=== PATIENT | male | born 1955 | race Caucasian/White ===

== ENCOUNTER → 2021-10-01 09:42 | Outpatient (REF) | payer OTHER, SELFPAY ==
--- NOTE | ~2021-10-01 | NM_ITS ---
EXAMINATION: NM BONE SCAN OF THE WHOLE BODY CLINICAL INFORMATION: Bone metastases. Previous at [facility]. COMPARISON: Previous obesity. TECHNIQUE: Multiple gamma scintillation camera images of the whole body were performed 3 hours following the intravenous administration of 36 mCi Tc-99m MDP. FINDINGS: In the head, no abnormality is seen. In the thoracic cage and upper extremities, there is punctate activity seen in the left posterior shoulder joint. No additional abnormality is seen in the upper extremities or thoracic cage. In the spine, no abnormality is seen. In the pelvis, there is focal abnormality seen in the right posterior iliac crest. Normal symmetrical activity is seen in the SI joints. In the lower extremities, there is heterogeneous bone marrow activity seen in the mid and distal femur bilaterally. In addition, there is moderate intense focal activity seen in the right medial distal femur and left proximal tibia suspicious of metastatic disease. No other definite bony abnormalities are noted. The urinary bladder and faint visualization of both kidneys are noted. NM/NM bone scan whole body IMPRESSION: Suspect metastatic disease involving bilateral distal femur with heterogenous bone marrow. There is focal abnormal activity in the right posterior iliac crest, distal right femur and proximal left tibia. Also visualized is mild focal activity in the left posterior glenohumeral joint or the glenoid.
== END ==
LOC: HO.NUCMED 09:42
PROVIDERS: Visit Provider Internal Medicine
DX: C61 Malignant neoplasm of prostate (principal)
CPT/HCPCS: 78306; A9503

== ENCOUNTER 2021-10-30 10:27 | Outpatient (REF) | payer OTHER, SELFPAY ==
[2021-10-30 12:20] LABS: Cholesterol 248 mg/dL; HDL Cholesterol 42 mg/dL; LDL Cholesterol Calculated 165 mg/dl; Triglycerides 208 mg/dL
[2021-10-30 14:34] LABS: Creatinine Urine 63.82 mg/dL; Microalbum/Creatinine Ratio Ur 31.3 ug/mg cr
== END 2021-10-30 10:28 | disposition home or self-care (01) ==
LOC: HO.HMGCLDS 10:27
PROVIDERS: PCP Internal Medicine; Visit Provider Internal Medicine
DX: Z00.01 Encounter for general adult medical examination with abnormal findings (principal); I10 Essential (primary) hypertension
CPT/HCPCS: 36415; 80061; 82043

== ENCOUNTER 2022-01-28 11:36 | Outpatient (REF) | payer OTHER, SELFPAY ==
[2022-01-28 14:04] LABS: Estimated Average Glucose 183 mg/dL
[2022-01-28 14:11] LABS: Alanine Aminotransferase 15 U/L (0-40); Anion Gap 10 (12-20); Aspartate Amino Transferase 14 U/L (5-37); Blood Urea Nitrogen 14 mg/dL (9-16); Calcium 9.1 mg/dL (8.4-10.2); Carbon Dioxide 25 mmol/L (22-29); Chloride 110 mmol/L (96-108); Cholesterol 220 mg/dL; Estimated Glomerular Filt Rate > 60; Glucose Fasting 142 mg/dL (60-99); HDL Cholesterol 49 mg/dL; LDL Cholesterol Calculated 140 mg/dl; Potassium 4.1 mmol/L (3.3-5.1); Sodium 141 mmol/L (135-145); Triglycerides 159 mg/dL
== END 2022-01-28 11:37 | disposition home or self-care (01) ==
LOC: HO.HMGCLDS 11:36
PROVIDERS: PCP Internal Medicine; Visit Provider Internal Medicine
DX: E11.65 Type 2 diabetes mellitus with hyperglycemia (principal); E11.40 Type 2 diabetes mellitus with diabetic neuropathy, unspecified; Z79.4 Long term (current) use of insulin; I10 Essential (primary) hypertension; E78.5 Hyperlipidemia, unspecified
CPT/HCPCS: 36415; 80048; 80061; 83036; 84450; 84460

== ENCOUNTER 2022-03-07 07:37 | Outpatient (REF) | payer OTHER, SELFPAY ==
--- NOTE | ~2022-03-07 | CT_ITS ---
EXAMINATION: CT ABDOMEN AND PELVIS WITH CONTRAST CLINICAL INFORMATION: Staging. Prostate cancer. COMPARISON: None TECHNIQUE: Multidetector volumetric images were obtained from the superior aspect of the liver through the pubic symphysis following administration of 50 mL of Omnipaque 350 intravenous contrast. The S Oral contrast: No This CT examination was performed using dose optimization techniques as appropriate, variously including the following: *Automated exposure control *Adjustment of mA and/or kV according to patient size (this includes techniques or standardized protocols for targeted exams where dose is matched to indication/reason for exam; i.e. extremities or head) *Use of iterative reconstruction technique DLP: 1072 mGy-cm FINDINGS: LUNG BASES: The visualized lung bases are unremarkable. LIVER, GALLBLADDER, AND BILIARY TREE: The liver is normal in size, shape, and attenuation. No focal hepatic lesion or biliary ductal dilatation is present. The gallbladder is unremarkable with no evidence of radiopaque gallstones, gallbladder wall thickening, or obvious pericholecystic inflammatory changes. PANCREAS: Unremarkable. SPLEEN: There is a 5 mm low-attenuation lesion in the spleen. This is difficult to characterize due to small size. The spleen is otherwise unremarkable. ADRENAL GLANDS: There is a 1 x 1.2 cm right adrenal nodule. Hounsfield units postcontrast measure 58 which is indeterminate. The left adrenal gland is unremarkable. KIDNEYS AND URETERS: The kidneys are normal in size, shape, and attenuation. No hydronephrosis, hydroureter, or calculi seen. No perinephric stranding. BLADDER: There is abnormal soft tissue at the base of the bladder, presumably related to the prostate gland. GASTROINTESTINAL TRACT: There is mild diverticulosis of the colon. Small and large bowel is otherwise normal. The appendix is normal. The stomach is normal. ABDOMINAL WALL: No significant hernia is appreciated. LYMPH NODES: Normal. VASCULAR: There is evidence of atherosclerotic disease. No aneurysm is seen. PELVIC VISCERA: The prostate gland does not appear enlarged. There is abnormal soft tissue at the base of the bladder, presumably related to the prostate gland. No soft tissue mass or enlarged lymph nodes in the pelvis are seen. OSSEOUS STRUCTURES: There is diffuse sclerotic bone disease. CT/CT abdomen pelvis w con IMPRESSION: Diffuse sclerotic bone disease. Abnormal soft tissue seen at the base of the bladder presumably related to the prostate gland. The prostate gland does not appear enlarged. 1 x 1.2 cm right adrenal nodule. 5 mm low-attenuation splenic lesion. No adenopathy. Mild diverticulosis of the colon. Fleischner guidelines were followed.
--- NOTE | ~2022-03-07 | CT_ITS ---
EXAMINATION: CT CHEST WITH CONTRAST CLINICAL INFORMATION: Staging. Prostate cancer. COMPARISON: None TECHNIQUE: Multidetector volumetric CT imaging of the chest was obtained after the administration of 50 mL of Omnipaque 350 intravenous contrast without immediate adverse reactions. Axial MIP volume rendering provided. Sagittal and coronal reformatted images were obtained. This CT examination was performed using dose optimization techniques as appropriate, variously including the following: *Automated exposure control *Adjustment of mA and/or kV according to patient size (this includes techniques or standardized protocols for targeted exams where dose is matched to indication/reason for exam; i.e. extremities or head) *Use of iterative reconstruction technique DLP: 526 mGy-cm FINDINGS: LUNGS: The lungs are clear with no evidence of inflammation or nodules. MEDIASTINUM: There is a trace pericardial effusion. There is mild coronary artery calcification. The mediastinum is otherwise normal. PLEURA: There is no pleural effusion. No pleural mass or thickening. AXILLA: No lymphadenopathy. UPPER ABDOMEN: See CT of the abdomen and pelvis from the same day. OSSEOUS STRUCTURES: There is diffuse sclerotic bone disease. No fracture is seen. CT/CT chest w con IMPRESSION: Trace pericardial effusion. Mild coronary artery calcification. Diffuse sclerotic bone disease. Fleischner guidelines were followed.
[2022-03-07] MEDS: iohexoL 350 MG/ML 100 ML INFUS..BTL 85 ML IV (10:39)
== END 2022-03-07 07:38 | disposition home or self-care (01) ==
LOC: HO.CT 07:37
PROVIDERS: PCP Internal Medicine; Visit Provider Internal Medicine
DX: C79.51 Secondary malignant neoplasm of bone (principal)
CPT/HCPCS: 71260; 74177; Q9967

== ENCOUNTER 2022-04-26 08:36 | Outpatient (REF) | payer OTHER, SELFPAY ==
[2022-04-26 11:55] LABS: Alanine Aminotransferase 14 U/L (0-40); Aspartate Amino Transferase 14 U/L (5-37); Cholesterol 248 mg/dL; HDL Cholesterol 46 mg/dL; LDL Cholesterol Calculated 164 mg/dl; Triglycerides 192 mg/dL
[2022-04-26 12:14] LABS: Estimated Average Glucose 209 mg/dL; Hemoglobin A1c % 8.9 %
== END 2022-04-26 08:37 | disposition home or self-care (01) ==
LOC: HO.HMGCLDS 08:36
PROVIDERS: Visit Provider Internal Medicine
DX: E78.5 Hyperlipidemia, unspecified (principal); E11.65 Type 2 diabetes mellitus with hyperglycemia; Z79.4 Long term (current) use of insulin
CPT/HCPCS: 36415; 80061; 83036; 84450; 84460

== ENCOUNTER → 2022-06-11 09:24 | Outpatient (REF) | payer OTHER, SELFPAY ==
--- NOTE | ~2022-06-11 | NM_ITS ---
EXAMINATION: NM BONE SCAN OF THE WHOLE BODY CLINICAL INFORMATION: Malignant neoplasm of the prostate, evaluate response to therapy. Patient states pain all over. COMPARISON: The previous bone scan dated 10/01/2021 is available for comparison. No recent radiographs are available for comparison. The diagnostic CT scan of the chest, abdomen, and pelvis, dated 03/07/2022, is available for comparison. TECHNIQUE: Multiple gamma scintillation camera images of the whole body were performed 3.25 hours following the intravenous administration of 39 mCi Tc-99m MDP. FINDINGS: In the head, multiple foci of moderately intense abnormal activity are present throughout the calvarium, the base of the anterior fossa, likely in the sphenoid bone, and in the right mandibular ramus. In the thoracic cage and upper extremities, multiple small foci of mildly to moderately intense abnormally increased activity are present in the sternum including the sternal manubrium, the shafts and heads of both humeri, the lateral aspect of the right clavicle at the acromioclavicular joint, and in a few ribs. In the spine, foci of increased activity are present in the lower thoracic and upper lumbar spine. In the pelvis, multiple abnormalities are present throughout the pelvis including a large mildly intense focus in the lateral superior right iliac crest, several foci in the sternum and in additional foci in the left ischium. In the lower extremities, multiple foci are present in both femurs including intense abnormalities in the intertrochanteric region of the right femur and smaller but similarly intense foci in the distal left femur. Additional mild abnormalities are present in the proximal right femur including the right femoral head and intertrochanteric region and a discrete focus in the right proximal femoral shaft. Several lesions are present in the mid and distal shaft of the left femur and in a small focus in the left femoral head. Intense abnormalities are present in the proximal tibias bilaterally, more severely on the right. No other definite bony abnormalities are noted. The urinary bladder and faint visualization of both kidneys are noted. Compared to the previous scan dated 10/01/2021, multiple new lesions are present and previously present lesions, particularly in the periarticular bones of both knees and in the shafts of both femurs and in the calvarium have increased in size and intensity. Lesions are present in the sternum and in the spine. NM/NM bone scan whole body IMPRESSION: Widespread metastatic tumor involvement of bone with significant progression in the bone scan appearance since the prior 10/01/2021 scan.
== END ==
LOC: HO.NUCMED 09:24
PROVIDERS: PCP Internal Medicine; Visit Provider Internal Medicine
DX: C61 Malignant neoplasm of prostate (principal)
CPT/HCPCS: 78306; A9503

== ENCOUNTER 2022-07-15 12:45 | Outpatient (REF) | payer OTHER, SELFPAY ==
[2022-07-15 14:15] LABS: Potassium 4.1 mmol/L (3.3-5.1)
== END 2022-07-15 12:46 | disposition home or self-care (01) ==
LOC: HO.HMGCLDS 12:45
PROVIDERS: PCP Internal Medicine; Visit Provider Internal Medicine
DX: E87.6 Hypokalemia (principal)
CPT/HCPCS: 36415; 84132

== ENCOUNTER 2022-11-05 10:14 | Outpatient (REF) | payer OTHER, SELFPAY ==
--- NOTE | ~2022-11-05 | PE_ITS ---
EXAMINATION: Fluorine-18 FDG PET/CT Scan CLINICAL INDICATION: Rising PSA. Evaluation for metastatic prostate cancer. PROCEDURE: 58 minutes following the intravenous administration of 19.0 mCi of fluorine 18 FDG, images from the base of the skull to the mid thighs were obtained using a combined PET/CT scanner with CT scan based attenuation correction. No intravenous contrast was administered. Transverse, coronal, sagittal, and volume reconstruction projections were obtained. The patient's blood glucose as determined by a finger stick, was 200 mg/dl immediately prior to injection. The radiotracer was injected intravenously through right antecubital superficial vein, without any complications. Total CT exam dose-length product 974.26 mGy-cm * These CT images were obtained using dose optimization techniques as appropriate, variously including the following: Automated exposure control * Adjustment of mA and/or kV according to patient size (this includes techniques or standardized protocols for targeted exams where dose is matched to indication/reason for exam; i.e. extremities or head) * Use of iterative reconstruction technique COMPARISON: Whole-body bone scan done on 06/11/[address] of the chest abdomen and pelvis done on 03/07/2022 FINDINGS: NECK AND VISUALIZED HEAD: No FDG avid disease. THORAX: No FDG avid disease. Trace pericardial effusion. ABDOMEN AND PELVIS: No FDG avid disease. Stable approximately 1.2 cm maximum dimension isodense right adrenal nodule with Hounsfield value of 41. No FDG avid lymphadenopathy. MUSCULOSKELETAL: Extensive diffuse FDG uptake is identified throughout the entire visualized axial and appendicular skeleton, concordant with CT detected extensive diffuse area of sclerosis, consistent with diffuse osseous metastases. VASCULAR: Mild atherosclerotic disease. No evidence of aneurysm. PET/PET CT fusion skull to thigh IMPRESSION: 1. Extensive diffuse osseous metastases throughout the entire axial and visualized appendicular skeleton, concordant with prior whole-body bone scan and CT of the chest abdomen and pelvis done on 06/11/2022 and 03/07/2022 respectively, consistent with M1b disease in this patient with history of prostate cancer. 2. No FDG evidence of visceral metastasis. 3. Follow-up whole-body PSMA PET CT study may be considered for further clarification, if clinically appropriate.
== END 2022-11-05 10:15 | disposition home or self-care (01) ==
LOC: HO.PET 10:14
PROVIDERS: PCP Internal Medicine; Visit Provider Internal Medicine
DX: Z13.89 Encounter for screening for other disorder (principal)

== ENCOUNTER 2023-01-14 08:30 | Outpatient (REF) | payer OTHER, SELFPAY ==
[2023-01-14 12:02] LABS: Estimated Average Glucose 137 mg/dL; Hemoglobin A1c % 6.4 %
[2023-01-14 12:16] LABS: Creatinine Urine 62.85 mg/dL; Microalbumin Urine < 5.0 mg/L
[2023-01-14 12:30] LABS: Alanine Aminotransferase 11 U/L (0-40); Anion Gap 15 (12-20); Aspartate Amino Transferase 19 U/L (5-37); Blood Urea Nitrogen 12 mg/dL (9-16); Calcium 7.4 mg/dL (8.4-10.2); Carbon Dioxide 20 mmol/L (22-29); Chloride 110 mmol/L (96-108); Cholesterol 240 mg/dL; Estimated Glomerular Filt Rate > 60; Glucose Fasting 130 mg/dL (60-99); HDL Cholesterol 35 mg/dL; LDL Cholesterol Calculated 153 mg/dl; Potassium 5.7 mmol/L (3.3-5.1); Sodium 139 mmol/L (135-145); Triglycerides 263 mg/dL
== END 2023-01-14 08:31 | disposition home or self-care (01) ==
LOC: HO.HMGCLDS 08:30
PROVIDERS: PCP Internal Medicine; Visit Provider Internal Medicine
DX: E11.40 Type 2 diabetes mellitus with diabetic neuropathy, unspecified (principal); E11.65 Type 2 diabetes mellitus with hyperglycemia; E78.5 Hyperlipidemia, unspecified; I10 Essential (primary) hypertension; Z79.4 Long term (current) use of insulin
CPT/HCPCS: 36415; 80048; 80061; 82043; 83036; 84450; 84460

== ENCOUNTER 2023-01-30 12:39 | Outpatient (REF) | payer OTHER, SELFPAY ==
[2023-01-30 14:39] LABS: Alanine Aminotransferase 10 U/L (0-40); Albumin Level 3.6 g/dL (3.5-5.0); Alkaline Phosphatase 341 U/L (39-117); Anion Gap 13 (12-20); Aspartate Amino Transferase 19 U/L (5-37); Bilirubin Total 0.4 mg/dL (0.0-1.0); Blood Urea Nitrogen 10 mg/dL (9-16); Calcium 8.3 mg/dL (8.4-10.2); Carbon Dioxide 22 mmol/L (22-29); Chloride 111 mmol/L (96-108); Estimated Glomerular Filt Rate > 60; Glucose Random 180 mg/dL (60-115); Potassium 5.1 mmol/L (3.3-5.1); Sodium 141 mmol/L (135-145); Total Protein 5.5 g/dL (6.5-8.0)
== END 2023-01-30 12:40 | disposition home or self-care (01) ==
LOC: HO.HMGCLDS 12:39
PROVIDERS: PCP Internal Medicine; Visit Provider Internal Medicine
DX: C79.51 Secondary malignant neoplasm of bone (principal)
CPT/HCPCS: 36415; 80053

== ENCOUNTER 2023-02-19 09:30 | Outpatient (RCR) | payer OTHER, SELFPAY ==
[2021-07-31 11:04] VITALS: BP 147/66; PULSE 80; RESP 14; TEMP 36.2; O2SAT 100; BMI 32.0
--- NOTE | 2021-07-31 11:17 | P.CNHO_ITS ---
Subjective - Subjective Chief complaint: Prostate cancer Consult date: 07/31/21 Primary Care Provider: Tyrese Diop Medical Summary: Diagnosis: Metastatic prostate cancer March 2021 Presented with urinary obstruction and diffuse abdominal and back pain in March 2021. CT abdomen/pelvis with contrast performed 04/14/2021 at [facility] revealed markedly distended bladder. Diffuse sclerotic bone disease concerning for metastatic disease, moderate bilateral hydroureteronephrosis secondary to bladder distention. Small bilateral pleural effusions. Bone scan performed 04/02/2021 revealed diffuse sclerotic bone lesions throughout the axial skeleton and proximal long bones. He was started on leuprolide 45 mg subQ every 6 months and bicalutamide 50 mg p.o. daily. 04/27/2021 he was started on abiraterone 1000 mg p.o. daily and prednisone [address] korey Hines. HPI - Consult Narrative Reason for consult: Metastatic prostate cancer Narrative: Isaac Salvador is a 66 year old male who has been diagnosed with metastatic [facility] cancer in March 2021. All his care until now has been at [facility]. He is currently receiving treatment with abiraterone. He is receiving Lupron injections with his urologist Dr. Eckert. He has undergone prostate biopsy. He was told he has bony metastasis, he does not recall being started on bone strengthening therapy with denosumab. He wants to switch his care to [facility] as he lives closer here and his family lives in this area. At this time, he denies any acute complaints such as chest pain, shortness of breath, excess fatigue, fever or chills. He is taking his pills abiraterone along with prednisone twice daily and tolerating it well. There is no family history of prostate cancer. Review of Systems - Constitutional Reports as per HPI, Reports no additional constitutional complaints - Cardiovascular Reports no additional cardiovascular complaints - Respiratory Reports no additional respiratory complaints - Gastrointestinal Reports no additional gastrointestinal complaints [facility] Medical History: Medical History (Last Updated 07/31/21 @ 08:23 by Leonor Dooley) Anxiety Benign hypertension Bone pain BPH (benign prostatic hyperplasia) Chronic post-traumatic stress disorder (PTSD) CTS (carpal tunnel syndrome) Depression, major Diabetic neuropathy Elevated alkaline phosphatase level Erectile dysfunction History of nephrolithiasis History of nuclear stress test 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 Insulin long-term use 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 benzodiazepine use Obesity OCD (obsessive compulsive disorder) Polyneuropathy in diabetes Type 2 diabetes mellitus Family History: Family History (Last Updated 07/31/21 @ 11:10 by Leonor Dooley) Paternal Uncle Cancer Maternal Uncle Prostate cancer Maternal Uncle Prostate cancer Family/Other Prostate cancer Maternal Grandmother Cancer of kidney Sister Skin cancer Sister Stroke Father Heart attack Surgical History: Surgical History (Last Updated 07/31/21 @ 11:07 by Leonor Dooley) No pertinent past surgical history Social History: Social History (Last Updated 07/31/21 @ 11:10 by Leonor Dooley) Alcohol History: Alcohol intake: former Alcohol History Details: Alcohol intake frequency: does not drink Tobacco History: Patient Tobacco Use Status: Never used Tobacco Substance Use History: Use of substances other than those prescribed or required for medical reasons : No Home Medications and Allergies Home Medications Medication Instructions Recorded Confirmed Type cholecalciferol (vitamin D3) 50 50 mcg PO DAILY 07/31/21 07/31/21 History mcg (2,000 unit) capsule (Vitamin D3) finasteride 5 mg tablet 5 mg PO DAILY 07/31/21 07/31/21 History gabapentin 600 mg tablet 600 mg PO DAILY 07/31/21 07/31/21 History glyburide 5 mg tablet 5 mg PO BID 07/31/21 07/31/21 History insulin glargine 100 unit/mL (3 20 unit SUBCUT QAM 07/31/21 07/31/21 History mL) subcutaneous pen (Lantus Solostar U-100 Insulin) insulin needles (disposable) 31 07/31/21 07/31/21 History leuprolide (6 month) 45 mg (6 45 mg SUBCUT [id number] 07/31/21 07/31/21 History month) subcutaneous syringe (Eligard) lisinopril 40 mg tablet 40 mg PO DAILY 07/31/21 07/31/21 History lorazepam 1 mg tablet 1 mg PO TID PRN 07/31/21 07/31/21 History [id number]-[id number]-efaep acid 0.4 1 tab PO DAILY 07/31/21 07/31/21 History mg-lycopene 300 mcg-lutein 250 mcg tablet (Centrum Silver) prednisone 5 mg tablet 1 tab PO BID 07/31/21 07/31/21 History tamsulosin 0.4 mg capsule 0.4 mg PO DAILY 07/31/21 07/31/21 History Allergies Allergy/AdvReac Type Severity Reaction Status Date / Time metformin Allergy Intermediate vomitting Verified 07/31/21 11:10 Physical Exam Vital signs: Vital Signs Temp 97.1 F 07/31/21 11:04 Pulse 80 07/31/21 11:04 Resp 14 07/31/21 11:04 BP 147/66 H 07/31/21 11:04 Pulse Ox 100 07/31/21 11:04 Intake & Output 07/30/21 07/31/21 07/31/21 18:59 06:59 18:59 Other: Weight 101.2 kg Weight in Grams [id number] Weight 101.2 kg - Constitutional Present: no acute distress, average body habitus - Routine HEENT Exam Head: Present: normal inspection Eye: Present: normal appearance - Routine Neck Exam Present: supple. Absent: lymphadenopathy - Routine Respiratory Exam Present: CTAB. Absent: accessory muscle use - Routine Cardiovascular Exam Cardiovascular: Present: S1, S2 - Routine Abdominal Exam Present: normal bowel sounds. Absent: mass - Routine Extremities Exam Absent: calf tenderness, pedal edema - Routine Skin Exam Present: intact. Absent: cyanosis Hem/Onc Consult Result - Labs CBC & Chem 7: 07/31/21 12:24 07/31/21 12:24 Assessment and Plan Patient Active problem list reviewed?: Yes (1) Prostate cancer Status: Acute Assessment and plan: 1. This is a pleasant 66-year-old male with metastatic prostate cancer, adenocarcinoma widely metastatic to bone. Initial PSA of 501. He was started on combined androgen blockade, Casodex and Lupron. He was taken of the Casodex a few weeks later and was started on abiraterone 1000 mg daily along with prednisone 5 mg b.i.d.. He has been on this since April 2021. The PSA has come down to 4.17. His bone scan showed innumerable metastatic lesions throughout the axial skeleton, femurs, humeri and left proximal tibia. Since he does not have castration resistant prostate cancer, I will be holding off on bone strengthening therapy such Zolendronic acid or denosumab. His bone pain appears to be well controlled at this time. 2. Normocytic anemia. Previously his hemoglobin was below 9 gram/dL. Workup was negative for hematinic deficiencies and hemolysis. 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 His anemia has improved significantly with treatment of his cancer. Follow-up in 1 month. - Time Spent With Patient Time Spent with Patient (in minutes): 35
[2021-07-31 12:36] LABS: MANUAL DIFF FLAG NO
[2021-07-31 12:59] LABS: Basophils Percent Auto 0.2 % (0-2); Eosinophils Absolute Auto 0.1 X10*3/uL (0.0-0.4); Eosinophils Percent Auto 1.2 % (0-4); Hemoglobin 11.3 g/dl (14.0-18.0); Imm Gran Abs Auto 0.03 X10*3/uL (0.00-0.03); Imm Gran Pct Auto 0.5 % (0.0-0.4); Lymphocytes Absolute Auto 1.2 X10*3/uL (1.2-4.9); Lymphocytes Percent Auto 18.8 % (20-40); Mean Corpuscular HGB Conc 31.4 g/dl (31.0-36.0); Mean Corpuscular Hemoglobin 28.6 pg (27.0-33.0); Mean Corpuscular Volume 91.1 fL (80-98); Mean Platelet Volume 9.9 fL (9.4-12.4); Monocytes Absolute Auto 0.4 X10*3/uL (0.1-1.2); Monocytes Percent Auto 6.1 % (2-11); Neutrophils Absolute Auto 4.8 X10*3/uL (2.0-8.3); Neutrophils Percent Auto 73.2 % (45-73); Platelet Count 245 X10*3/uL (160-400); Red Blood Count 3.95 X10*6/uL (4.60-5.80); Red Cell Distribution Width 13.2 % (11.0-16.0); White Blood Count 6.6 X10*3/uL (4.8-10.8)
--- NOTE | 2021-07-31 13:01 | MHC.HEMONC ---
Pt here for consult with Dr Plaza. He was accompanied by his sister. He is transferring care from [facility] with Dr Hines. He is continuing on Zytiga and Prednisone and Dr Plaza reordered at [facility]. Pt had labs drawn. We will call with appt for Denosumab once auth is obtained. He will have second dose in a month from then and see Dr Plaza in f/u.
[2021-07-31 13:20] LABS: Albumin Level 4.2 g/dL (3.5-5.0); Anion Gap 14 (12-20); Bilirubin Total 0.5 mg/dL (0.0-1.0); Blood Urea Nitrogen 17 mg/dL (9-16); Calcium 9.3 mg/dL (8.4-10.2); Chloride 107 mmol/L (96-108); Creatinine Clr Calc Pharmacy 88.9; Estimated Glomerular Filt Rate > 60; Glucose Random 304 mg/dL (60-115); Potassium 5.1 mmol/L (3.3-5.1); Sodium 139 mmol/L (135-145); Total Protein 6.7 g/dL (6.5-8.0)
[2021-07-31 13:32] LABS: Alanine Aminotransferase 19 U/L (0-40); Alkaline Phosphatase 900 U/L (39-117); Aspartate Amino Transferase 16 U/L (5-37); Carbon Dioxide 23 mmol/L (22-29)
[2021-07-31 13:40] LABS: Prostate Specific Antigen 4.17 ng/mL (<0.05-4.0)
--- NOTE | 2021-07-31 16:10 | MHC.HEMONCMA ---
Patient came in for a consult, states he is doing alright. Clinical summary was reviewed and updated. Patient had labs. Dr Plaza wants him to have Prolia injections, we are waiting for auth. Once the auth comes back we will schedule him. We are also waiting on his pathology report sent to us along with his slides sent to our Pathology.
--- NOTE | 2021-08-02 11:15 | MHC.HEMONC ---
Denosumab PA request on hold (08/01/21) per Dr. Plaza .
--- NOTE | 2021-08-03 08:52 | MHC.HEMONC ---
Pt is not going to be receiving Denosumab per Dr Plaza. Pt notified. He has f/u with Dr Plaza in 6 weeks.
--- NOTE | 2021-09-10 11:27 | P.PNHO_ITS ---
Medical Summary - Medical Summary Date of Service: 09/10/21 Chief complaint: Follow-up Medical Summary: Diagnosis: Metastatic prostate cancer March 2021 Presented with urinary obstruction and diffuse abdominal and back pain in March 2021. CT abdomen/pelvis with contrast performed 04/14/2021 at [facility] revealed markedly distended bladder. Diffuse sclerotic bone disease concerning for metastatic disease, moderate bilateral hydroureteronephrosis secondary to bladder distention. Small bilateral pleural effusions. Bone scan performed 04/02/2021 revealed diffuse sclerotic bone lesions throughout the axial skeleton and proximal long bones. He was started on leuprolide 45 mg subQ every 6 months and bicalutamide 50 mg p.o. daily. 04/27/2021 he was started on abiraterone 1000 mg p.o. daily and prednisone [address] korey Hines. His PSA is coming down. I will repeat bone scan at this time. He sugars are slightly elevated as he is on prednisone. He will follow up with his PCP about this. Follow-up in 2 months. Interval History Interval history: Patient is here in follow-up. He is doing better overall but reports persistent achiness in bones. This is not persistent and it is fleeting. He denies any acute complaints such as chest pain, shortness of breath, excess fatigue, fever or chills. He is taking his pills abiraterone along with prednisone twice daily and tolerating it well. He does report higher blood sugar readings. He has not had a follow-up with his PCP in sometime. He is changing his physician. Review of Systems - Constitutional Reports as per HPI, Reports no additional constitutional complaints - Cardiovascular Reports no additional cardiovascular complaints - Respiratory Reports no additional respiratory complaints - Gastrointestinal Reports no additional gastrointestinal complaints [facility] Medical History: Medical History (Last Reviewed 09/10/21 @ 11:36 by Leonor Dooley) Anxiety Benign hypertension Bone pain BPH (benign prostatic hyperplasia) Chronic post-traumatic stress disorder (PTSD) CTS (carpal tunnel syndrome) Depression, major Diabetic neuropathy Elevated alkaline phosphatase level Erectile dysfunction History of nephrolithiasis History of nuclear stress test 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 Insulin long-term use 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 benzodiazepine use Obesity OCD (obsessive compulsive disorder) Polyneuropathy in diabetes Type 2 diabetes mellitus Family History: Family History (Last Reviewed 09/10/21 @ 11:36 by Leonor Dooley) Paternal Uncle Cancer Maternal Uncle Prostate cancer Maternal Uncle Prostate cancer Family/Other Prostate cancer Maternal Grandmother Cancer of kidney Sister Skin cancer Sister Stroke Father Heart attack Surgical History: Surgical History (Last Reviewed 09/10/21 @ 11:36 by Leonor Dooley) No pertinent past surgical history Social History: Social History (Last Updated 07/31/21 @ 11:10 by Leonor Dooley) Alcohol History: Alcohol intake: former Alcohol History Details: Alcohol intake frequency: does not drink Tobacco History: Patient Tobacco Use Status: Never used Tobacco Substance Use History: Use of substances other than those prescribed or required for medical reasons : No Oncology Screenings - ECOG Performance Status ECOG Performance Status: 1 Home Medications and Allergies Home Medications Medication Instructions Recorded Confirmed Type cholecalciferol (vitamin D3) 50 50 mcg PO DAILY 07/31/21 09/10/21 History mcg (2,000 unit) capsule (Vitamin D3) finasteride 5 mg tablet 5 mg PO DAILY 07/31/21 09/10/21 History gabapentin 600 mg tablet 600 mg PO DAILY 07/31/21 09/10/21 History glyburide 5 mg tablet 5 mg PO BID 07/31/21 09/10/21 History insulin glargine 100 unit/mL (3 20 unit SUBCUT QAM 07/31/21 09/10/21 History mL) subcutaneous pen (Lantus Solostar U-100 Insulin) insulin needles (disposable) 31 07/31/21 09/10/21 History leuprolide (6 month) 45 mg (6 45 mg SUBCUT [id number] 07/31/21 09/10/21 History month) subcutaneous syringe (Eligard) lisinopril 40 mg tablet 40 mg PO DAILY 07/31/21 09/10/21 History lorazepam 1 mg tablet 1 mg PO TID PRN 07/31/21 09/10/21 History hipvbwjx-nxz-poypb acid 0.4 1 tab PO DAILY 07/31/21 09/10/21 History mg-lycopene 300 mcg-lutein 250 mcg tablet (Centrum Silver) prednisone 5 mg tablet 1 tab PO BID 07/31/21 09/10/21 History tamsulosin 0.4 mg capsule 0.4 mg PO DAILY 07/31/21 09/10/21 History Allergies Allergy/AdvReac Type Severity Reaction Status Date / Time metformin Allergy Intermediate vomitting Verified 09/10/21 11:36 Exam Vital signs: Vital Signs Temp 97.1 F 07/31/21 11:04 Pulse 80 07/31/21 11:04 Resp 14 07/31/21 11:04 BP 147/66 H 07/31/21 11:04 Pulse Ox 100 07/31/21 11:04 Weight 101.2 kg Body Mass Index 32.0 - Constitutional Present: no acute distress, average body habitus - Routine HEENT Exam Head: Present: normal inspection - Routine Respiratory Exam Present: CTAB. Absent: accessory muscle use - Routine Cardiovascular Exam Cardiovascular: Present: S1, S2 - Routine Abdominal Exam Present: normal bowel sounds. Absent: mass - Routine Extremities Exam Absent: calf tenderness, pedal edema - Routine Skin Exam Present: intact. Absent: cyanosis Data - Labs CBC & Chem 7: 09/10/21 12:07 09/10/21 12:07 Labs: 07/31/21 12:24 Complete Blood Count Auto Diff Routine Comprehensive Met. Panel Routine PSA [Prostate Specific Antigen] Routine Laboratory Last Values WBC 6.6 X10*3/uL (4.8-10.8) 07/31/21 12:24 RBC 3.95 X10*6/uL (4.60-5.80) L 07/31/21 12:24 Hgb 11.3 g/dl (14.0-18.0) L 07/31/21 12:24 Hct 36.0 % (42-52) L 07/31/21 12:24 MCV 91.1 fL (80-98) 07/31/21 12:24 MCH 28.6 pg (27.0-33.0) 07/31/21 12:24 MCHC 31.4 g/dl (31.0-36.0) 07/31/21 12:24 RDW 13.2 % (11.0-16.0) 07/31/21 12:24 Plt Count 245 X10*3/uL (160-400) 07/31/21 12:24 MPV 9.9 fL (9.4-12.4) 07/31/21 12:24 Immature Gran % (Auto) 0.5 % (0.0-0.4) H 07/31/21 12:24 Neut % (Auto) 73.2 % (45-73) H 07/31/21 12:24 Lymph % (Auto) 18.8 % (20-40) L 07/31/21 12:24 Fallon % (Auto) 6.1 % (2-11) 07/31/21 12:24 Eos % (Auto) 1.2 % (0-4) 07/31/21 12:24 Baso % (Auto) 0.2 % (0-2) 07/31/21 12:24 Lymph # (Auto) 1.2 X10*3/uL (1.2-4.9) 07/31/21 12:24 Fallon # (Auto) 0.4 X10*3/uL (0.1-1.2) 07/31/21 12:24 Eos # (Auto) 0.1 X10*3/uL (0.0-0.4) 07/31/21 12:24 Baso # (Auto) 0.0 X10*3/uL (0.0-0.2) 07/31/21 12:24 Abs Immat Gran (auto) 0.03 X10*3/uL (0.00-0.03) 07/31/21 12:24 Absolute Neuts (auto) 4.8 X10*3/uL (2.0-8.3) 07/31/21 12:24 Absolute Nucleated RBC 0.000 X10*3/uL (0.0-0.012) 07/31/21 12:24 Nucleated RBC % (auto) 0.0 /100WBC (0.0-0.2) 07/31/21 12:24 Sodium 139 mmol/L (135-145) 07/31/21 12:24 Potassium 5.1 mmol/L (3.3-5.1) 07/31/21 12:24 Chloride 107 mmol/L (96-108) 07/31/21 12:24 Carbon Dioxide 23 mmol/L (22-29) 07/31/21 12:24 Anion Gap 14 (12-20) 07/31/21 12:24 BUN 17 mg/dL (9-16) H 07/31/21 12:24 Creatinine 1.00 mg/dL (0.5-1.4) 07/31/21 12:24 Estim Creat Clear Calc 88.9 07/31/21 12:24 Estimated GFR > 60 07/31/21 12:24 Random Glucose 304 mg/dL (60-115) H 07/31/21 12:24 Calcium 9.3 mg/dL (8.4-10.2) 07/31/21 12:24 Total Bilirubin 0.5 mg/dL (0.0-1.0) 07/31/21 12:24 AST 16 U/L (5-37) 07/31/21 12:24 ALT 19 U/L (0-40) 07/31/21 12:24 Alkaline Phosphatase 900 U/L (39-117) H 07/31/21 12:24 Total Protein 6.7 g/dL (6.5-8.0) 07/31/21 12:24 Albumin 4.2 g/dL (3.5-5.0) 07/31/21 12:24 Prostate Specific Ag 4.17 ng/mL (<0.05-4.0) H 07/31/21 12:24 Assessment and Plan Patient Active problem list reviewed?: Yes (1) Prostate cancer Status: Chronic Assessment and plan: 1. This is a pleasant 66-year-old male with metastatic prostate cancer, adenocarcinoma widely metastatic to bone. Initial PSA of 501. He was started on combined androgen blockade, Casodex and Lupron. He was taken of the Casodex a few weeks later and was started on abiraterone 1000 mg daily along with prednisone 5 mg b.i.d.. He has been on this since April 2021. The PSA has come down to 4.17. His bone scan showed innumerable metastatic lesions throughout the axial skeleton, femurs, humeri and left proximal tibia. Since he does not have castration resistant prostate cancer, I will be holding off on bone strengthening therapy such Zolendronic acid or denosumab. He has mild stiffness in his joints and some muscular pain. This could be side effect of his ongoing treatment. PSA level is down to 3.86 today, his alkaline phosphatase level has come down from 900 to 302 U/L. He was advised to continue with the same medications. 2. Normocytic anemia. Previously his hemoglobin was below 9 gram/dL. Workup was negative for hematinic deficiencies and hemolysis. 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 His anemia has improved significantly with treatment of his cancer. Follow-up in 2 months. - Time Spent With Patient Time Spent with Patient (in minutes): 15
[2021-09-10 11:32] VITALS: BP 209/95; PULSE 76; RESP 16; TEMP 36.2; O2SAT 98; BMI 33.7
[2021-09-10 12:11] LABS: MANUAL DIFF FLAG NO
[2021-09-10 12:13] LABS: Basophils Percent Auto 0.2 % (0-2); Eosinophils Absolute Auto 0.1 X10*3/uL (0.0-0.4); Eosinophils Percent Auto 1.4 % (0-4); Hematocrit 36.1 % (42.0-52.0); Hemoglobin 11.9 g/dl (14.0-18.0); Imm Gran Abs Auto 0.01 X10*3/uL (0.00-0.03); Imm Gran Pct Auto 0.2 % (0.0-0.4); Lymphocytes Absolute Auto 1.2 X10*3/uL (1.2-4.9); Lymphocytes Percent Auto 23.1 % (20-40); Mean Corpuscular Hemoglobin 28.4 pg (27.0-33.0); Mean Corpuscular Volume 86.2 fL (80.0-98.0); Mean Platelet Volume 9.7 fL (9.4-12.4); Monocytes Absolute Auto 0.3 X10*3/uL (0.1-1.2); Monocytes Percent Auto 5.9 % (2-11); Neutrophils Absolute Auto 3.5 x10*3/uL (2.0-8.3); Neutrophils Percent Auto 69.2 % (45-73); Platelet Count 197 X10*3/uL (160-400); Red Blood Count 4.19 X10*6/uL (4.60-5.80); Red Cell Distribution Width 12.5 % (11.0-16.0); White Blood Count 5.1 X10*3/uL (4.8-10.8)
[2021-09-10 12:33] LABS: Alanine Aminotransferase 16 U/L (0-40); Albumin Level 3.9 g/dL (3.5-5.0); Alkaline Phosphatase 302 U/L (39-117); Anion Gap 15 (12-20); Aspartate Amino Transferase 17 U/L (5-37); Bilirubin Total 0.9 mg/dL (0.0-1.0); Blood Urea Nitrogen 7 mg/dL (9-16); Calcium 9.5 mg/dL (8.4-10.2); Carbon Dioxide 22 mmol/L (22-29); Chloride 107 mmol/L (96-108); Estimated Glomerular Filt Rate > 60; Glucose Random 286 mg/dL (60-115); Potassium 3.9 mmol/L (3.3-5.1); Sodium 140 mmol/L (135-145); Total Protein 6.2 g/dL (6.5-8.0)
--- NOTE | 2021-09-10 12:51 | MHC.HEMONCMA ---
Patient came in for a follow up today, he states that he is feeling off . He reports that he is having increased aches and pains, along with increased unsteadiness for 1 week. He reports that his sugar this morning was 300, and that prednisone that he is taking is causing this. Clinical summary was reviewed and updated. Patient had labs and will return in 2 months for a folllow up. Dr Plaza ordered a bone scan for patient, this has been placed in order kineseologist.
[2021-09-10 13:18] LABS: Prostate Specific Antigen 3.86 ng/mL (<0.05-4.0)
--- NOTE | 2021-09-10 14:00 | MHC.HEMONC ---
Pt was in this morning and SBP was 209. He took it several times at home and it was WNL. 136/87. He wanted me to let Dr Plaza know.
--- NOTE | 2021-10-30 15:39 | MHC.HEMONC ---
Message left on Triage line that patient would like Cary Hu RN to call him. Message given to Cary.
--- NOTE | 2021-11-13 12:47 | P.PNHO_ITS ---
[facility] Telehealth - Telehealth Location of Provider rendering services: Office Location of Patient: Home Patient Identification confirmed using: Name, : Yes Telehealth Method: Telephone Patient verbally consented to treatment: Yes Patient verbally consented to billing insurance company: Yes Patient informed of any privacy concerns related to visit: Yes Medical Summary - Medical Summary Date of Service: 11/13/21 Chief complaint: Follow-up Medical Summary: Diagnosis: Metastatic prostate cancer March 2021 Presented with urinary obstruction and diffuse abdominal and back pain in March 2021. CT abdomen/pelvis with contrast performed 04/14/2021 at [facility] revealed markedly distended bladder. Diffuse sclerotic bone disease concerning for metastatic disease, moderate bilateral hydroureteronephrosis secondary to bladder distention. Small bilateral pleural effusions. Bone scan performed 04/02/2021 revealed diffuse sclerotic bone lesions throughout the axial skeleton and proximal long bones. He was started on leuprolide 45 mg subQ every 6 months and bicalutamide 50 mg p.o. daily. 04/27/2021 he was started on abiraterone 1000 mg p.o. daily and prednisone [address] korey Hines. His PSA is coming down. I will repeat bone scan at this time. He sugars are slightly elevated as he is on prednisone. He will follow up with his PCP about this. Follow-up in 2 months. Interval History Interval history: This was a scheduled follow-up for patient. He did not want to come in because of new wave of the pandemic. He is doing okay. He denies any acute complaints such as chest pain, shortness of breath, excess fatigue, fever or chills. He states that he is taking both bicalutamide and abiraterone along with prednisone. Sugars are better controlled now. He denies any aches or pains. Review of Systems - Constitutional Reports no additional constitutional complaints - Cardiovascular Reports no additional cardiovascular complaints - Respiratory Reports no additional respiratory complaints - Gastrointestinal Reports no additional gastrointestinal complaints Home Medications and Allergies Home Medications Medication Instructions Recorded Confirmed Type cholecalciferol (vitamin D3) 50 50 mcg PO DAILY 07/31/21 11/13/21 History mcg (2,000 unit) capsule (Vitamin D3) finasteride 5 mg tablet 5 mg PO DAILY 07/31/21 11/13/21 History gabapentin 600 mg tablet 600 mg PO DAILY 07/31/21 11/13/21 History glyburide 5 mg tablet 5 mg PO BID 07/31/21 11/13/21 History insulin needles (disposable) 31 07/31/21 11/13/21 History leuprolide (6 month) 45 mg (6 45 mg SUBCUT [id number] 07/31/21 11/13/21 History month) subcutaneous syringe (Eligard) lisinopril 40 mg tablet 40 mg PO DAILY 07/31/21 11/13/21 History lorazepam 1 mg tablet 1 mg PO TID PRN 07/31/21 11/13/21 History vhjiluve-sqp-ikgkl acid 0.4 1 tab PO DAILY 07/31/21 11/13/21 History mg-lycopene 300 mcg-lutein 250 mcg tablet (Centrum Silver) tamsulosin 0.4 mg capsule 0.4 mg PO DAILY 07/31/21 11/13/21 History bicalutamide 50 mg tablet (Casodex) 50 mg PO DAILY 10/30/21 11/13/21 History abiraterone 250 mg tablet (Zytiga) 4 tab PO DAILY 11/13/21 11/13/21 History Allergies Allergy/AdvReac Type Severity Reaction Status Date / Time metformin AdvReac Intermediate vomiting Verified 11/13/21 11:35 Exam Vital signs: Vital Signs Temp 97.2 F 09/10/21 11:32 Pulse 76 09/10/21 11:32 Resp 16 09/10/21 11:32 BP 209/95 H 09/10/21 11:32 Pulse Ox 98 09/10/21 11:32 Weight 106.6 kg BMI result Body Mass Index 33.7 - Constitutional Present: no acute distress, average body habitus - Routine HEENT Exam Head: Present: normal inspection - Routine Respiratory Exam Present: CTAB. Absent: accessory muscle use - Routine Cardiovascular Exam Cardiovascular: Present: S1, S2 - Routine Abdominal Exam Present: normal bowel sounds. Absent: mass - Routine Extremities Exam Absent: calf tenderness, pedal edema - Routine Skin Exam Present: intact. Absent: cyanosis Data - Labs CBC & Chem 7: 09/10/21 12:07 09/10/21 12:07 Assessment and Plan Patient Active problem list reviewed?: Yes (1) Prostate cancer Status: Chronic Assessment and plan: 1. This is a pleasant 66-year-old male with metastatic prostate cancer, adenocarcinoma widely metastatic to bone. Initial PSA of 501. He was started on combined androgen blockade, Casodex and Lupron. He was taken of the Casodex a few weeks later and was started on abiraterone 1000 mg daily along with prednisone 5 mg b.i.d.. He has been on this since April 2021. The PSA has come down to 4.17. His bone scan showed innumerable metastatic lesions throughout the axial skeleton, femurs, humeri and left proximal tibia. Since he does not have castration resistant prostate cancer, I will be holding off on bone strengthening therapy such Zolendronic acid or denosumab. PSA level is down to 3.86 in August. Patient was supposed to come in for blood work today but he did not want to because of the pandemic. Today he mention that he was taking bicalutamide as well. He was advised to stop taking bicalutamide, he supposed to be only on abiraterone with prednisone. He will continue to receive Lupron every 6 months. Follow-up in 3 weeks for labs and physical examination. I spent 10 minutes on the phone with the patient. - Time Spent With Patient Time Spent with Patient (in minutes): 10
[2021-12-03 10:41] VITALS: BP 169/94; PULSE 88; RESP 16; TEMP 36.6; O2SAT 98; BMI 33.6
--- NOTE | 2021-12-03 10:44 | PM.HEMONCPN ---
Medical Summary - Medical Summary Date of Service: 12/03/21 Chief complaint: follow-up Medical Summary: Diagnosis: Metastatic prostate cancer March 2021 Presented with urinary obstruction and diffuse abdominal and back pain in March 2021. CT abdomen/pelvis with contrast performed 04/14/2021 at [facility] revealed markedly distended bladder. Diffuse sclerotic bone disease concerning for metastatic disease, moderate bilateral hydroureteronephrosis secondary to bladder distention. Small bilateral pleural effusions. Bone scan performed 04/02/2021 revealed diffuse sclerotic bone lesions throughout the axial skeleton and proximal long bones. He was started on leuprolide 45 mg subQ every 6 months and bicalutamide 50 mg p.o. daily. 04/27/2021 he was started on abiraterone 1000 mg p.o. daily and prednisone [address] korey Hines. Interval History Interval history: This was a scheduled follow-up for patient. He states that he is taking abiraterone and prednisone daily. He no longer is taking bicalutamide. He has no complaints other than mild fatigue. Review of Systems - Constitutional Reports as per HPI, Reports no additional constitutional complaints - Respiratory Reports no additional respiratory complaints - Gastrointestinal Reports no additional gastrointestinal complaints [facility] Medical History: Medical History (Last Reviewed 12/03/21 @ 10:45 by Leonor Dooley) Anxiety BPH (benign prostatic hyperplasia) Chronic post-traumatic stress disorder (PTSD) CTS (carpal tunnel syndrome) Depression, major Diabetes mellitus with hyperglycemia, with long-term current use of insulin Diabetic neuropathy Dyslipidemia Erectile dysfunction Essential hypertension History of nephrolithiasis History of nuclear stress test 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 benzodiazepine use Obesity OCD (obsessive compulsive disorder) PTSD (post-traumatic stress disorder) Family History: Family History (Last Reviewed 12/03/21 @ 10:45 by Leonor Dooley) Paternal Uncle Cancer Maternal Uncle Prostate cancer Maternal Uncle Prostate cancer Family/Other Prostate cancer Maternal Grandmother Cancer of kidney Sister Skin cancer Sister Stroke Father Heart attack Surgical History: Surgical History (Last Reviewed 12/03/21 @ 10:45 by Leonor Dooley) No pertinent past surgical history Social History: Social History (Last Updated 12/03/21 @ 10:46 by Leonor Dooley) Living Situation History: Household Members: Significant Other Housing: House Are you a primary healthcare facility administrator to a significant other at home: No Do you presently have visiting nurse or other home services: No Alcohol History Details: 1. How often do you have a drink containing alcohol?: a. 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 Home Medications and Allergies Home Medications Medication Instructions Recorded Confirmed Type cholecalciferol (vitamin D3) 50 50 mcg PO DAILY 07/31/21 12/03/21 History mcg (2,000 unit) capsule (Vitamin D3) finasteride 5 mg tablet 5 mg PO DAILY 07/31/21 12/03/21 History gabapentin 600 mg tablet 600 mg PO DAILY 07/31/21 12/03/21 History glyburide 5 mg tablet 5 mg PO BID 07/31/21 12/03/21 History insulin needles (disposable) 31 07/31/21 12/03/21 History leuprolide (6 month) 45 mg (6 45 mg SUBCUT [id number] 07/31/21 12/03/21 History month) subcutaneous syringe (EliErecruitd) lisinopril 40 mg tablet 40 mg PO DAILY 07/31/21 12/03/21 History cxgsslcw-akv-uphkv acid 0.4 1 tab PO DAILY 07/31/21 12/03/21 History mg-lycopene 300 mcg-lutein 250 mcg tablet (Centrum Silver) tamsulosin 0.4 mg capsule 0.4 mg PO DAILY 07/31/21 12/03/21 History bicalutamide 50 mg tablet (Casodex) 50 mg PO DAILY 10/30/21 12/03/21 History abiraterone 250 mg tablet (Zytiga) 4 tab PO DAILY 11/13/21 12/03/21 History Allergies Allergy/AdvReac Type Severity Reaction Status Date / Time metformin AdvReac Intermediate vomiting Verified 12/03/21 10:46 Exam Vital signs: Vital Signs Temp 97.9 F 12/03/21 10:41 Pulse 88 12/03/21 10:41 Resp 16 12/03/21 10:41 BP 169/94 H 12/03/21 10:41 Pulse Ox 98 12/03/21 10:41 Intake & Output 12/02/21 12/03/21 12/03/21 18:59 06:59 18:59 Other: Weight 106.3 kg Weight in Grams 201433 Weight 106.3 kg BMI result Body Mass Index 33.6 - Constitutional Present: no acute distress, average body habitus - Routine HEENT Exam Head: Present: normal inspection - Routine Respiratory Exam Present: CTAB. Absent: accessory muscle use - Routine Cardiovascular Exam Cardiovascular: Present: S1, S2 - Routine Abdominal Exam Present: normal bowel sounds. Absent: mass - Routine Extremities Exam Absent: calf tenderness, pedal edema - Routine Skin Exam Present: intact. Absent: cyanosis Data - Labs CBC & Chem 7: 12/03/21 11:01 12/03/21 11:01 Assessment and Plan Patient Active problem list reviewed?: Yes (1) Prostate cancer Status: Chronic Assessment and plan: 1. This is a pleasant 66-year-old male with metastatic prostate cancer, adenocarcinoma widely metastatic to bone. Initial PSA of 501. He was started on combined androgen blockade, Casodex and Lupron. He was taken of the Casodex a few weeks later and was started on abiraterone 1000 mg daily along with prednisone 5 mg b.i.d.. He has been on this since April 2021. The PSA has come down to 4.17. His bone scan showed innumerable metastatic lesions throughout the axial skeleton, femurs, humeri and left proximal tibia. PSA level is down to 3.86 in August. Blood work today shows rise in PSA to 24.04. Serum testosterone level is pending. He is on abiraterone with prednisone. Lupron every 6 months. Obtain pathology report from [facility] to see if he has other molecular markers/next generation sequencing and BRCA mutation testing performed. Repeat PSA in a few weeks. If there is continued elevation, treatment will be switched, docetaxel will be considered. Follow-up in 3 weeks. - Time Spent With Patient Time Spent with Patient (in minutes): 15
[2021-12-03 11:22] LABS: MANUAL DIFF FLAG NO
[2021-12-03 11:27] LABS: Basophils Percent Auto 0.3 % (0-2); Eosinophils Absolute Auto 0.1 X10*3/uL (0.0-0.4); Eosinophils Percent Auto 1.1 % (0-4); Hematocrit 33.5 % (42.0-52.0); Imm Gran Abs Auto 0.02 X10*3/uL (0.00-0.03); Imm Gran Pct Auto 0.3 % (0.0-0.4); Lymphocytes Absolute Auto 1.5 X10*3/uL (1.2-4.9); Lymphocytes Percent Auto 23.6 % (20-40); Mean Corpuscular HGB Conc 32.8 g/dl (31.0-36.0); Mean Corpuscular Hemoglobin 27.5 pg (27.0-33.0); Mean Corpuscular Volume 83.8 fL (80.0-98.0); Mean Platelet Volume 9.7 fL (9.4-12.4); Monocytes Absolute Auto 0.5 X10*3/uL (0.1-1.2); Monocytes Percent Auto 7.6 % (2-11); Neutrophils Absolute Auto 4.3 x10*3/uL (2.0-8.3); Neutrophils Percent Auto 67.1 % (45-73); Platelet Count 262 X10*3/uL (160-400); Red Cell Distribution Width 13.1 % (11.0-16.0); White Blood Count 6.5 X10*3/uL (4.8-10.8)
[2021-12-03 12:13] LABS: Prostate Specific Antigen 24.04 ng/mL (<0.05-4.0)
[2021-12-03 12:24] LABS: Alanine Aminotransferase 12 U/L (0-40); Albumin Level 3.8 g/dL (3.5-5.0); Alkaline Phosphatase 268 U/L (39-117); Anion Gap 12 (12-20); Aspartate Amino Transferase 16 U/L (5-37); Bilirubin Total 0.6 mg/dL (0.0-1.0); Blood Urea Nitrogen 11 mg/dL (9-16); Calcium 10.1 mg/dL (8.4-10.2); Carbon Dioxide 29 mmol/L (22-29); Chloride 105 mmol/L (96-108); Creatinine Clr Calc Pharmacy 93.9; Estimated Glomerular Filt Rate > 60; Glucose Random 316 mg/dL (60-115); Potassium 3.3 mmol/L (3.3-5.1); Sodium 143 mmol/L (135-145); Total Protein 6.3 g/dL (6.5-8.0)
--- NOTE | 2021-12-03 16:17 | MHC.HEMONCMA ---
Patient came in for a follow up today, states that he is doing well. Clinical summary was reviewed and updated. Patient had labs and will return in 2 months for a follow up.
[2021-12-09 12:07] LABS: Testosterone, Total <1 ng/dL (250-1100)
[2022-01-02 08:03] VITALS: BP 185/81; PULSE 79; TEMP 36.1; O2SAT 99; BMI 33.5
--- NOTE | 2022-01-02 08:12 | P.PNHO_ITS ---
Medical Summary - Medical Summary Date of Service: 01/02/22 Chief complaint: Right knee and leg pain Medical Summary: Diagnosis: Metastatic prostate cancer March 2021 Prostate biopsy performed 06/06/2021 at [facility] revealed adenocarcinoma, Bryan grade 9-10 ( 5+4;5+5) in all cores. Presented with urinary obstruction and diffuse abdominal and back pain in March 2021. CT abdomen/pelvis with contrast performed 04/14/2021 at [facility] revealed markedly distended bladder. Diffuse sclerotic bone disease concerning for metastatic disease, moderate bilateral hydroureteronephrosis secondary to bladder distention. Small bilateral pleural effusions. Bone scan performed 04/02/2021 revealed diffuse sclerotic bone lesions throughout the axial skeleton and proximal long bones. He was started on leuprolide 45 mg subQ every 6 months and bicalutamide 50 mg p.o. daily. 04/27/2021 he was started on abiraterone 1000 mg p.o. daily and prednisone [address] korey Hines. Interval History Interval history: This was a scheduled follow-up for patient. He states that he is taking abiraterone and prednisone daily. He no longer is taking bicalutamide. He has no complaints other than mild fatigue. PENDING SALE TO [facility] Medical History: Medical History (Last Reviewed 12/03/21 @ 10:45 by Leonor Dooley) Anxiety BPH (benign prostatic hyperplasia) Chronic post-traumatic stress disorder (PTSD) CTS (carpal tunnel syndrome) Depression, major Diabetes mellitus with hyperglycemia, with long-term current use of insulin Diabetic neuropathy Dyslipidemia Erectile dysfunction Essential hypertension History of nephrolithiasis History of nuclear stress test 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 [facility] prescription benzodiazepine use Obesity OCD (obsessive compulsive disorder) PTSD (post-traumatic stress disorder) Family History: Family History (Last Reviewed 12/03/21 @ 10:45 by Leonor Dooley) Paternal Uncle Cancer Maternal Uncle Prostate cancer Maternal Uncle Prostate cancer Family/Other Prostate cancer Maternal Grandmother Cancer of kidney Sister Skin cancer Sister Stroke Father Heart attack Surgical History: Surgical History (Last Reviewed 12/03/21 @ 10:45 by Leonor Dooley) No pertinent past surgical history Social History: Social History (Last Updated 12/03/21 @ 10:46 by Leonor Dooley) Living Situation History: Household Members: Significant Other Housing: House Are you a primary disabilities caregiver to a significant other at home: No Do you presently have visiting nurse or other home services: No Alcohol History Details: 1. How often do you have a drink containing alcohol?: a. 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 Home Medications and Allergies Home Medications Medication Instructions Recorded Confirmed Type cholecalciferol (vitamin D3) 50 50 mcg PO DAILY 07/31/21 12/03/21 History mcg (2,000 unit) capsule (Vitamin D3) finasteride 5 mg tablet 5 mg PO DAILY 07/31/21 12/03/21 History gabapentin 600 mg tablet 600 mg PO DAILY 07/31/21 12/03/21 History glyburide 5 mg tablet 5 mg PO BID 07/31/21 12/03/21 History insulin needles (disposable) 31 07/31/21 12/03/21 History leuprolide (6 month) 45 mg (6 45 mg SUBCUT [id number] 07/31/21 12/03/21 History month) subcutaneous syringe (Fingerprintd) qnpusnzp-tly-innjy acid 0.4 1 tab PO DAILY 07/31/21 12/03/21 History mg-lycopene 300 mcg-lutein 250 mcg tablet (Centrum Silver) bicalutamide 50 mg tablet (Casodex) 50 mg PO DAILY 10/30/21 12/03/21 History abiraterone 250 mg tablet (Zytiga) 4 tab PO DAILY 11/13/21 12/03/21 History Allergies Allergy/AdvReac Type Severity Reaction Status Date / Time metformin AdvReac Intermediate vomiting Verified 12/03/21 10:46 Exam Vital signs: Vital Signs Temp 97 F 01/02/22 08:03 Pulse 79 01/02/22 08:03 Resp 16 12/03/21 10:41 BP 185/81 H 01/02/22 08:03 Pulse Ox 99 01/02/22 08:03 Intake & Output 01/01/22 01/02/22 01/02/22 18:59 06:59 18:59 Other: Weight 106 kg [place] Weight in Grams [id number] Weight 106 kg BMI result Body Mass Index 33.5 - Constitutional Present: no acute distress, average body habitus - Routine HEENT Exam Head: Present: normal inspection - Routine Respiratory Exam Present: CTAB. Absent: accessory muscle use - Routine Cardiovascular Exam Cardiovascular: Present: S1, S2 - Routine Abdominal Exam Present: normal bowel sounds. Absent: mass - Routine Extremities Exam Absent: calf tenderness, pedal edema - Routine Skin Exam Present: intact. Absent: cyanosis Data - Labs CBC & Chem 7: 12/03/21 11:01 12/03/21 11:01 Assessment and Plan Patient Active problem list reviewed?: Yes (1) Prostate cancer Status: Chronic Assessment and plan: 1. This is a pleasant 66-year-old male with metastatic prostate cancer, adenocarcinoma widely metastatic to bone. Initial PSA of 501. He was started on combined androgen blockade, Casodex and Lupron. He was taken of the Casodex a few weeks later and was started on abiraterone 1000 mg daily along with predn isone 5 mg b.i.d.. He has been on this since April 2021. His bone scan showed innumerable metastatic lesions throughout the axial skeleton, femurs, humeri and left proximal tibia. He is on abiraterone with prednisone. Lupron every 6 months. Bone scan performed 09/2021 at [facility] revealed metastatic disease involving bilateral distal femur with focal abnormality in posterior iliac crest, distal right femur and proximal left fibula. Repeat PSA today is pending. He appears to become more symptomatic from his bone metastasis. Serum testosterone level is below 1. 2. Symptomatic bone metastasis. He is complaining of right knee pain. CT of right hip and femur have been ordered. I will be starting him on denosumab 120 mg subcu once a month. I have reviewed pathology from [facility], he has prostatic adenocarcinoma Bryan score 9. Germline genetic testing will be performed on his next visit. If there is continued elevation of PSA, treatment will be switched, docetaxel will be considered. Follow-up in 3 weeks. - Time Spent With Patient Time Spent with Patient (in minutes): 20
--- NOTE | 2022-01-02 08:36 | MHC.HEMONC ---
Request for Denosumab 120mg s.c. monthly for bone mets left for Kathleen aleman PA.
--- NOTE | 2022-01-02 09:46 | MHC.HEMONC ---
Here for f/u with Dr Plaza. Pt looking and feeling well, some discomfort in right leg and left arm. Medications reviewed. Getting lupron every 6 months at urology office.
[2022-01-02 10:03] LABS: Alanine Aminotransferase 14 U/L (0-40); Albumin Level 3.7 g/dL (3.5-5.0); Anion Gap 13 (12-20); Aspartate Amino Transferase 14 U/L (5-37); Bilirubin Total 0.5 mg/dL (0.0-1.0); Blood Urea Nitrogen 15 mg/dL (9-16); Carbon Dioxide 27 mmol/L (22-29); Chloride 107 mmol/L (96-108); Creatinine Clr Calc Pharmacy 108.3; Estimated Glomerular Filt Rate > 60; Glucose Random 119 mg/dL (60-115); Potassium 3.5 mmol/L (3.3-5.1); Sodium 143 mmol/L (135-145); Total Protein 6.4 g/dL (6.5-8.0)
[2022-01-02 10:12] LABS: Alkaline Phosphatase 645 U/L (39-117)
[2022-01-02 10:25] LABS: Prostate Specific Antigen 29.44 ng/mL (<0.05-4.0)
--- NOTE | 2022-01-02 14:07 | HO.HEMONCPA ---
PA FOR DENOSUMAB 120mg MONTHLY APPROVED. AUTH #[id number]. DOS-01/02/22 to 01/01/23. DOCUMENT SCANNED IN THE CHART
--- NOTE | 2022-01-03 15:08 | MHC.HEMONC ---
Patient present for Xgeva injection, Ca+=10.0, medication administered in [place]IL[place], patient tolerated it well. Next injection scheduled for 04/11/22 and follow up with Dr Plaza on 02/04/22. Will clarify Xgeva order with Dr Plaza on 01/04/22. Patient departed the unit.
[2022-02-06 10:18] VITALS: BP 179/78; PULSE 84; RESP 14; TEMP 36.7; O2SAT 98; BMI 35.1
--- NOTE | 2022-02-06 10:30 | PM.HEMONCPN ---
Medical Summary - Medical Summary Date of Service: 02/06/22 Chief complaint: follow-up Medical Summary: Diagnosis: Metastatic prostate cancer March 2021 Prostate biopsy performed 06/06/2021 at [facility] revealed adenocarcinoma, [place] grade 9-10 ( 5+4;5+5) in all cores. Presented with urinary obstruction and diffuse abdominal and back pain in March 2021. CT abdomen/pelvis with contrast performed 04/14/2021 at [facility] revealed markedly distended bladder. Diffuse sclerotic bone disease concerning for metastatic disease, moderate bilateral hydroureteronephrosis secondary to bladder distention. Small bilateral pleural effusions. Bone scan performed 04/02/2021 revealed diffuse sclerotic bone lesions throughout the axial skeleton and proximal long bones. He was started on leuprolide 45 mg subQ every 6 months and bicalutamide 50 mg p.o. daily. 04/27/2021 he was started on abiraterone 1000 mg p.o. daily and prednisone [address] korey Hines. Interval History Interval history: This was a scheduled follow-up for patient. He states he is feeling better, pain in his legs/hips and thighs have improved since he started denosumab a month ago. He states that he is taking abiraterone and prednisone daily. He denies exertional chest pain, shortness of breath, nausea, abdominal discomfort or change in bowel habits. Review of Systems - Constitutional Reports as per HPI, Reports no additional constitutional complaints - Cardiovascular Reports no additional cardiovascular complaints - Respiratory Reports no additional respiratory complaints [facility], [facility] Medical History: Medical History (Last Reviewed 02/06/22 @ 10:23 by Meli Montalvo CMA) Anxiety BPH (benign prostatic hyperplasia) Chronic post-traumatic stress disorder (PTSD) CTS (carpal tunnel syndrome) Depression, major Diabetes mellitus with hyperglycemia, with long-term current use of insulin Diabetic neuropathy Dyslipidemia Erectile dysfunction Essential hypertension History of nephrolithiasis History of nuclear stress test 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 custodial prescription benzodiazepine use Obesity OCD (obsessive compulsive disorder) PTSD (post-traumatic stress disorder) Family History: Family History (Last Reviewed 02/06/22 @ 10:23 by Meli Montalvo CMA) Paternal Uncle Cancer Maternal Uncle Prostate cancer Maternal Uncle Prostate cancer Family/Other Prostate cancer Maternal Grandmother Cancer of kidney Sister Skin cancer Sister Stroke Father Heart attack Surgical History: Surgical History (Last Reviewed 02/06/22 @ 10:23 by Meli Montalvo CMA) No pertinent past surgical history Social History: Social History (Last Updated 02/06/22 @ 10:24 by Meli Montalvo CMA) Living Situation History: Household Members: Significant Other Housing: House Are you a primary foster care therapist to a significant other at home: No Do you presently have visiting nurse or other home services: No Alcohol History Details: 1. How often do you have a drink containing alcohol?: a. Never Tobacco History: Patient Tobacco Use Status: Never used Tobacco e-Cigarette/Vaping Use: Never Used Substance Use History: Use of substances other than those prescribed or required for medical reasons: No Domestic Abuse History: Have you been hit, kicked, punched, or otherwise hurt by someone within the past year? 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 Oncology Screenings - ECOG Performance Status ECOG Performance Status: 1 Home Medications and Allergies Home Medications Medication Instructions Recorded Confirmed Type cholecalciferol (vitamin D3) 50 50 mcg PO DAILY 07/31/21 02/06/22 History mcg (2,000 unit) capsule (Vitamin D3) finasteride 5 mg tablet 5 mg PO DAILY 07/31/21 02/06/22 History insulin needles (disposable) 31 07/31/21 02/06/22 History leuprolide (6 month) 45 mg (6 45 mg SUBCUT [id number] 07/31/21 02/06/22 History month) subcutaneous syringe (Eligard) cumojfts-qsu-erjfl acid 0.4 1 tab PO DAILY 07/31/21 02/06/22 History mg-lycopene 300 mcg-lutein 250 mcg tablet (Centrum Silver) abiraterone 250 mg tablet (Zytiga) 4 tab PO DAILY 11/13/21 02/06/22 History insulin glargine-yfgn 100 unit/mL 40 unit SUBCUT DAILY ml 01/11/22 02/06/22 History (3 mL) subcutaneous pen (Semglee (insulin glargine-yfgn) Pen) furosemide 20 mg tablet 1 tab PO BID 02/06/22 02/06/22 History Allergies Allergy/AdvReac Type Severity Reaction Status Date / Time metformin AdvReac Intermediate vomiting Verified 02/06/22 10:25 Exam Vital signs: Vital Signs Temp 98.1 F 02/06/22 10:18 Pulse 84 02/06/22 10:18 Resp 14 02/06/22 10:18 BP 179/78 H 02/06/22 10:18 Pulse Ox 98 02/06/22 10:18 Intake & Output 02/05/22 02/06/22 02/06/22 18:59 06:59 18:59 Other: Weight 111 kg Weight in Grams [id number] Weight 111 kg BMI result Body Mass Index 35.1 - Constitutional Present: no acute distress, average body habitus - Routine HEENT Exam Head: Present: normal inspection - Routine Respiratory Exam Present: CTAB. Absent: accessory muscle use - Routine Cardiovascular Exam Cardiovascular: Present: S1, S2 - Routine Abdominal Exam Present: normal bowel sounds. Absent: mass - Routine Extremities Exam Absent: calf tenderness, pedal edema - Routine Skin Exam Present: intact. Absent: cyanosis Data - Labs CBC & Chem 7: 12/03/21 11:01 02/06/22 10:20 Assessment and Plan Patient Active problem list reviewed?: Yes (1) Prostate cancer Status: Chronic Assessment and plan: 1. This is a pleasant 66-year-old male with metastatic prostate cancer, adenocarcinoma widely metastatic to bone. Initial PSA of 501. He was started on combined androgen blockade, Casodex and Lupron. He was taken of the Casodex a few weeks later and was started on abiraterone 1000 mg daily along with prednisone 5 mg b.i.d.. He has been on this since April 2021. His bone scan showed innumerable metastatic lesions throughout the axial skeleton, femurs, humeri and left proximal tibia. He is on abiraterone with prednisone. Lupron every 6 months. Bone scan [place] [facility] [place] metastatic disease involving bilateral distal femur with focal abnormality in posterior iliac crest, distal right femur and proximal left fibula. 2. Symptomatic bone metastasis. He is complaining of right knee pain. CT of right hip and femur have been ordered. I will be starting him on denosumab 120 mg subcu once a month. I have reviewed pathology from [facility], he has prostatic adenocarcinoma Bryan score 9. His last PSA was around 29 NG/mL. PET-CT has been ordered. If there is radiographic progression of disease, treatment will be switched, docetaxel will be considered. Submit genetic testing. Follow-up in 3 weeks. - Time Spent With Patient Time Spent with Patient (in minutes): 15
[2022-02-06 10:44] LABS: Alanine Aminotransferase 12 U/L (0-40); Albumin Level 3.7 g/dL (3.5-5.0); Alkaline Phosphatase 405 U/L (39-117); Anion Gap 11 (12-20); Aspartate Amino Transferase 13 U/L (5-37); Bilirubin Total 0.6 mg/dL (0.0-1.0); Blood Urea Nitrogen 10 mg/dL (9-16); Carbon Dioxide 23 mmol/L (22-29); Chloride 111 mmol/L (96-108); Creatinine Clr Calc Pharmacy 117.8; Estimated Glomerular Filt Rate > 60; Glucose Random 175 mg/dL (60-115); Potassium 4.1 mmol/L (3.3-5.1); Sodium 141 mmol/L (135-145); Total Protein 6.4 g/dL (6.5-8.0)
[2022-02-06 11:42] LABS: Prostate Specific Antigen 17.45 ng/mL (<0.05-4.0)
--- NOTE | 2022-02-06 12:57 | MHC.HEMONC ---
Pt was here for monthly Denosumab/Xgeva and Hem f/u appt, labs drawn/reviewed, Calcium resulted at 9.0, Nurse admin Denosumab 120mg SC in pt's LUE, which he tolerated well. Nurse confirmed w/ Dr. Plaza that pt should continue w/ Qmonthly Denosumab for now. Nurse booked pt's next Denosumab injection for 03/06/22 prior to departure.
--- NOTE | 2022-02-06 15:34 | HO.HEMONCPA ---
PA IS REQUIRED FOR PET CT . I [facility]ICAL INFORMATION [facility] , AWAITING DECISION . REP; CELSO Michel CASE#[id number]
--- NOTE | 2022-02-06 15:54 | MHC.HEMONCMA ---
Pt was in for follow up. Clinical summary reviewed and updated, VSS. Pt to return in 1 month.
--- NOTE | 2022-02-12 08:33 | HO.HEMONCPA ---
PA FOR PET CT WAS DENIED . I WILL SPEAK TO THE DOCTOR TO SEE HOW SHE WOULD LIKE TO PROCEED .
--- NOTE | 2022-03-05 08:39 | HO.HEMONCPA ---
PA FOR CT ABDOMEN AND PELIVS ; WITH CONTRAST AND CT CHEST;WITH CONTRAST HAS BEEN APPROVED . AUTH#[id number] DOS-03/04/22 TO 08/31/22
[2022-03-06 10:35] LABS: Hematocrit 36.4 % (42.0-52.0); Hemoglobin 11.7 g/dl (14.0-18.0); Mean Corpuscular HGB Conc 32.1 g/dl (31.0-36.0); Mean Corpuscular Hemoglobin 27.9 pg (27.0-33.0); Mean Corpuscular Volume 86.7 fL (80.0-98.0); Mean Platelet Volume 9.9 fL (9.4-12.4); Platelet Count 244 X10*3/uL (160-400)
[2022-03-06 10:41] VITALS: BP 143/66; PULSE 82; RESP 14; TEMP 36.6; O2SAT 99; BMI 35.7
[2022-03-06 10:48] LABS: Alanine Aminotransferase 17 U/L (0-40); Albumin Level 3.8 g/dL (3.5-5.0); Alkaline Phosphatase 304 U/L (39-117); Anion Gap 11 (12-20); Aspartate Amino Transferase 14 U/L (5-37); Bilirubin Total 0.4 mg/dL (0.0-1.0); Blood Urea Nitrogen 14 mg/dL (9-16); Carbon Dioxide 24 mmol/L (22-29); Chloride 110 mmol/L (96-108); Creatinine Clr Calc Pharmacy 110.5; Estimated Glomerular Filt Rate > 60; Glucose Random 162 mg/dL (60-115); Sodium 141 mmol/L (135-145); Total Protein 6.4 g/dL (6.5-8.0)
--- NOTE | 2022-03-06 10:52 | P.PNHO_ITS ---
Medical Summary - Medical Summary Date of Service: 03/06/22 Chief complaint: Follow-up Medical Summary: Diagnosis: Metastatic prostate cancer March 2021 Prostate biopsy performed 06/06/2021 at [facility] revealed adenocarcinoma, [place] grade 9-10 ( 5+4;5+5) in all cores. Presented with urinary obstruction and diffuse abdominal and back pain in March 2021. CT abdomen/pelvis with contrast performed 04/14/2021 at [facility] revealed markedly distended bladder. Diffuse sclerotic bone disease concerning for metastatic disease, moderate bilateral hydroureteronephrosis secondary to bladder distention. Small bilateral pleural effusions. Bone scan performed 04/02/2021 revealed diffuse sclerotic bone lesions throughout the axial skeleton and proximal long bones. He was started on leuprolide 45 mg subQ every 6 months and bicalutamide 50 mg p.o. daily. 04/27/2021 he was started on abiraterone 1000 mg p.o. daily and prednisone [address] korey Hines. Interval History Interval history: This was a scheduled follow-up for patient. He is doing well and has no complaints today. He reports no side effects to denosumab. He is compliant with abiraterone and prednisone daily. He denies exertional chest pain, shortness of breath, nausea, abdominal discomfort or change in bowel habits. Review of Systems - Constitutional Reports as per HPI, Reports no additional constitutional complaints - Cardiovascular Reports no additional cardiovascular complaints - Respiratory Reports no additional respiratory complaints - Gastrointestinal Reports no additional gastrointestinal complaints [facility] Medical History: Medical History (Last Reviewed 03/06/22 @ 10:45 by Meli Montalvo CMA) Anxiety BPH (benign prostatic hyperplasia) Chronic post-traumatic stress disorder (PTSD) CTS (carpal tunnel syndrome) Depression, major Diabetes mellitus with hyperglycemia, with long-term current use of insulin Diabetic neuropathy Dyslipidemia Erectile dysfunction Essential hypertension History of nephrolithiasis History of nuclear stress test 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 shelter prescription benzodiazepine use Obesity OCD (obsessive compulsive disorder) PTSD (post-traumatic stress disorder) Family History: Family History (Last Reviewed 03/06/22 @ 10:45 by Meli Montalvo CMA) Paternal Uncle Cancer Maternal Uncle Prostate cancer Maternal Uncle Prostate cancer Family/Other Prostate cancer Maternal Grandmother Cancer of kidney Sister Skin cancer Sister Stroke Father Heart attack Surgical History: Surgical History (Last Reviewed 03/06/22 @ 10:45 by Meli Montalvo CMA) No pertinent past surgical history Social History: Social History (Last Reviewed 03/06/22 @ 10:46 by Meli Montalvo CMA) Living Situation History: Household Members: Significant Other Housing: House Are you a primary geriatric personal care aide to a significant other at home: No Do you presently have visiting nurse or other home services: No Alcohol History Details: 1. How often do you have a drink containing alcohol?: a. Never Tobacco History: Patient Tobacco Use Status: Never used Tobacco e-Cigarette/Vaping Use: Never Used Substance Use History: Use of substances other than those prescribed or required for medical reasons : No Domestic Abuse History: Have you been hit, kicked, punched, or otherwise hurt by someone within the past year? 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 Oncology Screenings - ECOG Performance Status ECOG Performance Status: 1 Home Medications and Allergies Home Medications Medication Instructions Recorded Confirmed Type cholecalciferol (vitamin D3) 50 50 mcg PO DAILY 07/31/21 03/06/22 History mcg (2,000 unit) capsule (Vitamin D3) finasteride 5 mg tablet 5 mg PO DAILY 07/31/21 03/06/22 History insulin needles (disposable) 31 07/31/21 03/06/22 History leuprolide (6 month) 45 mg (6 45 mg SUBCUT [id number] 07/31/21 03/06/22 History month) subcutaneous syringe (Eligard) fkmbmyoh-syx-cnede acid 0.4 1 tab PO DAILY 07/31/21 03/06/22 History mg-lycopene 300 mcg-lutein 250 mcg tablet (Centrum Silver) insulin glargine-yfgn 100 unit/mL 40 unit SUBCUT DAILY ml 01/11/22 03/06/22 History (3 mL) subcutaneous pen (Semglee (insulin glargine-yfgn) Pen) Allergies Allergy/AdvReac Type Severity Reaction Status Date / Time metformin AdvReac Intermediate vomiting Verified 03/06/22 10:46 Exam Vital signs: Vital Signs Temp 98 F 03/06/22 10:41 Pulse 82 03/06/22 10:41 Resp 14 03/06/22 10:41 BP 143/66 H 03/06/22 10:41 Pulse Ox 99 03/06/22 10:41 Intake & Output 03/05/22 03/06/22 03/06/22 18:59 06:59 18:59 Other: Weight 113 kg Weight in Grams [id number] Weight 113 kg BMI result Body Mass Index 35.7 - Constitutional Present: no acute distress, average body habitus - Routine HEENT Exam Head: Present: normal inspection - Routine Respiratory Exam Present: CTAB. Absent: accessory muscle use - Routine Cardiovascular Exam Cardiovascular: Present: S1, S2 - Routine Abdominal Exam Present: normal bowel sounds. Absent: mass - Routine Extremities Exam Absent: calf tenderness, pedal edema - Routine Skin Exam Present: intact. Absent: cyanosis Data - Labs CBC & Chem 7: 03/06/22 10:21 03/06/22 10:21 Assessment and Plan Patient Active problem list reviewed?: Yes (1) Prostate cancer Status: Chronic Assessment and plan: 1. This is a pleasant 66-year-old male with metastatic prostate cancer, adenocarcinoma widely metastatic to bone. Initial PSA of 501. He was started on combined androgen blockade, Casodex and Lupron. He was taken of the Casodex a few weeks later and was started on abiraterone 1000 mg daily along with pr ednisone 5 mg b.i.d.. He has been on this since April 2021. His bone scan showed innumerable metastatic lesions throughout the axial skeleton, femurs, humeri and left proximal tibia. He is on abiraterone with prednisone. Lupron every 6 months. Bone scan performed 09/2021 at [facility] [place] revealed metastatic disease involving bilateral distal femur with focal abnormality in posterior iliac crest, distal right femur and proximal left fibula. 2. Symptomatic bone metastasis. He is complaining of right knee pain. CT of right hip and femur have been ordered. I will be starting him on denosumab 120 mg subcu once a month. I have reviewed pathology from [facility], he has prostatic a denocarcinoma [place] score 9. His last PSA was around 17 NG/mL. PET-CT was denied by insurance carrier. He has CT chest/abdomen pelvis scheduled for 03/07/2022. If there is radiographic progression of disease, treatment will be switched, docetaxel will be considered. Submit genetic testing. Follow-up in 3 weeks. - Time Spent With Patient Time Spent with Patient (in minutes): 15
[2022-03-06 11:14] LABS: Prostate Specific Antigen 17.96 ng/mL (<0.05-4.0)
--- NOTE | 2022-03-06 11:40 | MHC.HEMONC ---
Pt was here for Onc f/u as well as monthly Xgeva/Denosumab injection. Pt's CMP resulted w/ Calcium of 9.0, which nurse reported to Dr. Plaza as WNL. Nurse admin Denosumab 120 mg SC to pt's LUE, which was well tolerated. Nurse booked pt's next Denosumab injection for 04/03/22.
--- NOTE | 2022-03-06 11:54 | MHC.HEMONCMA ---
Pt was in for follow up. Clinical summary reviewed and updated, VSS. Labs were drawn. Pt to return in 1 month.
--- NOTE | 2022-04-03 10:14 | PM.HEMONCPN ---
Medical Summary - Medical Summary Date of Service: 04/03/22 Chief complaint: Follow-up Medical Summary: Diagnosis: Metastatic prostate cancer March 2021 Prostate biopsy performed 06/06/2021 at [facility] revealed adenocarcinoma, [place] grade 9-10 ( 5+4;5+5) in all cores. Presented with urinary obstruction and diffuse abdominal and back pain in March 2021. CT abdomen/pelvis with contrast performed 04/14/2021 at [facility] revealed markedly distended bladder. Diffuse sclerotic bone disease concerning for metastatic disease, moderate bilateral hydroureteronephrosis secondary to bladder distention. Small bilateral pleural effusions. Bone scan performed 04/02/2021 revealed diffuse sclerotic bone lesions throughout the axial skeleton and proximal long bones. He was started on leuprolide 45 mg subQ every 6 months and bicalutamide 50 mg p.o. daily. 04/27/2021 he was started on abiraterone 1000 mg p.o. daily and prednisone [address] korey Hines. Interval History Interval history: This was a scheduled follow-up for patient. He is doing well and has no complaints today. He is compliant with abiraterone and prednisone daily. He denies exertional chest pain, shortness of breath, nausea, abdominal discomfort or change in bowel habits. He wants to know results of imaging study. [facility] Medical History: Medical History (Last Reviewed 04/03/22 @ 10:26 by Meli Montalvo CMA) Anxiety BPH (benign prostatic hyperplasia) Chronic post-traumatic stress disorder (PTSD) CTS (carpal tunnel syndrome) Depression, major Diabetes mellitus with hyperglycemia, with long-term current use of insulin Diabetic neuropathy Dyslipidemia Erectile dysfunction Essential hypertension History of nephrolithiasis History of nuclear stress test 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 watermaster prescription benzodiazepine use Obesity OCD (obsessive compulsive disorder) PTSD (post-traumatic stress disorder) Family History: Family History (Last Reviewed 04/03/22 @ 10:26 by Meli Montalvo CMA) Paternal Uncle Cancer Maternal Uncle Prostate cancer Maternal Uncle Prostate cancer Family/Other Prostate cancer Maternal Grandmother Cancer of kidney Sister Skin cancer Sister Stroke Father Heart attack Surgical History: Surgical History (Last Reviewed 04/03/22 @ 10:26 by Meli Montalvo CMA) No pertinent past surgical history Social History: Social History (Last Reviewed 06/08/22 @ 10:27 by Meli Montalvo [facility] Living Situation History: Household Members: Significant Other Housing: House Are you a primary customer care manager to a significant other at home: No Do you presently have visiting nurse or other home services: No Alcohol History Details: 1. How often do you have a drink containing alcohol?: a. Never Tobacco History: Patient Tobacco Use Status: Never used Tobacco e-Cigarette/Vaping Use: Never Used Substance Use History: Use of substances other than those prescribed or required for medical reasons: No Domestic Abuse History: Have you been hit, kicked, punched, or otherwise hurt by someone within the past year? 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 Home Medications and Allergies Home Medications Medication Instructions Recorded Confirmed Type cholecalciferol (vitamin D3) 50 50 mcg PO DAILY 07/31/21 04/03/22 History mcg (2,000 unit) capsule (Vitamin D3) insulin needles (disposable) 31 07/31/21 04/03/22 History leuprolide acetate (6 month) 45 mg 45 mg subcut [id number] 07/31/21 04/03/22 History (6 month) subcutaneous syringe (Eligard) zaqtlupj-dof-sqhbg acid 0.4 1 tab PO DAILY 07/31/21 04/03/22 History mg-lycopene 300 mcg-lutein 250 mcg tablet (Centrum Silver) insulin glargine-yfgn 100 unit/mL 40 unit subcut DAILY 01/11/22 04/03/22 History (3 mL) subcutaneous pen (Semglee (insulin glargine-yfgn) Pen) denosumab 120 mg/1.7 mL (70 mg/mL) 120 mg subcut QMONTH 04/03/22 04/03/22 History subcutaneous solution (Xgeva) Allergies Allergy/AdvReac Type Severity Reaction Status Date / Time metformin AdvReac Intermediate vomiting Verified 04/03/22 10:27 Exam Vital signs: Vital Signs Temp 98 F 05/11/22 10:41 Pulse 82 03/06/22 10:41 Resp 14 03/06/22 10:41 BP 143/66 H 03/06/22 10:41 Pulse Ox 99 03/06/22 10:41 O2 Del Method 03/06/22 10:41 Weight 113 kg BMI result Body Mass Index 35.7 - Constitutional Present: no acute distress, average body habitus - Routine HEENT Exam Head: Present: normal inspection - Routine Respiratory Exam Present: CTAB. Absent: accessory muscle use - Routine Cardiovascular Exam Cardiovascular: Present: S1, S2 - Routine Abdominal Exam Present: normal bowel sounds. Absent: mass - Routine Extremities Exam Absent: calf tenderness, pedal edema - Routine Skin Exam Present: intact. Absent: cyanosis Data - Labs CBC & Chem 7: 03/06/22 10:21 04/03/22 10:23 Assessment and Plan Patient Active problem list reviewed?: Yes (1) Prostate cancer Status: Chronic Assessment and plan: 1. This is a pleasant 66-year-old male with de Devon metastatic prostate cancer, adenocarcinoma widely metastatic to bone. Initial PSA of 501. He was started on combined androgen blockade, Casodex and Lupron. He was taken of the Casodex a few weeks later and was started on abiraterone 1000 mg daily along with prednisone 5 mg b.i.d.. He has been on this since April 2021. His bone scan showed innumerable metastatic lesions throughout the axial skeleton, femurs, humeri and left proximal tibia. He is on abiraterone with prednisone. Lupron every 6 months. Bone scan performed 09/2021 at [facility] revealed metastatic disease involving bilateral distal femur with focal abnormality in posterior iliac crest, distal right femur and proximal left fibula. PSA has persistently been elevated. CT chest/abdomen and pelvis with contrast in February 2022 shows no soft tissue involvement. Repeat bone scan in a few months. He is tolerating treatment well.For his symptomatic bone metastasis, he has been started on denosumab 120 mg subcu monthly. If there is radiographic progression of disease, treatment will be switched, docetaxel will be considered. Submit genetic testing. Follow-up in 3 weeks. - Time Spent With Patient Time Spent with Patient (in minutes): 15
[2022-04-03 10:19] VITALS: BP 143/64; PULSE 85; RESP 16; TEMP 36.4; O2SAT 100; BMI 36.4
[2022-04-03 10:51] LABS: Alanine Aminotransferase 13 U/L (0-40); Albumin Level 3.9 g/dL (3.5-5.0); Alkaline Phosphatase 327 U/L (39-117); Anion Gap 11 (12-20); Aspartate Amino Transferase 12 U/L (5-37); Bilirubin Total 0.4 mg/dL (0.0-1.0); Blood Urea Nitrogen 15 mg/dL (9-16); Calcium 8.6 mg/dL (8.4-10.2); Carbon Dioxide 23 mmol/L (22-29); Chloride 109 mmol/L (96-108); Creatinine Clr Calc Pharmacy 105.4; Estimated Glomerular Filt Rate > 60; Glucose Random 212 mg/dL (60-115); Potassium 3.9 mmol/L (3.3-5.1); Sodium 139 mmol/L (135-145); Total Protein 6.4 g/dL (6.5-8.0)
[2022-04-03 11:20] LABS: Prostate Specific Antigen 19.04 ng/mL (<0.05-4.0)
--- NOTE | 2022-04-03 11:56 | MHC.HEMONCMA ---
Pt was in for follow up. Clinical summary reviewed and updated, VSS. Labs were drawn. Pt to return in 1 month.
--- NOTE | 2022-04-03 13:03 | HE.PHANOTE ---
SPOKE TO ADELE RN THIS AFTERNOON. PATIENT HAS BEEN GETTING MONTHLY , XGEVA PUT IN MANUALLY BY MD; TREATMENT PLAN THATWAS ORDERED WAS [id number], PATIENT SHOULD BE GETTING Q28D. [facility] STOPPED OLD PLAN AND ENTERED Q28D PLAN TO START ON NEXT DUE DATE (05/01/22)
--- NOTE | 2022-04-03 13:19 | MHC.HEMONC ---
Pt's labs were drawn/reviewed, Ca resulted at 8.6. Nurse admin monthly Denosumab 120mg SC to pt's LUE, which he tolerated well. Pt was booked for next Onc f/u in 1 month on 05/01/22, as well as next Denosumab injection on the same day.
--- NOTE | 2022-05-01 10:19 | P.PNHO-ONC_ITS ---
Medical Summary - Medical Summary Date of Service: 05/01/22 Chief complaint: follow-up Medical Summary: Diagnosis: Metastatic prostate cancer March 2021 Prostate biopsy performed 06/06/2021 at [facility] revealed adenocarcinoma, [place] grade 9-10 ( 5+4;5+5) in all cores. Presented with urinary obstruction and diffuse abdominal and back pain in March 2021. CT abdomen/pelvis with contrast performed 04/14/2021 at [facility] revealed markedly distended bladder. Diffuse sclerotic bone disease concerning for metastatic disease, moderate bilateral hydroureteronephrosis secondary to bladder distention. Small bilateral pleural effusions. Bone scan performed 04/02/2021 revealed diffuse sclerotic bone lesions throughout the axial skeleton and proximal long bones. He was started on leuprolide 45 mg subQ every 6 months and bicalutamide 50 mg p.o. daily. 04/27/2021 he was started on abiraterone 1000 mg p.o. daily and prednisone [address] korey Hines. Interval History Interval history: Patient is here in follow-up. He reports that he is doing better. He is compliant with abiraterone and prednisone daily. He denies exertional chest pain, shortness of breath, nausea, abdominal discomfort or change in bowel habits. He denies any back or bone pain. His appetite and energy level are good. Review of Systems - Constitutional Reports as per HPI, Reports no additional constitutional complaints - Cardiovascular Reports no additional cardiovascular complaints - Respiratory Reports no additional respiratory complaints - Gastrointestinal Reports no additional gastrointestinal complaints [facility] Medical History: Medical History (Last Reviewed 05/01/22 @ 10:29 by Yusra Su) Anxiety BPH (benign prostatic hyperplasia) Chronic post-traumatic stress disorder (PTSD) CTS (carpal tunnel syndrome) Depression, major Diabetes mellitus with hyperglycemia, with long-term current use of insulin Diabetic neuropathy Dyslipidemia Erectile dysfunction Essential hypertension History of nephrolithiasis History of nuclear stress test 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 senior care prescription benzodiazepine use Obesity OCD (obsessive compulsive disorder) PTSD (post-traumatic stress disorder) Family History: Family History (Last Reviewed 05/01/22 @ 10:29 by Yusra Su) Paternal Uncle Cancer Maternal Uncle Prostate cancer Maternal Uncle Prostate cancer Family/Other Prostate cancer Maternal Grandmother Cancer of kidney Sister Skin cancer Sister Stroke Father Heart attack Surgical History: Surgical History (Last Reviewed 05/01/22 @ 10:29 by Yusra Su) No pertinent past surgical history Social History: Social History (Last Reviewed 05/01/22 @ 10:29 by Yusra Su) Living Situation History: Household Members: Significant Other Housing: House Are you a primary career discovery teacher to a significant other at home: No Do you presently have visiting nurse or other home services: No Alcohol History Details: 1. How often do you have a drink containing alcohol?: a. Never Tobacco History: Patient Tobacco Use Status: Never used Tobacco e-Cigarette/Vaping Use: Never Used Substance Use History: Use of substances other than those prescribed or required for medical reasons : No Domestic Abuse History: Have you been hit, kicked, punched, or otherwise hurt by someone within the past year? 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 Oncology Screenings - ECOG Performance Status ECOG Performance Status: 0 Home Medications and Allergies Current Medications: Current Medications Denosumab (Denosumab 120 Mg/1.7 Ml Vial) 120 mg SUBCUT ONCE GIOVANNA Stop: 05/01/22 23:59 Home Medications Medication Instructions Recorded Confirmed Type cholecalciferol (vitamin D3) 50 50 mcg PO DAILY 07/31/21 05/01/22 History mcg (2,000 unit) capsule (Vitamin D3) insulin needles (disposable) 31 07/31/21 05/01/22 History leuprolide acetate (6 month) 45 mg 45 mg subcut [id number] 07/31/21 05/01/22 History (6 month) subcutaneous syringe (Eligard) whtcvsxj-yrg-mnbze acid 0.4 1 tab PO DAILY 07/31/21 05/01/22 History mg-lycopene 300 mcg-lutein 250 mcg tablet (Centrum Silver) insulin glargine-yfgn 100 unit/mL 40 unit subcut DAILY 01/11/22 05/01/22 History (3 mL) subcutaneous pen (Semglee (insulin glargine-yfgn) Pen) denosumab 120 mg/1.7 mL (70 mg/mL) 120 mg subcut QMONTH 04/03/22 05/01/22 His tory subcutaneous solution (Xgeva) sertraline 50 mg PO DAILY depression 05/01/22 05/01/22 History Allergies Allergy/AdvReac Type Severity Reaction Status Date / Time metformin AdvReac Intermediate vomiting Verified 04/16/22 09:45 Exam Vital signs: Vital Signs Temp 97.5 F 04/03/22 10:19 Pulse 85 04/03/22 10:19 Resp 16 04/03/22 10:19 BP 143/64 H 04/03/22 10:19 Pulse Ox 100 04/03/22 10:19 O2 Del Method 04/03/22 10:19 Weight 115.3 kg BMI result Body Mass Index 36.4 - Constitutional Present: no acute distress, average body habitus - Routine HEENT Exam Head: Present: normal inspection - Routine Respiratory Exam Present: CTAB. Absent: accessory muscle use - Routine Cardiovascular Exam Cardiovascular: Present: S1, S2 - Routine Abdominal Exam Present: normal bowel sounds. Absent: mass - Routine Extremities Exam Absent: calf tenderness, pedal edema - Routine Skin Exam Present: intact. Absent: cyanosis Data - Labs CBC & Chem 7: 05/01/22 10:46 05/01/22 10:46 Assessment and Plan Patient Active problem list reviewed?: Yes (1) Prostate cancer Status: Chronic Assessment and plan: 1. This is a pleasant 66-year-old male with de Devon metastatic prostate cancer, adenocarcinoma widely metastatic to bone. Initial PSA of 501. He was started on combined androgen blockade, Casodex and Lupron. He was taken of the Casodex a few weeks later and was started on abiraterone 1000 mg daily along with prednisone 5 mg b.i.d.. He has been on this since April 2021. His bone scan showed innumerable metastatic lesions throughout the axial skeleton, femurs, humeri and left proximal tibia. He is on abiraterone with prednisone. Lupron every 6 months. Bone scan performed 09/2021 at [facility] revealed metastatic disease involving bilateral distal femur with focal abnormality in posterior iliac crest, distal right femur and proximal left fibula. PSA has persistently been elevated. CT chest/abdomen and pelvis with contrast in February 2022 shows no soft tissue involvement. He is tolerating treatment well. For his symptomatic bone metastasis, he has been started on denosumab 120 mg subcu monthly. I will repeat bone scan at this time. Submit genetic testing. Follow-up in 3 weeks. - Time Spent With Patient Time Spent with Patient (in minutes): 20
[2022-05-01 10:26] VITALS: BP 145/68; PULSE 9; RESP 16; TEMP 36.2; BMI 35.6
--- NOTE | 2022-05-01 10:34 | MHC.HEMONCSW ---
HERE FOR FOLLOW UP...OVERWHELMED, SAD AND TEARING UP AT TIMES. METASTATIC PROSTATE CANCER DOES NOT WANT COUNSELING REFERRAL AT THIS TIME SUPPORTIVE COUNSELING PROVIDED. HANDICAP [facility] COMPLETED, MAILED TO [facility] AND COPY SCAN AND GIVEN TO PATIENT
[2022-05-01 10:51] LABS: MANUAL DIFF FLAG NO
[2022-05-01 11:17] LABS: Basophils Percent Auto 0.4 % (0-2); Eosinophils Absolute Auto 0.2 X10*3/uL (0.0-0.4); Eosinophils Percent Auto 2.3 % (0-4); Hemoglobin 11.4 g/dl (14.0-18.0); Imm Gran Abs Auto 0.04 X10*3/uL (0.00-0.03); Imm Gran Pct Auto 0.6 % (0.0-0.4); Lymphocytes Absolute Auto 2.1 X10*3/uL (1.2-4.9); Lymphocytes Percent Auto 30.6 % (20-40); Mean Corpuscular HGB Conc 32.6 g/dl (31.0-36.0); Mean Corpuscular Hemoglobin 27.7 pg (27.0-33.0); Mean Corpuscular Volume 85.2 fL (80.0-98.0); Mean Platelet Volume 9.9 fL (9.4-12.4); Monocytes Absolute Auto 0.6 X10*3/uL (0.1-1.2); Monocytes Percent Auto 8.4 % (2-11); Neutrophils Percent Auto 57.7 % (45-73); Platelet Count 240 X10*3/uL (160-400); Red Blood Count 4.11 X10*6/uL (4.60-5.80); White Blood Count 6.9 X10*3/uL (4.8-10.8)
--- NOTE | 2022-05-01 11:17 | MHC.HEMONCMA ---
Patient seen today with provider for follow up prostate CA, Labs, VSS, follow up 1 month.
[2022-05-01 11:45] LABS: Alanine Aminotransferase 15 U/L (0-40); Albumin Level 3.9 g/dL (3.5-5.0); Alkaline Phosphatase 299 U/L (39-117); Anion Gap 11 (12-20); Aspartate Amino Transferase 16 U/L (5-37); Bilirubin Total 0.5 mg/dL (0.0-1.0); Blood Urea Nitrogen 13 mg/dL (9-16); Calcium 8.3 mg/dL (8.4-10.2); Carbon Dioxide 23 mmol/L (22-29); Chloride 111 mmol/L (96-108); Creatinine Clr Calc Pharmacy 110.2; Estimated Glomerular Filt Rate > 60; Glucose Random 192 mg/dL (60-115); Potassium 3.8 mmol/L (3.3-5.1); Sodium 141 mmol/L (135-145); Total Protein 6.4 g/dL (6.5-8.0)
[2022-05-01 11:58] LABS: Prostate Specific Antigen 24.07 ng/mL (<0.05-4.0)
--- NOTE | 2022-05-01 12:04 | MHC.HEMONC ---
Denosumab 120mg given right upper arm and tolerated well. Calcium 8.3. Follow up and denosumab scheduled for 1 month.
[2022-05-08 10:33] LABS: Testosterone, Total 2 ng/dL (250-1100)
[2022-06-03 09:44] VITALS: BP 137/65; PULSE 76; RESP 16; TEMP 36.5; O2SAT 99; BMI 36.1
--- NOTE | 2022-06-03 09:57 | PM.HEMONCPN ---
Medical Summary - Medical Summary Date of Service: 06/03/22 Chief complaint: Follow-up Medical Summary: Diagnosis: Metastatic prostate cancer March 2021 Prostate biopsy performed 06/06/2021 at [facility] revealed adenocarcinoma, [place] grade 9-10 ( 5+4;5+5) in all cores. Presented with urinary obstruction and diffuse abdominal and back pain in March 2021. CT abdomen/pelvis with contrast performed 04/14/2021 at [facility] revealed markedly distended bladder. Diffuse sclerotic bone disease concerning for metastatic disease, moderate bilateral hydroureteronephrosis secondary to bladder distention. Small bilateral pleural effusions. Bone scan performed 04/02/2021 revealed diffuse sclerotic bone lesions throughout the axial skeleton and proximal long bones. He was started on leuprolide 45 mg subQ every 6 months and bicalutamide 50 mg p.o. daily. 04/27/2021 he was started on abiraterone 1000 mg p.o. daily and prednisone [address] korey Hines. Interval History Interval history: Patient is here in follow-up. He is compliant with abiraterone and prednisone daily. He denies exertional chest pain, shortness of breath, nausea, abdominal discomfort or change in bowel habits. He denies any back or bone pain. His appetite and energy level are good. He did not go for bone scan, he was called about the test but he has not yet scheduled it. Review of Systems - Constitutional Reports as per HPI, Reports no additional constitutional complaints - Cardiovascular Reports no additional cardiovascular complaints - Respiratory Reports no additional respiratory complaints [facility] Medical History: Medical History (Last Reviewed 06/03/22 @ 09:48 by BARBARA Berger) Anxiety BPH (benign prostatic hyperplasia) Chronic post-traumatic stress disorder (PTSD) CTS (carpal tunnel syndrome) Depression, major Diabetes mellitus with hyperglycemia, with long-term current use of insulin Diabetic neuropathy Dyslipidemia Erectile dysfunction Essential hypertension History of nephrolithiasis History of nuclear stress test 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 Obesity OCD (obsessive compulsive disorder) PTSD (post-traumatic stress disorder) Family History: Family History (Last Reviewed 06/03/22 @ 09:48 by BARBARA Berger) Paternal Uncle Cancer Maternal Uncle Prostate cancer Maternal Uncle Prostate cancer Family/Other Prostate cancer Maternal Grandmother Cancer of kidney Sister Skin cancer Sister Stroke Father Heart attack Surgical History: Surgical History (Last Reviewed 06/03/22 @ 09:48 by BARBARA Berger) No pertinent past surgical history Social History: Social History (Last Updated 06/03/22 @ 09:50 by BARBARA Berger) Living Situation History: Household Members: Significant Other Housing: House Are you a primary human services care specialist to a significant other at home: No Do you presently have visiting nurse or other home services: No Alcohol History Details: 1. How often do you have a drink containing alcohol?: a. Never Tobacco History: Patient Tobacco Use Status: Never used Tobacco e-Cigarette/Vaping Use: Never Used Substance Use History: Use of substances other than those prescribed or required for medical reasons: No Domestic Abuse History: Have you been hit, kicked, punched, or otherwise hurt by someone within the past year? 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 Home Medications and Allergies Home Medications Medication Instructions Recorded Confirmed Type cholecalciferol (vitamin D3) 50 50 mcg PO DAILY 07/31/21 06/03/22 History mcg (2,000 unit) capsule (Vitamin D3) insulin needles (disposable) 31 07/31/21 06/03/22 History leuprolide acetate (6 month) 45 mg 45 mg subcut [id number] 07/31/21 06/03/22 History (6 month) subcutaneous syringe (Eligard) jtkcbhcr-oqe-dwrfy acid 0.4 1 tab PO DAILY 07/31/21 06/03/22 History mg-lycopene 300 mcg-lutein 250 mcg tablet (Centrum Silver) insulin glargine-yfgn 100 unit/mL 40 unit subcut DAILY 01/11/22 06/03/22 History (3 mL) subcutaneous pen (Semglee (insulin glargine-yfgn) Pen) denosumab 120 mg/1.7 mL (70 mg/mL) 120 mg subcut QMONTH 06/08/22 08/08/22 History subcutaneous solution (Xgeva) sertraline 50 mg PO DAILY depression 05/01/22 06/03/22 History Allergies Allergy/AdvReac Type Severity Reaction Status Date / Time metformin AdvReac Intermediate vomiting Verified 05/13/22 00:30 Exam Vital signs: Vital Signs Temp 97.7 F 06/03/22 09:44 Pulse 76 06/03/22 09:44 Resp 16 06/03/22 09:44 BP 137/65 06/03/22 09:44 Pulse Ox 99 06/03/22 09:44 O2 Del Method 06/03/22 09:44 Intake & Output 06/02/22 06/03/22 06/03/22 18:59 06:59 18:59 Other: Weight 114.4 kg [place] Weight in Grams [id number] Weight 114.4 kg BMI result Body Mass Index 36.1 - Constitutional Present: no acute distress, average body habitus - Routine HEENT Exam Head: Present: normal inspection - Routine Respiratory Exam Present: CTAB. Absent: accessory muscle use - Routine Cardiovascular Exam Cardiovascular: Present: S1, S2 - Routine Abdominal Exam Present: normal bowel sounds. Absent: mass - Routine Extremities Exam Absent: calf tenderness, pedal edema - Routine Skin Exam Present: intact. Absent: cyanosis Data - Labs CBC & Chem 7: 06/03/22 10:07 06/03/22 10:07 Assessment and Plan Patient Active problem list reviewed?: Yes (1) Prostate cancer Status: Chronic Assessment and plan: 1. This is a pleasant 66-year-old male with de Devon metastatic prostate cancer, adenocarcinoma widely metastatic to bone. Initial PSA of 501. He was started on combined androgen blockade, Casodex and Lupron. He was taken of the Casodex a few weeks later and was started on abiraterone 1000 mg daily along with prednisone 5 mg b.i.d.. He has been on this since April 2021. His bone scan showed innumerable metastatic lesions throughout the axial skeleton, femurs, humeri and left proximal tibia. He is on abiraterone with prednisone. Lupron every 6 months. Bone scan performed 09/2021 at [facility] revealed metastatic disease involving bilateral distal femur with focal abnormality in posterior iliac crest, distal right femur and proximal left fibula. PSA has persistently been elevated. CT chest/abdomen and pelvis with contrast in February 2022 shows no soft tissue involvement. He is tolerating treatment well. For his symptomatic bone metastasis, he has been started on denosumab 120 mg subcu monthly. Bone scan was ordered last month but patient has not yet scheduled it. If he has documented progression of disease, he will be switched to chemotherapy with Taxotere. His PSA is now beginning to increase. Follow-up in 3 weeks. - Time Spent With Patient Time Spent with Patient (in minutes): 20
[2022-06-03 10:45] LABS: MANUAL DIFF FLAG NO
[2022-06-03 10:48] LABS: Basophils Percent Auto 0.3 % (0-2); Eosinophils Absolute Auto 0.2 X10*3/uL (0.0-0.4); Eosinophils Percent Auto 2.9 % (0-4); Hematocrit 36.2 % (42.0-52.0); Imm Gran Abs Auto 0.04 X10*3/uL (0.00-0.03); Imm Gran Pct Auto 0.5 % (0.0-0.4); Lymphocytes Absolute Auto 2.2 X10*3/uL (1.2-4.9); Lymphocytes Percent Auto 28.8 % (20-40); Mean Corpuscular HGB Conc 33.1 g/dl (31.0-36.0); Mean Corpuscular Hemoglobin 28.2 pg (27.0-33.0); Mean Platelet Volume 9.8 fL (9.4-12.4); Monocytes Absolute Auto 0.6 X10*3/uL (0.1-1.2); Neutrophils Absolute Auto 4.5 x10*3/uL (2.0-8.3); Neutrophils Percent Auto 59.5 % (45-73); Platelet Count 257 X10*3/uL (160-400); Red Blood Count 4.26 X10*6/uL (4.60-5.80); Red Cell Distribution Width 13.9 % (11.0-16.0); White Blood Count 7.5 X10*3/uL (4.8-10.8)
[2022-06-03 11:05] LABS: Alanine Aminotransferase 13 U/L (0-40); Alkaline Phosphatase 398 U/L (39-117); Anion Gap 13 (12-20); Aspartate Amino Transferase 12 U/L (5-37); Bilirubin Total 0.6 mg/dL (0.0-1.0); Blood Urea Nitrogen 13 mg/dL (9-16); Calcium 8.7 mg/dL (8.4-10.2); Carbon Dioxide 22 mmol/L (22-29); Chloride 109 mmol/L (96-108); Creatinine Clr Calc Pharmacy 115.2; Estimated Glomerular Filt Rate > 60; Glucose Random 223 mg/dL (60-115); Potassium 3.9 mmol/L (3.3-5.1); Sodium 140 mmol/L (135-145); Total Protein 6.6 g/dL (6.5-8.0)
[2022-06-03 11:32] LABS: Prostate Specific Antigen 27.31 ng/mL (<0.05-4.0)
--- NOTE | 2022-06-03 15:36 | MHC.HEMONCMA ---
pt seen today for 3 week f/u for prostate cancer, labs,vss done.
--- NOTE | 2022-06-03 15:43 | MHC.HEMONC ---
Denosumab 120mg sc given as ordered and tolerated well. Next injection and follow up scheduled in 1 month. Order for bone scan printed and given to Jazlyn INGRAM to place in [facility].
--- NOTE | 2022-06-03 16:11 | MHC.HEMONCMA ---
Spoke with pt brother Gonzales aboout bone scan appt 06/11/22 @ 11am and he stated he would let his brother know so he can make the appt.
--- NOTE | 2022-06-13 10:35 | MHC.HEMONCMA ---
Gave message to Cary to reach out to pt about appt change, appt for followup is now 06/18/[address] Plaza and 2pm for chemo teach.
--- NOTE | 2022-06-13 11:13 | MHC.HEMONC ---
Pt informed of f/u with Dr Plaza next week. We will also offer chemo teaching at that time.
--- NOTE | 2022-06-13 11:28 | MHC.HEMONCMA ---
Per Cary, patient notified of appt changes.
[2022-06-18 13:02] VITALS: BMI 36.4
--- NOTE | 2022-06-18 13:02 | P.PNHO-ONC_ITS ---
Medical Summary - Medical Summary Date of Service: 06/18/22 Chief complaint: Follow-up Medical Summary: Diagnosis: Metastatic prostate cancer March 2021 Prostate biopsy performed 06/06/2021 at [facility] revealed adenocarcinoma, [place] grade 9-10 ( 5+4;5+5) in all cores. Presented with urinary obstruction and diffuse abdominal and back pain in March 2021. CT abdomen/pelvis with contrast performed 04/14/2021 at [facility] revealed markedly distended bladder. Diffuse sclerotic bone disease concerning for metastatic disease, moderate bilateral hydroureteronephrosis secondary to bladder distention. Small bilateral pleural effusions. Bone scan performed 04/02/2021 revealed diffuse sclerotic bone lesions throughout the axial skeleton and proximal long bones. He was started on leuprolide 45 mg subQ every 6 months and bicalutamide 50 mg p.o. daily. 04/27/2021 he was started on abiraterone 1000 mg p.o. daily and prednisone [address] korey Hines. Bone scan performed 09/2021 at [facility] revealed metastatic disease involving bilate ral distal femur with focal abnormality in posterior iliac crest, distal right femur and proximal left fibula. CT chest/abdomen and pelvis with contrast in February 2022 showed no soft tissue involvement. Interval History Interval history: Patient is here in follow-up. He is here to discuss results of bone scan and further management. Overall he feels well and denies any bone pain, fatigue, loss of appetite or weight loss. Review of Systems - Constitutional Reports as per HPI, Reports no additional constitutional complaints - Cardiovascular Reports no additional cardiovascular complaints - Respiratory Reports no additional respiratory complaints - Gastrointestinal Reports no additional gastrointestinal complaints [facility] Medical History: Medical History (Last Reviewed 06/18/22 @ 13:27 by Yusra Su) Anxiety BPH (benign prostatic hyperplasia) Chronic post-traumatic stress disorder (PTSD) CTS (carpal tunnel syndrome) Depression, major Diabetes mellitus with hyperglycemia, with long-term current use of insulin Diabetic neuropathy Dyslipidemia Erectile dysfunction Essential hypertension History of nephrolithiasis History of nuclear stress test 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 Obesity OCD (obsessive compulsive disorder) PTSD (post-traumatic stress disorder) Family History: Family History (Last Reviewed 06/18/22 @ 13:27 by Yusra Su) Paternal Uncle Cancer Maternal Uncle Prostate cancer Maternal Uncle Prostate cancer Family/Other Prostate cancer Maternal Grandmother Cancer of kidney Sister Skin cancer Sister Stroke Father Heart attack Surgical History: Surgical History (Last Reviewed 06/18/22 @ 13:27 by Yusra Su) No pertinent past surgical history Social History: Social History (Last Reviewed 06/18/22 @ 13:27 by Yusra Su) Living Situation History: Household Members: Significant Other Housing: House Are you a primary home care provider to a significant other at home: No Do you presently have visiting nurse or other home services: No Alcohol History Details: 1. How often do you have a drink containing alcohol?: a. Never Tobacco History: Patient Tobacco Use Status: Never used Tobacco e-Cigarette/Vaping Use: Never Used Substance Use History: Use of substances other than those prescribed or required for medical reasons : No Domestic Abuse History: Have you been hit, kicked, punched, or otherwise hurt by someone within the past year? 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 Oncology Screenings - ECOG Performance Status ECOG Performance Status: 1 Home Medications and Allergies Home Medications Medication Instructions Recorded Confirmed Type cholecalciferol (vitamin D3) 50 50 mcg PO DAILY 07/31/21 06/03/22 History mcg (2,000 unit) capsule (Vitamin D3) insulin needles (disposable) 31 07/31/21 06/03/22 History leuprolide acetate (6 month) 45 mg 45 mg subcut [id number] 07/31/21 06/03/22 History (6 month) subcutaneous syringe (Eligard) vanmhuuc-yqv-xrvxd acid 0.4 1 tab PO DAILY 07/31/21 06/03/22 History mg-lycopene 300 mcg-lutein 250 mcg tablet (Centrum Silver) insulin glargine-yfgn 100 unit/mL 40 unit subcut DAILY 01/11/22 06/03/22 History (3 mL) subcutaneous pen (Semglee (insulin glargine-yfgn) Pen) denosumab 120 mg/1.7 mL (70 mg/mL) 120 mg subcut QMONTH 04/03/22 06/03/22 History subcutaneous solution (Xgeva) enzalutamide 40 mg capsule 160 mg PO DAILY 06/18/22 06/18/22 History Allergies Allergy/AdvReac Type Severity Reaction Status Date / Time metformin AdvReac Intermediate vomiting Verified 05/13/22 00:30 Exam Vital signs: Vital Signs Temp 97.7 F 06/03/22 09:44 Pulse 76 06/03/22 09:44 Resp 16 06/03/22 09:44 BP 137/65 06/03/22 09:44 Pulse Ox 99 06/03/22 09:44 O2 Del Method 06/03/22 09:44 Weight 114.4 kg BMI result Body Mass Index 36.1 - Constitutional Present: no acute distress, average body habitus - Routine HEENT Exam Head: Present: normal inspection - Routine Respiratory Exam Present: CTAB. Absent: accessory muscle use - Routine Cardiovascular Exam Cardiovascular: Present: S1, S2 - Routine Abdominal Exam Present: normal bowel sounds. Absent: mass - Routine Extremities Exam Absent: calf tenderness, pedal edema - Routine Skin Exam Present: intact. Absent: cyanosis Data - Labs CBC & Chem 7: 06/03/22 10:07 06/18/22 13:36 Assessment and Plan Patient Active problem list reviewed?: Yes (1) Prostate cancer Status: Chronic Assessment and plan: 1. This is a pleasant 66-year-old male with de [place] metastatic prostate cancer, adenocarcinoma widely metastatic to bone. Initial PSA of 501. He was started on combined androgen blockade, Casodex and Lupron. He was taken of the Casodex a few weeks later and was started on abiraterone 1000 mg daily along with prednisone 5 mg b.i.d.. He has been on this since April 2021. His bone scan showed innumerable metastatic lesions throughout the axial skeleton, femurs, humeri and left proximal tibia. He was on abiraterone with prednisone. Lupron every 6 months. For his symptomatic bone metastasis, he has been started on denosumab 120 mg subcu monthly. Bone scan performed 05/2022 because of rising PSA showed widespread metastatic tumor involvement with significant progression compared to September 2021. I discussed this with the patient and advised him about chemotherapy with Taxotere. Patient refuse chemotherapy. He wants to stay with hormonal therapy. He is being switched to enzalutamide 160 mg once daily. Abiraterone with prednisone is being discontinued. Follow-up in 3 weeks. - Time Spent With Patient Time Spent with Patient (in minutes): 15
[2022-06-18 13:18] VITALS: BP 137/65; PULSE 84; RESP 18; TEMP 36.8; O2SAT 99
--- NOTE | 2022-06-18 13:53 | MHC.HEMONC ---
Pt was here to see Dr Plaza and get chemo teach for Taxotere infusions. As I sat with him he really was clear that he did not want infusional chemo. It was explained to him by me and by Dr Plaza that the oral abiraterone was no longer helping him and that the bone scan showed progression. Because he refused taxotere, Dr Plaza will order enzalutimide. He will stop abiretarone and prednisone. It was sent to [facility] and I will f/u with them. He will call us when drug is delivered. I went through education with him and he signed consent.
[2022-06-18 14:13] LABS: Alanine Aminotransferase 15 U/L (0-40); Alkaline Phosphatase 445 U/L (39-117); Anion Gap 13 (12-20); Aspartate Amino Transferase 15 U/L (5-37); Bilirubin Total 0.4 mg/dL (0.0-1.0); Blood Urea Nitrogen 12 mg/dL (9-16); Calcium 9.1 mg/dL (8.4-10.2); Carbon Dioxide 23 mmol/L (22-29); Chloride 107 mmol/L (96-108); Creatinine Clr Calc Pharmacy 106.6; Estimated Glomerular Filt Rate > 60; Glucose Random 199 mg/dL (60-115); Potassium 4.1 mmol/L (3.3-5.1); Sodium 139 mmol/L (135-145); Total Protein 6.9 g/dL (6.5-8.0)
--- NOTE | 2022-06-18 14:19 | MHC.HEMONCMA ---
Patient seen by Cary santos for teach, reviewed and update medication and hx.
[2022-06-18 14:34] LABS: Prostate Specific Antigen 33.94 ng/mL (<0.05-4.0)
--- NOTE | 2022-06-18 14:52 | MHC.HEMONC ---
I called [facility] to let them know pt is no longer taking Abiraterone and will be started on Enzalutimede. They have rx and will call if it requires PA. I also called [facility] and told them Prednisone is D/Cd.
--- NOTE | 2022-06-21 16:15 | MHC.HEMONC ---
PA completed and faxed back to [facility] for XTANDI.
--- NOTE | 2022-06-25 09:29 | MHC.HEMONC ---
Pt approved for Enzalutamide through [facility] valid 05/25/22-06/24/23. Approval notice scanned in chart. [facility] has order and is expediting fill.
[2022-06-25 23:22] LABS: Testosterone, Total <1 ng/dL (250-1100)
--- NOTE | 2022-06-28 15:12 | MHC.HEMONC ---
Pt received Enzalutamide today and left voice message to say that he will begin taking it tomorrow.
[2022-07-08 09:00] LABS: MANUAL DIFF FLAG NO
[2022-07-08 09:05] LABS: Basophils Percent Auto 0.4 % (0-2); Eosinophils Absolute Auto 0.7 X10*3/uL (0.0-0.4); Eosinophils Percent Auto 10.7 % (0-4); Hematocrit 36.1 % (42.0-52.0); Hemoglobin 12.1 g/dl (14.0-18.0); Imm Gran Abs Auto 0.06 X10*3/uL (0.00-0.03); Imm Gran Pct Auto 0.9 % (0.0-0.4); Lymphocytes Absolute Auto 1.7 X10*3/uL (1.2-4.9); Lymphocytes Percent Auto 24.2 % (20-40); Mean Corpuscular HGB Conc 33.5 g/dl (31.0-36.0); Mean Corpuscular Hemoglobin 27.3 pg (27.0-33.0); Mean Corpuscular Volume 81.5 fL (80.0-98.0); Mean Platelet Volume 8.8 fL (9.4-12.4); Monocytes Absolute Auto 0.6 X10*3/uL (0.1-1.2); Monocytes Percent Auto 8.5 % (2-11); Neutrophils Absolute Auto 3.8 x10*3/uL (2.0-8.3); Neutrophils Percent Auto 55.3 % (45-73); Platelet Count 263 X10*3/uL (160-400); Red Blood Count 4.43 X10*6/uL (4.60-5.80); Red Cell Distribution Width 13.9 % (11.0-16.0); White Blood Count 6.9 X10*3/uL (4.8-10.8)
[2022-07-08 09:21] LABS: Alanine Aminotransferase 20 U/L (0-40); Albumin Level 4.1 g/dL (3.5-5.0); Alkaline Phosphatase 422 U/L (39-117); Anion Gap 14 (12-20); Aspartate Amino Transferase 20 U/L (5-37); Bilirubin Total 0.5 mg/dL (0.0-1.0); Blood Urea Nitrogen 8 mg/dL (9-16); Calcium 8.4 mg/dL (8.4-10.2); Carbon Dioxide 25 mmol/L (22-29); Chloride 106 mmol/L (96-108); Creatinine Clr Calc Pharmacy 118.6; Estimated Glomerular Filt Rate > 60; Glucose Random 233 mg/dL (60-115); Potassium 3.1 mmol/L (3.3-5.1); Sodium 142 mmol/L (135-145)
[2022-07-08 09:32] VITALS: BP 132/59; PULSE 78; RESP 17; TEMP 36.2; O2SAT 99
[2022-07-08] MEDS: Potassium Chloride ER 20 MEQ TAB.ER.PRT PO (09:47)
--- NOTE | 2022-07-08 10:37 | MHC.HEMONC ---
Pt here for monthly denosumab 120mg injection. Labs reviewed. Potassium 3.1. Dr Jorge aware. New order for potassium 20meq given po. Called lab and asked them to fax todays labs to Dr Rivera. Pt aware to f/u with pcp. Denosumab given left upper arm. Pt toll well. Calendar for next monthly injection given to patient.
[2022-08-08 10:19] VITALS: BP 143/65; PULSE 75; RESP 14; TEMP 36; O2SAT 97; BMI 34.7
--- NOTE | 2022-08-08 10:25 | P.PNHO-ONC_ITS ---
Medical Summary - Medical Summary Date of Service: 08/08/22 Chief complaint: Follow-up Medical Summary: Diagnosis: Metastatic prostate cancer March 2021 Prostate biopsy performed 06/06/2021 at [facility] revealed adenocarcinoma, [place] grade 9-10 ( 5+4;5+5) in all cores. Presented with urinary obstruction and diffuse abdominal and back pain in March 2021. CT abdomen/pelvis with contrast performed 04/14/2021 at [facility] revealed markedly distended bladder. Diffuse sclerotic bone disease concerning for metastatic disease, moderate bilateral hydroureteronephrosis secondary to bladder distention. Small bilateral pleural effusions. Bone scan performed 04/02/2021 revealed diffuse sclerotic bone lesions throughout the axial skeleton and proximal long bones. He was started on leuprolide 45 mg subQ every 6 months and bicalutamide 50 mg p.o. daily. 04/27/2021 he was started on abiraterone 1000 mg p.o. daily and prednisone [address] korey Hines. Bone scan performed 09/2021 at [facility] revealed metastatic disease involving bilate ral distal femur with focal abnormality in posterior iliac crest, distal right femur and proximal left fibula. CT chest/abdomen and pelvis with contrast in February 2022 showed no soft tissue involvement. Interval History Interval history: Patient is here in follow-up. He is doing well, he started the new medication. He is taking 4 pills once a day. He had some dry mouth to begin with, now it has improved. He denies any bone pain, fatigue, loss of appetite or weight loss. Review of Systems - Constitutional Reports as per HPI, Reports no additional constitutional complaints - Cardiovascular Reports no additional cardiovascular complaints - Respiratory Reports no additional respiratory complaints - Gastrointestinal Reports no additional gastrointestinal complaints [facility] Medical History: Medical History (Last Reviewed 08/08/22 @ 10:22 by Meli Montalvo [employer]) Anxiety BPH (benign prostatic hyperplasia) Chronic post-traumatic stress disorder (PTSD) CTS (carpal tunnel syndrome) Depression, major Diabetes mellitus with hyperglycemia, with long-term current use of insulin Diabetic neuropathy Dyslipidemia Erectile dysfunction Essential hypertension History of nephrolithiasis History of nuclear stress test 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 halfway prescription benzodiazepine use Obesity OCD (obsessive compulsive disorder) PTSD (post-traumatic stress disorder) Family History: Family History (Last Reviewed 10/13/22 @ 10:22 by Meli Montalvo CMA) Paternal Uncle Cancer Maternal Uncle Prostate cancer Maternal Uncle Prostate cancer Family/Other Prostate cancer Maternal Grandmother Cancer of kidney Sister Skin cancer Sister Stroke Father Heart attack Surgical History: Surgical History (Last Reviewed 08/08/22 @ 10:22 by Meli Montalvo CMA) No pertinent past surgical history Social History: Social History (Last Updated 08/08/22 @ 10:22 by Meli Montalvo CMA) Living Situation History: Household Members: Significant Other Housing: House Are you a primary neonatal critical care nurse to a significant other at home: No Do you presently have visiting nurse or other home services: No Alcohol History Details: 1. How often do you have a drink containing alcohol?: a. Never Tobacco History: Patient Tobacco Use Status: Never used Tobacco e-Cigarette/Vaping Use: Never Used Substance Use History: Use of substances other than those prescribed or required for medical reasons : No Domestic Abuse History: Have you been hit, kicked, punched, or otherwise hurt by someone within the past year? 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 Home Medications and Allergies Home Medications Medication Instructions Recorded Confirmed Type cholecalciferol (vitamin D3) 50 50 mcg PO DAILY 07/31/21 08/08/22 History mcg (2,000 unit) capsule (Vitamin D3) insulin needles (disposable) 31 07/31/21 08/08/22 History leuprolide acetate (6 month) 45 mg 45 mg subcut [id number] 07/31/21 08/08/22 History (6 month) subcutaneous syringe (Eligard) cvjiidxv-xzw-bpnsa acid 0.4 1 tab PO DAILY 07/31/21 08/08/22 History mg-lycopene 300 mcg-lutein 250 mcg tablet (Centrum Silver) insulin glargine-yfgn 100 unit/mL 40 unit subcut DAILY 01/11/22 08/08/22 History (3 mL) subcutaneous pen (Semglee (insulin glargine-yfgn) Pen) denosumab 120 mg/1.7 mL (70 mg/mL) 120 mg subcut QMONTH 04/03/22 08/08/22 History subcutaneous solution (Xgeva) enzalutamide 40 mg capsule 40 mg PO QID 07/15/22 08/08/22 History glyburide 5 mg tablet 5 mg PO DAILY 07/15/22 08/08/22 History Allergies Allergy/AdvReac Type Severity Reaction Status Date / Time metformin AdvReac Intermediate vomiting Verified 08/08/22 10:22 Exam Vital signs: Vital Signs Temp 96.8 F 08/08/22 10:19 Pulse 75 08/08/22 10:19 Resp 14 08/08/22 10:19 BP 143/65 H 08/08/22 10:19 Pulse Ox 97 08/08/22 10:19 O2 Del Method 08/08/22 10:19 Intake & Output 08/07/22 08/08/22 08/08/22 18:59 06:59 18:59 Other: Weight 109.7 kg [place] Weight in Grams [id number] Weight 109.7 kg BMI result Body Mass Index 34.7 - Constitutional Present: no acute distress, average body habitus - Routine HEENT Exam Head: Present: normal inspection Eye: Present: normal appearance - Routine Neck Exam Absent: lymphadenopathy - Routine Respiratory Exam Present: CTAB. Absent: accessory muscle use - Routine Cardiovascular Exam Cardiovascular: Present: S1, S2 - Routine Abdominal Exam Present: normal bowel sounds. Absent: mass - Routine Extremities Exam Absent: calf tenderness, pedal edema - Routine Skin Exam Present: intact. Absent: cyanosis Data - Labs CBC & Chem 7: 07/08/22 08:50 08/08/22 10:06 Assessment and Plan Patient Active problem list reviewed?: Yes (1) Prostate cancer Status: Chronic Assessment and plan: 1. This is a pleasant 67-year-old male with [place] metastatic prostate cancer, adenocarcinoma widely metastatic to bone. Initial PSA of 501. He was started on combined androgen blockade, Casodex and Lupron. He was taken of the Casodex a few weeks later and was started on abiraterone 1000 mg daily along with prednisone 5 mg b.i.d.. He has been on this since April 2021. His bone scan showed innumerable metastatic lesions throughout the axial skeleton, femurs, humeri and left proximal tibia. He was on abiraterone with prednisone. Lupron every 6 months. For his symptomatic bone metastasis, he has been started on denosumab 120 mg subcu monthly. Bone scan performed 05/2022 because of rising PSA showed widespread metastatic tumor involvement with significant progression compared to September 2021. Serum testosterone less than 1 since November 2021. Patient refused chemotherapy with Taxotere. He was started on enzalutamide 160 mg once daily since 06/2022. He is tolerating it well. Continue to monitor PSA. Denosumab administered today. Follow-up in 4 weeks. - Time Spent With Patient Time Spent with Patient (in minutes): 15
[2022-08-08 10:59] LABS: Albumin Level 4.2 g/dL (3.5-5.0); Anion Gap 15 (12-20); Bilirubin Total 0.2 mg/dL (0.0-1.0); Blood Urea Nitrogen 18 mg/dL (9-16); Calcium 8.7 mg/dL (8.4-10.2); Carbon Dioxide 20 mmol/L (22-29); Chloride 108 mmol/L (96-108); Creatinine Clr Calc Pharmacy 96.1; Estimated Glomerular Filt Rate > 60; Glucose Random 249 mg/dL (60-115); Potassium 4.6 mmol/L (3.3-5.1); Sodium 138 mmol/L (135-145); Total Protein 6.8 g/dL (6.5-8.0)
[2022-08-08 11:12] LABS: Alanine Aminotransferase 11 U/L (0-40); Alkaline Phosphatase 500 U/L (39-117); Aspartate Amino Transferase 32 U/L (5-37)
--- NOTE | 2022-08-08 12:10 | MHC.HEMONC ---
Monthly Denosumab 120mg s/c administered to right upper arm and well tolerated. Calcium 8.[address] Plaza today. Follow up in one month with Xgeva injection. No complaints at this time. Calender provided.
[2022-08-08 12:55] LABS: Prostate Specific Antigen 49.12 ng/mL (<0.05-4.0)
--- NOTE | 2022-08-08 15:36 | MHC.HEMONCMA ---
Pt was in for follow up. Clinical summary reviewed and updated, VSS. Labs were drawn. Pt to return in 1 month.
--- NOTE | 2022-09-03 14:10 | P.PNHO-ONC_ITS ---
Medical Summary - Medical Summary Date of Service: 09/03/22 Chief complaint: follow-up Medical Summary: Diagnosis: Metastatic prostate cancer March 2021 Prostate biopsy performed 06/06/2021 at [facility]rology revealed adenocarcinoma, [place] grade 9-10 ( 5+4;5+5) in all cores. Presented with urinary obstruction and diffuse abdominal and back pain in March 2021. CT abdomen/pelvis with contrast performed 04/14/2021 at [facility] revealed markedly distended bladder. Diffuse sclerotic bone disease concerning for metastatic disease, moderate bilateral hydroureteronephrosis secondary to bladder distention. Small bilateral pleural effusions. Bone scan performed 04/02/2021 revealed diffuse sclerotic bone lesions throughout the axial skeleton and proximal long bones. He was started on leuprolide 45 mg subQ every 6 months and bicalutamide 50 mg p.o. daily. 04/27/2021 he was started on abiraterone 1000 mg p.o. daily and prednisone [address] korey Hines. Bone scan performed 09/2021 at [facility] revealed metastatic disease involving bilat eral distal femur with focal abnormality in posterior iliac crest, distal right femur and proximal left fibula. CT chest/abdomen and pelvis with contrast in February 2022 showed no soft tissue involvement. Interval History Interval history: Patient is here in follow-up. He is taking the medication daily as prescribed. He reports increased fatigue and body aches. He is concerned about his girlfriend who is going for hip surgery next month. He has good days and bad days. His appetite is stable. He denies weight loss. No chest pain or shortness of breath. No diarrhea or change in bowel habits. No headache or dizziness. Review of Systems - Constitutional Reports as per HPI, Reports no additional constitutional complaints - Cardiovascular Reports no additional cardiovascular complaints - Respiratory Reports no additional respiratory complaints - Gastrointestinal Reports no additional gastrointestinal complaints [facility] Medical History: Medical History (Last Reviewed 08/08/22 @ 12:56 by Tish Rivera MD) Anxiety BPH (benign prostatic hyperplasia) Chronic post-traumatic stress disorder (PTSD) CTS (carpal tunnel syndrome) Depression, major Diabetes mellitus with hyperglycemia, with long-term current use of insulin Diabetic neuropathy Dyslipidemia Erectile dysfunction Essential hypertension History of nephrolithiasis History of nuclear stress test 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 detention prescription benzodiazepine use Obesity OCD (obsessive compulsive disorder) PTSD (post-traumatic stress disorder) Family History: Family History (Last Reviewed 08/08/22 @ 12:56 by Tish Rivera MD) Paternal Uncle Cancer Maternal Uncle Prostate cancer Maternal Uncle Prostate cancer Family/Other Prostate cancer Maternal Grandmother Cancer of kidney Sister Skin cancer Sister Stroke Father Heart attack Surgical History: Surgical History (Last Reviewed 08/08/22 @ 12:56 by Tish Rivera MD) No pertinent past surgical history Social History: Social History (Last Reviewed 08/08/22 @ 12:56 by Tish Rivera MD) Living Situation History: Household Members: Significant Other Housing: House Are you a primary hospice spiritual care coordinator to a significant other at home: No Do you presently have visiting nurse or other home services: No Alcohol History Details: 1. How often do you have a drink containing alcohol?: a. Never Tobacco History: Patient Tobacco Use Status: Never used Tobacco e-Cigarette/Vaping Use: Never Used Substance Use History: Use of substances other than those prescribed or required for medical reasons : No Domestic Abuse History: Have you been hit, kicked, punched, or otherwise hurt by someone within the past year? 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 Oncology Screenings - ECOG Performance Status ECOG Performance Status: 1 Home Medications and Allergies Home Medications Medication Instructions Recorded Confirmed Type cholecalciferol (vitamin D3) 50 50 mcg PO DAILY 07/31/21 09/03/22 History mcg (2,000 unit) capsule (Vitamin D3) insulin needles (disposable) 31 07/31/21 08/08/22 History leuprolide acetate (6 month) 45 mg 45 mg subcut [id number] 07/31/21 09/03/22 History (6 month) subcutaneous syringe (Eligard) nbcxyxlc-ezk-ohaas acid 0.4 1 tab PO DAILY 07/31/21 09/03/22 History mg-lycopene 300 mcg-lutein 250 mcg tablet (Centrum Silver) insulin glargine-yfgn 100 unit/mL 40 unit subcut DAILY 01/11/22 09/03/22 History (3 mL) subcutaneous pen (Semglee (insulin glargine-yfgn) Pen) denosumab 120 mg/1.7 mL (70 mg/mL) 120 mg subcut QMONTH 04/03/22 09/03/22 H istory subcutaneous solution (Xgeva) enzalutamide 40 mg capsule 40 mg PO QID 07/15/22 09/03/22 History glyburide 5 mg tablet 5 mg PO DAILY 07/15/22 09/03/22 History Allergies Allergy/AdvReac Type Severity Reaction Status Date / Time metformin AdvReac Intermediate vomiting Verified 08/08/22 12:54 Exam Vital signs: Vital Signs Temp 96.8 F 08/08/22 10:19 Pulse 75 08/08/22 10:19 Resp 14 08/08/22 10:19 BP 143/65 H 08/08/22 10:19 Pulse Ox 97 08/08/22 10:19 O2 Del Method 08/08/22 10:19 Weight 109.7 kg BMI result Body Mass Index 34.7 - Constitutional Present: no acute distress, average body habitus - Routine HEENT Exam Head: Present: normal inspection Eye: Present: PERRL - Routine Neck Exam Absent: lymphadenopathy - Routine Respiratory Exam Present: CTAB. Absent: accessory muscle use - Routine Cardiovascular Exam Cardiovascular: Present: S1, S2 - Routine Abdominal Exam Present: normal bowel sounds. Absent: mass - Routine Extremities Exam Absent: calf tenderness, pedal edema - Routine Skin Exam Present: intact. Absent: cyanosis Data - Labs CBC & Chem 7: 09/03/22 14:23 09/03/22 14:23 Assessment and Plan Patient Active problem list reviewed?: Yes (1) Prostate cancer Status: Chronic Assessment and plan: 1. This is a pleasant 67-year-old male with de [place] metastatic prostate cancer, adenocarcinoma widely metastatic to bone. Initial PSA of 501. He was started on combined androgen blockade, Casodex and Lupron. He was on abiraterone 1000 mg daily along with prednisone 5 mg b.i.d from April 2021 until end of May 2022. For his symptomatic bone metastasis, he has been started on denosumab 120 mg subcu monthly. Bone scan performed 05/2022 because of rising PSA showed widespread metastatic tumor involvement with significant progression compared to September 2021. Serum testosterone less than 1 since November 2021. Patient refused chemotherapy with Taxotere. He was started on enzalutamide 160 mg once daily since 06/2022. Today I discussed with him that his PSA is continuing to go up, he is not having a response to enzalutamide. I have again recommended chemotherapy with Taxotere. He would like to wait until October, he wants to have his girlfriend undergo her hip surgery 1st. Patient was advised to call if he develops worsening symptoms. Denosumab administered today. Follow-up in 1 month. - Time Spent With Patient Time Spent with Patient (in minutes): 25
[2022-09-03 14:26] VITALS: BP 160/72; PULSE 78; RESP 20; TEMP 36.1; O2SAT 96; BMI 34.2
[2022-09-03 14:26] LABS: MANUAL DIFF FLAG NO
[2022-09-03 14:29] LABS: Basophils Percent Auto 0.4 % (0-2); Eosinophils Absolute Auto 0.4 X10*3/uL (0.0-0.4); Eosinophils Percent Auto 4.7 % (0-4); Hematocrit 39.1 % (42.0-52.0); Hemoglobin 12.5 g/dl (14.0-18.0); Imm Gran Abs Auto 0.06 X10*3/uL (0.00-0.03); Imm Gran Pct Auto 0.8 % (0.0-0.4); Lymphocytes Absolute Auto 1.6 X10*3/uL (1.2-4.9); Lymphocytes Percent Auto 20.9 % (20-40); Mean Corpuscular Hemoglobin 26.9 pg (27.0-33.0); Mean Corpuscular Volume 84.3 fL (80.0-98.0); Mean Platelet Volume 9.3 fL (9.4-12.4); Monocytes Absolute Auto 0.5 X10*3/uL (0.1-1.2); Monocytes Percent Auto 6.6 % (2-11); Neutrophils Absolute Auto 4.9 x10*3/uL (2.0-8.3); Neutrophils Percent Auto 66.6 % (45-73); Platelet Count 253 X10*3/uL (160-400); Red Blood Count 4.64 X10*6/uL (4.60-5.80); Red Cell Distribution Width 14.5 % (11.0-16.0); White Blood Count 7.4 X10*3/uL (4.8-10.8)
--- NOTE | 2022-09-03 14:45 | MHC.HEMONC ---
Here for follow up with Dr Plaza. Lab draw done. States he feels ok today, but some days does not feel well. States he has pain on and off. Dr Plaza in to see pt.
[2022-09-03 15:24] LABS: Alanine Aminotransferase 10 U/L (0-40); Albumin Level 4.2 g/dL (3.5-5.0); Alkaline Phosphatase 594 U/L (39-117); Anion Gap 13 (12-20); Aspartate Amino Transferase 24 U/L (5-37); Bilirubin Total 0.4 mg/dL (0.0-1.0); Blood Urea Nitrogen 12 mg/dL (9-16); Calcium 8.8 mg/dL (8.4-10.2); Carbon Dioxide 21 mmol/L (22-29); Chloride 108 mmol/L (96-108); Creatinine Clr Calc Pharmacy 109.2; Estimated Glomerular Filt Rate > 60; Glucose Random 224 mg/dL (60-115); Potassium 4.5 mmol/L (3.3-5.1); Prostate Specific Antigen Scr 56.55 ng/mL (<0.05-4.0); Sodium 137 mmol/L (135-145); Total Protein 6.9 g/dL (6.5-8.0)
--- NOTE | 2022-09-03 16:14 | MHC.HEMONC ---
Pt here for Xgeva injection and had f/u with Dr Plaza. Calcium is 8.8. Xgeva given SubQ right upper arm. Pt toll well. Calendar given with next appointment and f/u 1 month.
--- NOTE | 2022-10-02 08:32 | P.PNHO-ONC_ITS ---
Medical Summary - Medical Summary Date of Service: 10/02/22 Chief complaint: Follow-up Medical Summary: Diagnosis: Metastatic prostate cancer March 2021 Prostate biopsy performed 06/06/2021 at [facility] revealed adenocarcinoma, [place] grade 9-10 ( 5+4;5+5) in all cores. Presented with urinary obstruction and diffuse abdominal and back pain in March 2021. CT abdomen/pelvis with contrast performed 04/14/2021 at [facility] revealed markedly distended bladder. Diffuse sclerotic bone disease concerning for metastatic disease, moderate bilateral hydroureteronephrosis secondary to bladder distention. Small bilateral pleural effusions. Bone scan performed 04/02/2021 revealed diffuse sclerotic bone lesions throughout the axial skeleton and proximal long bones. He was started on leuprolide 45 mg subQ every 6 months and bicalutamide 50 mg p.o. daily. 04/27/2021 he was started on abiraterone 1000 mg p.o. daily and prednisone [address] korey Hines. Bone scan performed 09/2021 at [facility] revealed metastatic disease involving bilate ral distal femur with focal abnormality in posterior iliac crest, distal right femur and proximal left fibula. CT chest/abdomen and pelvis with contrast in February 2022 showed no soft tissue involvement. Interval History Interval history: Patient is here in follow-up. He is taking the medication daily as prescribed. He reports increased fatigue and body aches. His appetite is stable. He denies weight loss. No chest pain or shortness of breath. No diarrhea or change in bowel habits. No headache or dizziness. He understands that his disease is progressing and is now ready to receive chemotherapy. Review of Systems - Constitutional Denies fatigue, Denies lack of energy, Reports malaise, Denies night sweats, Denies poor appetite - Cardiovascular Reports no additional cardiovascular complaints - Respiratory Reports no additional respiratory complaints - Gastrointestinal Reports no additional gastrointestinal complaints [facility] Medical History: Medical History (Last Reviewed 10/02/22 @ 08:45 by Yusra Su) Anxiety BPH (benign prostatic hyperplasia) Chronic post-traumatic stress disorder (PTSD) CTS (carpal tunnel syndrome) Depression, major Diabetes mellitus with hyperglycemia, with long-term current use of insulin Diabetic neuropathy Dyslipidemia Erectile dysfunction Essential hypertension History of nephrolithiasis History of nuclear stress test 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 [facility] prescription benzodiazepine use Obesity OCD (obsessive compulsive disorder) PTSD (post-traumatic stress disorder) Family History: Family History (Last Reviewed 10/02/22 @ 08:45 by Yusra Su) Paternal Uncle Cancer Maternal Uncle Prostate cancer Maternal Uncle Prostate cancer Family/Other Prostate cancer Maternal Grandmother Cancer of kidney Sister Skin cancer Sister Stroke Father Heart attack Surgical History: Surgical History (Last Reviewed 10/02/22 @ 08:45 by Yusra Su) No pertinent past surgical history Social History: Social History (Last Reviewed 10/02/22 @ 08:45 by Yusra Su) Living Situation History: Household Members: Significant Other Housing: House Are you a primary health care marketing manager to a significant other at home: No Do you presently have visiting nurse or other home services: No Alcohol History Details: 1. How often do you have a drink containing alcohol?: a. Never Tobacco History: Patient Tobacco Use Status: Never used Tobacco e-Cigarette/Vaping Use: Never Used Substance Use History: Use of substances other than those prescribed or required for medical reasons : No Domestic Abuse History: Have you been hit, kicked, punched, or otherwise hurt by someone within the past year? 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 Oncology Screenings - ECOG Performance Status ECOG Performance Status: 1 Home Medications and Allergies Home Medications Medication Instructions Recorded Confirmed Type cholecalciferol (vitamin D3) 50 50 mcg PO DAILY 07/31/21 10/02/22 History mcg (2,000 unit) capsule (Vitamin D3) insulin needles (disposable) 31 07/31/21 10/02/22 History leuprolide acetate (6 month) 45 mg 45 mg subcut [id number] 07/31/21 10/02/22 History (6 month) subcutaneous syringe (Eligard) [id number]-wrb-pbwwd acid 0.4 1 tab PO DAILY 07/31/21 10/02/22 History mg-lycopene 300 mcg-lutein 250 mcg tablet (Centrum Silver) insulin glargine-yfgn 100 unit/mL 40 unit subcut DAILY 01/11/22 10/02/22 History (3 mL) subcutaneous pen (Semglee (insulin glargine-yfgn) Pen) denosumab 120 mg/1.7 mL (70 mg/mL) 120 mg subcut QMONTH 04/03/22 10/02/22 History subcutaneous solution (Xgeva) glyburide 5 mg tablet 5 mg PO DAILY 07/15/22 10/02/22 History Allergies Allergy/AdvReac Type Severity Reaction Status Date / Time metformin AdvReac Intermediate vomiting Verified 08/08/22 12:54 Exam Vital signs: Vital Signs Temp 96.9 F 09/03/22 14:26 Pulse 78 09/03/22 14:26 Resp 20 09/03/22 14:26 BP 160/72 H 09/03/22 14:26 Pulse Ox 96 09/03/22 14:26 O2 Del Method 09/03/22 14:26 Weight 108.2 kg BMI result Body Mass Index 34.2 - Constitutional Present: no acute distress, average body habitus - Routine HEENT Exam Head: Present: normal inspection - Routine Neck Exam Absent: lymphadenopathy - Routine Respiratory Exam Present: CTAB. Absent: accessory muscle use - Routine Cardiovascular Exam Cardiovascular: Present: S1, S2 - Routine Abdominal Exam Present: normal bowel sounds. Absent: mass - Routine Extremities Exam Absent: calf tenderness, pedal edema - Routine Skin Exam Present: intact. Absent: cyanosis Data - Labs CBC & Chem 7: 10/02/22 08:38 10/02/22 08:38 Assessment and Plan Patient Active problem list reviewed?: Yes (1) Prostate cancer Status: Chronic Assessment and plan: 1. This is a pleasant 67-year-old male with de [place] metastatic prostate cancer, adenocarcinoma widely metastatic to bone. Initial PSA of 501. He was started on combined androgen blockade, Casodex and Lupron. He was on abiraterone 1000 mg daily along with prednisone 5 mg b.i.d from April 2021 until end of May 2022. For his symptomatic bone metastasis, he has been started on denosumab 120 mg subcu monthly. Bone scan performed 05/2022 because of rising PSA showed widespread metastatic tumor involvement with significant progression compared to September 2021. Serum testosterone less than 1 since November 2021. Patient refused chemotherapy with Taxotere. He was started on enzalutamide 160 mg once daily since 06/2022. Patient has had progressive increase in PSA since the fall of 2021. Bone scan performed worsening disease. He is now willing to start chemotherapy, he will be started on Taxotere 75 milligram/meter squared every 3 weeks. He will be scheduled for a chemotherapy teach appointment to discuss possible side effects such as neutropenia is, risk of infection, organ damage and various GI toxicities. PET scan has been ordered at this time. Follow-up in 1 month. - Time Spent With Patient Time Spent with Patient (in minutes): 20
[2022-10-02 08:42] VITALS: BP 171/77; PULSE 80; RESP 15; TEMP 36.2; O2SAT 99; BMI 34.1
[2022-10-02 08:42] LABS: MANUAL DIFF FLAG NO
[2022-10-02 08:45] LABS: Basophils Percent Auto 0.4 % (0-2); Eosinophils Absolute Auto 0.6 X10*3/uL (0.0-0.4); Eosinophils Percent Auto 8.9 % (0-4); Hematocrit 33.2 % (42.0-52.0); Hemoglobin 10.8 g/dl (14.0-18.0); Imm Gran Abs Auto 0.11 X10*3/uL (0.00-0.03); Imm Gran Pct Auto 1.6 % (0.0-0.4); Lymphocytes Absolute Auto 1.9 X10*3/uL (1.2-4.9); Lymphocytes Percent Auto 27.4 % (20-40); Mean Corpuscular HGB Conc 32.5 g/dl (31.0-36.0); Mean Corpuscular Hemoglobin 27.2 pg (27.0-33.0); Mean Corpuscular Volume 83.6 fL (80.0-98.0); Monocytes Absolute Auto 0.6 X10*3/uL (0.1-1.2); Monocytes Percent Auto 8.3 % (2-11); Neutrophils Absolute Auto 3.7 x10*3/uL (2.0-8.3); Neutrophils Percent Auto 53.4 % (45-73); Platelet Count 260 X10*3/uL (160-400); Red Blood Count 3.97 X10*6/uL (4.60-5.80); Red Cell Distribution Width 15.1 % (11.0-16.0)
--- NOTE | 2022-10-02 09:04 | MHC.HEMONCMA ---
patient seen today for followup prostate CA,VSS, labs, injections, 2 weeks.
[2022-10-02 09:21] LABS: Alanine Aminotransferase 16 U/L (0-40); Alkaline Phosphatase 814 U/L (39-117); Anion Gap 13 (12-20); Aspartate Amino Transferase 30 U/L (5-37); Bilirubin Total 0.4 mg/dL (0.0-1.0); Blood Urea Nitrogen 11 mg/dL (9-16); Calcium 8.8 mg/dL (8.4-10.2); Carbon Dioxide 21 mmol/L (22-29); Chloride 111 mmol/L (96-108); Creatinine Clr Calc Pharmacy 109.1; Estimated Glomerular Filt Rate > 60; Glucose Random 179 mg/dL (60-115); Potassium 4.5 mmol/L (3.3-5.1); Sodium 140 mmol/L (135-145); Total Protein 6.4 g/dL (6.5-8.0)
--- NOTE | 2022-10-02 11:53 | MHC.HEMONC ---
Denosumab 120mg s/c administered to left upper arm.Well tolerated. Calcium 8.8. Exam with Dr. Plaza. Plan to return in one month for follow up, injection, and chemotherapy teaching. (Taxotere).
--- NOTE | 2022-10-02 12:49 | HO.HEMONCPA ---
ISAÍAS FOR PET/CT SCAN APPROVED. AUTH#[id number]. DOS- 10/02/22 to 12/01/22. DOCUMENT SCANNED IN THE CHART
--- NOTE | 2022-10-02 13:07 | HO.HEMONCSCH ---
PET/CT scan order faxed to [facility]. Reynaldo will inform dept/ and pt, of the appt, date & time
--- NOTE | 2022-10-09 14:20 | HO.HEMONCPA ---
Addendum entered by Kathleen Summers 11/04/22 11:16: NO PA REQUIRED FOR EMEND & DOCETAXEL PER [facility] ERP ANALYST Yove.D ON 10/09/22 AT 2:15PM EST. CALL REF#[id number]. PA FOR NEULASTA IS APPROVED 6 doses/36mg total. AUTH#[id number]. DOS- 10/29/2022 to 02/25/23. DOCUMENT SCANNED IN THE CHART Original Note: NO PA REQUIRED FOR EMEND & DOCETAXEL PER [facility] ERP ANALYST Yove.D ON 10/09/22 AT 2:15PM EST. CALL REF#[id number]. PA FOR NEULASTA IS APPROVED 6 doses/36mg total. AUTH#[id number]. DOS- 10/29/2025 to 02/25/23. DOCUMENT SCANNED IN THE CHART
[2022-10-30 08:55] LABS: MANUAL DIFF FLAG NO
[2022-10-30 08:56] VITALS: BP 161/71; PULSE 86; RESP 15; TEMP 36.6; O2SAT 99; BMI 33.5
[2022-10-30 09:17] LABS: Alanine Aminotransferase 46 U/L (0-40); Albumin Level 3.8 g/dL (3.5-5.0); Alkaline Phosphatase 1250 U/L (39-117); Anion Gap 11 (12-20); Aspartate Amino Transferase 52 U/L (5-37); Bilirubin Total 0.4 mg/dL (0.0-1.0); Blood Urea Nitrogen 10 mg/dL (9-16); Calcium 8.5 mg/dL (8.4-10.2); Carbon Dioxide 22 mmol/L (22-29); Chloride 110 mmol/L (96-108); Creatinine Clr Calc Pharmacy 121.2; Estimated Glomerular Filt Rate > 60; Glucose Random 212 mg/dL (60-115); Potassium 4.3 mmol/L (3.3-5.1); Sodium 139 mmol/L (135-145); Total Protein 6.2 g/dL (6.5-8.0)
[2022-10-30 09:18] LABS: Basophils Percent Auto 0.6 % (0-2); Eosinophils Absolute Auto 0.5 X10*3/uL (0.0-0.4); Eosinophils Percent Auto 7.5 % (0-4); Hematocrit 31.7 % (42.0-52.0); Hemoglobin 10.2 g/dl (14.0-18.0); Imm Gran Abs Auto 0.26 X10*3/uL (0.00-0.03); Imm Gran Pct Auto 3.9 % (0.0-0.4); Lymphocytes Absolute Auto 1.8 X10*3/uL (1.2-4.9); Lymphocytes Percent Auto 26.3 % (20-40); Mean Corpuscular HGB Conc 32.2 g/dl (31.0-36.0); Mean Corpuscular Hemoglobin 27.1 pg (27.0-33.0); Mean Corpuscular Volume 84.1 fL (80.0-98.0); Mean Platelet Volume 8.9 fL (9.4-12.4); Monocytes Absolute Auto 0.5 X10*3/uL (0.1-1.2); Monocytes Percent Auto 7.9 % (2-11); NRBC Pct Auto 0.3 /100WBC (0.0-0.2); Neutrophils Absolute Auto 3.6 x10*3/uL (2.0-8.3); Neutrophils Percent Auto 53.8 % (45-73); Platelet Count 286 X10*3/uL (160-400); Red Blood Count 3.77 X10*6/uL (4.60-5.80); Red Cell Distribution Width 16.1 % (11.0-16.0); White Blood Count 6.7 X10*3/uL (4.8-10.8)
[2022-10-30 09:38] LABS: HBS Num1 0.52 mIU/mL (0-7.99); HBc Num1 0.14 S/CO (0.00-0.79); ~Hepatitis B Surface Antibody NONREACTIVE (Nonreactive)
[2022-10-30 09:39] LABS: HBsAGNum1 0.23 S/CO (0.00-0.99); Hepatitis B Core Antibody Nonreactive (Nonreactive); Hepatitis B Surface Antigen Negative (Negative)
--- NOTE | 2022-10-30 09:54 | MHC.HEMONCMA ---
patient seen today for followup prostate CA, VSS, chemo teach, injection, treatment, Petscan was booked today for 11/05/22 @ 11:15, fasting for 4 hrs prior and a total of 6 hrs, NPO after 7am, prior to 7am instructed to eat a high protein diet, no being around anyone or under 5 yrs of age for 8hrs after test. Patient agrees and understands instructions.
[2022-10-30] MEDS: Famotidine 20 MG TABLET PO (10:33)
[2022-10-30] MEDS: diphenhydrAMINE HCL 25 MG CAPSULE PO (10:33)
[2022-10-30] MEDS: Acetaminophen 325 MG TABLET 650 MG PO (10:33)
[2022-10-30] MEDS: Fosaprepitant Dimeglumine 150 MG in 0.9 % Sodium Chloride 145 ML 300 MG IV (10:34)
[2022-10-30] MEDS: dexAMETHasone sod phosphate/NS 12 MG/50 ML PIGGYBACK 200 MG IV (10:34)
[2022-10-30 13:17] VITALS: BP 149/75; PULSE 77; RESP 17; O2SAT 99
--- NOTE | 2022-10-30 13:38 | P.PNHO-ONC_ITS ---
Medical Summary - Medical Summary Date of Service: 10/30/22 Chief complaint: Diffuse body pains Medical Summary: Diagnosis: Metastatic prostate cancer March 2021 Prostate biopsy performed 06/06/2021 at [facility] Urology revealed adenocarcinoma, Bryan grade 9-10 ( 5+4;5+5) in all cores. Presented with urinary obstruction and diffuse abdominal and back pain in March 2021. CT abdomen/pelvis with contrast performed 04/14/2021 at [facility] revealed markedly distended bladder. Diffuse sclerotic bone disease concerning for metastatic disease, moderate bilateral hydroureteronephrosis secondary to bladder distention. Small bilateral pleural effusions. Bone scan performed 04/02/2021 revealed diffuse sclerotic bone lesions throughout the axial skeleton and proximal long bones. He was started on leuprolide 45 mg subQ every 6 months and bicalutamide 50 mg p.o. daily. 04/27/2021 he was started on abiraterone 1000 mg p.o. daily and prednisone [address] korey Hines. Bone scan performed 09/2021 at [facility] revealed metastatic disease involving bilateral distal femur with focal abnormality in posterior iliac crest, distal right femur and proximal left fibula. CT chest/abdomen and pelvis with contrast in February 2022 showed no soft tissue i nvolvement. Interval History Interval history: Patient is here in follow-up and scheduled treatment. Unfortunately he reports diffuse body aches. He has been taking Tylenol but it has not helped. He denies any fever or chills. His appetite is decreased. He denies any significant weight loss. He denies nausea or emesis. No abdominal pain or change in bowel habits. No dysuria, frequency or urgency.. Review of Systems - Constitutional Reports as per HPI, Reports fatigue, Reports poor appetite - Cardiovascular Reports no additional cardiovascular complaints - Respiratory Reports no additional respiratory complaints - Gastrointestinal Reports no additional gastrointestinal complaints [facility] Medical History: Medical History (Last Reviewed 10/30/22 @ 08:57 by Yusra Su) Anxiety BPH (benign prostatic hyperplasia) Chronic post-traumatic stress disorder (PTSD) CTS (carpal tunnel syndrome) Depression, major Diabetes mellitus with hyperglycemia, with long-term current use of insulin Diabetic neuropathy Dyslipidemia Erectile dysfunction Essential hypertension History of nephrolithiasis History of nuclear stress test 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 [facility] prescription benzodiazepine use Obesity OCD (obsessive compulsive disorder) PTSD (post-traumatic stress disorder) Family History: Family History (Last Reviewed 10/30/22 @ 08:57 by Yusra Su) Paternal Uncle Cancer Maternal Uncle Prostate cancer Maternal Uncle Prostate cancer Family/Other Prostate cancer Maternal Grandmother Cancer of kidney Sister Skin cancer Sister Stroke Father Heart attack Surgical History: Surgical History (Last Reviewed 10/30/22 @ 08:57 by Yusra Su) No pertinent past surgical history Social History: Social History (Last Reviewed 10/30/22 @ 08:57 by Yusra Su) Living Situation History: Household Members: Significant Other Housing: House Are you a primary outdoor emergency care technician to a significant other at home: No Do you presently have visiting nurse or other home services: No Alcohol History Details: 1. How often do you have a drink containing alcohol?: a. Never Tobacco History: Patient Tobacco Use Status: Never used Tobacco e-Cigarette/Vaping Use: Never Used Substance Use History: Use of substances other than those prescribed or required for medical reasons : No Domestic Abuse History: Have you been hit, kicked, punched, or otherwise hurt by someone within the past year? 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 Home Medications and Allergies Current Medications: Current Medications Acetaminophen (Acetaminophen 325 Mg Tablet) 650 mg PO ONCE GIOVANNA Stop: 10/30/22 23:59 Last Admin: 10/30/22 10:33 Dose: 650 mg Denosumab (Denosumab 120 Mg/1.7 Ml Vial) 120 mg SUBCUT ONCE GIOVANNA Stop: 10/30/22 23:59 Last Admin: 10/30/22 13:11 Dose: 120 mg Diphenhydramine HCl (Diphenhydramine Hcl 25 Mg Capsule) 25 mg PO ONCE GIOVANNA Stop: 10/30/22 23:59 Last Admin: 10/30/22 10:33 Dose: 25 mg Famotidine (Famotidine 20 Mg Tablet) 20 mg PO ONCE GIOVANNA Stop: 10/30/22 23:59 Last Admin: 10/30/22 10:33 Dose: 20 mg Heparin Sodium (Porcine) (Heparin Sodium,Porcine Flush 500 Unit/5 Ml Syringe) 500 unit IVFLUSH ONCE GIOVANNA Stop: 10/30/22 23:59 Dexamethasone Sodium Phosphate (Decadron) 12 mg in 50 mls @ 200 mls/hr IV ONCE GIOVANNA Stop: 10/30/22 23:59 Last Infusion: 10/30/22 10:49 Dose: Infused Ondansetron HCl (Zofran) 16 mg in 50 mls @ 200 mls/hr IV ONCE GIOVANNA Stop: 10/30/22 23:59 Last Infusion: 10/30/22 10:49 Dose: Infused Fosaprepitant 150 mg/ Sodium (Chloride) 150 mls @ 300 mls/hr IV ONCE GIOVANNA Stop: 10/30/22 23:59 Last Infusion: 10/30/22 11:04 Dose: Infused Docetaxel 160 mg/ Docetaxel 10 (mg/ Sodium Chloride) 258.5 mls @ 258.5 mls/hr IV ONCE GIOVANNA Stop: 10/30/22 23:59 Last Infusion: 10/30/22 12:59 Dose: Infused Home Medications Medication Instructions Recorded Confirmed Type cholecalciferol (vitamin D3) 50 50 mcg PO DAILY 07/31/21 10/30/22 History mcg (2,000 unit) capsule (Vitamin D3) insulin needles (disposable) 31 07/31/21 10/30/22 History leuprolide acetate (6 month) 45 mg 45 mg subcut [id number] 07/31/21 10/30/22 His tory (6 month) subcutaneous syringe (Eligard) aflnsdns-yle-iyalm acid 0.4 1 tab PO DAILY 07/31/21 10/30/22 History mg-lycopene 300 mcg-lutein 250 mcg tablet (Centrum Silver) insulin glargine-yfgn 100 unit/mL 40 unit subcut DAILY 01/11/22 10/30/22 History (3 mL) subcutaneous pen (Semglee (insulin glargine-yfgn) Pen) denosumab 120 mg/1.7 mL (70 mg/mL) 120 mg subcut QMONTH 04/03/22 10/30/22 History subcutaneous solution (Xgeva) glyburide 5 mg tablet 5 mg PO DAILY 07/15/22 10/30/22 History Allergies Allergy/AdvReac Type Severity Reaction Status Date / Time metformin AdvReac Intermediate vomiting Verified 08/08/22 12:54 Exam Vital signs: Vital Signs Temp 97.8 F 10/30/22 08:56 Pulse 77 10/30/22 13:17 Resp 17 10/30/22 13:17 BP 149/75 H 10/30/22 13:17 Pulse Ox 99 10/30/22 13:17 O2 Del Method 10/30/22 13:17 Intake & Output 10/29/22 10/30/22 10/30/22 18:59 06:59 18:59 Intake Total 508.5 / 508.5 Balance 508.5 / 508.5 Intake: Intake, IV Amount 508.5 / 508.5 DOCEtaxeL 160 mg DOCEtaxeL 10 258.5 / 258.5 mg In 0.9 % Sodium Chloride 250 ml @ 258.5 mls/hr IV ONCE GIOVANNA Rx#:[id number] Fosaprepitant Dimeglumine 150 150 / 150 mg In 0.9 % Sodium Chloride 145 ml @ 300 mls/hr IV ONCE GIOVANNA Rx #:[id number] Ondansetron HCL/NS 16 mg In 50 50 / 50 ml @ 200 mls/hr IV ONCE GIOVANNA Rx# :[id number] dexAMETHasone sod phosphate/NS 50 / 50 12 mg In 50 ml @ 200 mls/hr IV ONCE GIOVANNA Rx#:[id number] Other: Weight 105.9 kg Weight in Grams [id number] Weight 105.9 kg BMI result Body Mass Index 33.5 - Constitutional Present: no acute distress, average body habitus - Routine HEENT Exam Head: Present: normal inspection - Routine Neck Exam Absent: lymphadenopathy - Routine Respiratory Exam Present: CTAB. Absent: accessory muscle use - Routine Cardiovascular Exam Cardiovascular: Present: S1, S2 - Routine Abdominal Exam Present: normal bowel sounds. Absent: mass - Routine Extremities Exam Absent: calf tenderness, pedal edema - Routine Skin Exam Present: intact. Absent: cyanosis Data - Labs CBC & Chem 7: 10/30/22 08:52 10/30/22 08:52 Assessment and Plan Patient Active problem list reviewed?: Yes (1) Prostate cancer Status: Chronic Assessment and plan: 1. This is a pleasant 67-year-old male with de Devon metastatic prostate cancer, adenocarcinoma widely metastatic to bone. Initial PSA of 501. He was started on combined androgen blockade, Casodex and Lupron. He was on abiraterone 1000 mg daily along with prednisone 5 mg b.i.d from April 2021 until end of May 2022. For his symptomatic bone metastasis, he has been started on denosumab 120 mg subcu monthly. Bone scan performed 05/2022 because of rising PSA showed widespread metastatic tumor involvement with significant progression compared to September 2021. Serum testosterone less than 1 since November 2021. Patient refused chemotherapy with Taxotere. He was started on enzalutamide 160 mg once daily since 06/2022. Patient has had progressive increase in PSA since the fall of 2021. Bone scan 05/2022 showed worsening disease. He is starting chemotherapy, Taxotere 75 milligram/meter squared every 3 weeks with Neulasta support from 10/30/2022.. 2. Diffuse body pain secondary to extensive bone metastasis. He is on Tylenol which is not helping. He is being started on tramadol 50 mg every 8 hours as needed. PET scan has been ordered. Follow-up in 1 month. - Time Spent With Patient Time Spent with Patient (in minutes): 20
--- NOTE | 2022-10-30 16:56 | MHC.HEMONC ---
Chemotherapy teaching completed: Taxotere. Potential side effects including neutropenia, peripheral neuropathy, nausea&vomiting, allergic reaction etc, symptom management, and when to call clinic discussed. Reviewed schedule and cycle. Education provided. All questions and concerns addressed. Consent signed. Labs obtained and reviewed. #22 placed to right forearm- with positive blood return. Pre-medicated with Tylenol 650mg PO, Pepcid 20mg PO, Benadryl 25mg, Zofran 16mg IV, Dexamethasone 12mg IV, and Emend 150mg. Infusion well tolerated- no signs or symptoms of reaction. Instructed patient to take Prednisone 5mg PO twice daily and Dexamethasone 4mg PO BID for 2 days following chemotherapy. Patient verbalizes understanding. Encouraged patient to continue to monitor blood sugars and report high values due to steroid use. Xgeva 120mg administered to right upper arm and per Dr. Plaza Xgeva can be given every 6weeks instead of monthly. Discharge packet provided with chemotherapy instructions- patient to return tomorrow for Neulasta. Post chemo lab appts made for 11/05 and 11/13. IV removed.
[2022-10-31 13:14] VITALS: BP 117/56; PULSE 82; RESP 18; TEMP 36.6; O2SAT 98
--- NOTE | 2022-10-31 13:15 | MHC.HEMONC ---
Neulasta injection given right upper arm and tolerated well. States he had a good night after treatment yesterday. Calendar given yesterday with next appointment scheduled. Pt departed unit.
--- NOTE | 2022-11-04 11:24 | HO.HEMONCPA ---
SANDRA ON-PRO PA APPROVED UNDER AUTH#[id number]. DOS- 10/29/2022 to 02/25/23. PER [facility] CUSTOMER Bebeto CARRANZA, CLAIM IS REVIEWED UNDER J-CODE NOT ADMINISTRATION OF DRUG. CALL REF# [id number].
[2022-11-05 10:15] LABS: Hemoglobin 9.7 g/dl (14.0-18.0); Mean Corpuscular HGB Conc 32.3 g/dl (31.0-36.0); Mean Corpuscular Hemoglobin 27.2 pg (27.0-33.0); Mean Platelet Volume 9.4 fL (9.4-12.4); Platelet Count 257 X10*3/uL (160-400); Red Blood Count 3.57 X10*6/uL (4.60-5.80); Red Cell Distribution Width 15.4 % (11.0-16.0)
[2022-11-05 10:16] LABS: NRBC Pct Auto 1.3 /100WBC (0.0-0.2)
[2022-11-05 10:17] LABS: WBC ABN SCTR FOR CBC 1
[2022-11-05 10:37] LABS: Band Neutrophils Percent 10 % (3-5); Basophils Percent Manual 1 % (0-2); Lymphocytes Percent Manual 33 % (20-40); Metamyelocytes Percent 4 %; Monocytes Percent Manual 5 % (2-11); Neutrophils Percent Manual 47 % (45-73)
[2022-11-05 10:40] LABS: Ovalocytes 1+ (5-14) /OIF; Platelet Estimate NORMAL (NORMAL); Platelet Morphology Comment NORMAL; RBC Morphology NOTED
[2022-11-05 10:41] LABS: Hypochromasia 1+ (5-14) /OIF
[2022-11-05 10:52] LABS: Alanine Aminotransferase 19 U/L (0-40); Albumin Level 3.7 g/dL (3.5-5.0); Alkaline Phosphatase 738 U/L (39-117); Anion Gap 15 (12-20); Aspartate Amino Transferase 33 U/L (5-37); Bilirubin Total 0.5 mg/dL (0.0-1.0); Blood Urea Nitrogen 13 mg/dL (9-16); Calcium 8.2 mg/dL (8.4-10.2); Carbon Dioxide 21 mmol/L (22-29); Chloride 108 mmol/L (96-108); Creatinine Clr Calc Pharmacy 109.4; Estimated Glomerular Filt Rate > 60; Glucose Random 200 mg/dL (60-115); Potassium 4.5 mmol/L (3.3-5.1); Sodium 139 mmol/L (135-145)
[2022-11-05 11:29] LABS: Basophils Abs Manual 0.1 X10*3/uL (0.0-0.2); Lymphocytes Absolute Manual 2.6 X10*3/uL (1.2-4.9); Metamyelocytes Absolute 0.3 X10*3/uL; Monocytes Absolute Manual 0.4 X10*3/uL (0.1-1.2); Neutrophils Absolute Manual 4.4 X10*3/uL (2.0-8.3); White Blood Count 7.8 X10*3/uL (4.8-10.8)
[2022-11-13 09:33] LABS: Hematocrit 27.6 % (42.0-52.0); Hemoglobin 8.9 g/dl (14.0-18.0); Mean Corpuscular HGB Conc 32.2 g/dl (31.0-36.0); Mean Corpuscular Hemoglobin 27.7 pg (27.0-33.0); Red Blood Count 3.21 X10*6/uL (4.60-5.80); Red Cell Distribution Width 16.7 % (11.0-16.0); White Blood Count 15.4 X10*3/uL (4.8-10.8)
[2022-11-13 09:35] LABS: NRBC Pct Auto 2.1 /100WBC (0.0-0.2)
[2022-11-13 09:45] LABS: Alanine Aminotransferase 13 U/L (0-40); Albumin Level 3.6 g/dL (3.5-5.0); Alkaline Phosphatase 928 U/L (39-117); Anion Gap 12 (12-20); Aspartate Amino Transferase 18 U/L (5-37); Bilirubin Total 0.4 mg/dL (0.0-1.0); Blood Urea Nitrogen 10 mg/dL (9-16); Calcium 8.4 mg/dL (8.4-10.2); Carbon Dioxide 22 mmol/L (22-29); Chloride 109 mmol/L (96-108); Creatinine Clr Calc Pharmacy 119.6; Estimated Glomerular Filt Rate > 60; Glucose Random 168 mg/dL (60-115); Potassium 4.4 mmol/L (3.3-5.1); Sodium 139 mmol/L (135-145); Total Protein 5.9 g/dL (6.5-8.0)
[2022-11-13 10:15] LABS: Atypical Lymph Absolute Manual 0.2 x10*3/uL; Atypical Lymphs Percent Manual 1 % (0-6); Band Neutrophils Percent 4 % (3-5); Lymphocytes Absolute Manual 5.2 X10*3/uL (1.2-4.9); Lymphocytes Percent Manual 34 % (20-40); Metamyelocytes Absolute 0.3 X10*3/uL; Metamyelocytes Percent 2 %; Monocytes Absolute Manual 1.1 X10*3/uL (0.1-1.2); Monocytes Percent Manual 7 % (2-11); Neutrophils Absolute Manual 8.6 X10*3/uL (2.0-8.3); Neutrophils Percent Manual 52 % (45-73); Nucleated Red Blood Cells 4 /100WBC (0-0)
[2022-11-13 10:16] LABS: Ovalocytes 1+ (5-14) /OIF; RBC Morphology NOTED
[2022-11-13 10:17] LABS: Hypochromasia 1+ (5-14) /OIF; Platelet Estimate SLIGHTLY DECREASED (NORMAL); Platelet Morphology Comment NORMAL; Polychromasia 1+ (0-2) /OIF; Tear Drop Cells 1+ (0-2) /OIF
[2022-11-13 10:19] LABS: Mean Platelet Volume 9.1 fL (9.4-12.4); Platelet Count 155 X10*3/uL (160-400)
--- NOTE | 2022-11-13 15:40 | MHC.HEMONC ---
Post chemo labs completed and reviewed. Patient reports feeling well.
[2022-11-20 09:30] LABS: Hematocrit 29.8 % (42.0-52.0); Hemoglobin 9.3 g/dl (14.0-18.0); Mean Corpuscular HGB Conc 31.2 g/dl (31.0-36.0); Mean Corpuscular Hemoglobin 27.7 pg (27.0-33.0); Mean Corpuscular Volume 88.7 fL (80.0-98.0); Mean Platelet Volume 8.8 fL (9.4-12.4); Platelet Count 258 X10*3/uL (160-400); Red Blood Count 3.36 X10*6/uL (4.60-5.80); Red Cell Distribution Width 19.1 % (11.0-16.0); White Blood Count 11.8 X10*3/uL (4.8-10.8)
[2022-11-20 09:38] LABS: NRBC Pct Auto 1.3 /100WBC (0.0-0.2)
[2022-11-20 09:41] VITALS: BP 141/63; PULSE 85; RESP 18; TEMP 36.7; O2SAT 99; BMI 33.5
[2022-11-20 09:53] LABS: Alanine Aminotransferase 12 U/L (0-40); Albumin Level 3.8 g/dL (3.5-5.0); Alkaline Phosphatase 1185 U/L (39-117); Anion Gap 15 (12-20); Aspartate Amino Transferase 15 U/L (5-37); Bilirubin Total 0.4 mg/dL (0.0-1.0); Blood Urea Nitrogen 12 mg/dL (9-16); Calcium 8.1 mg/dL (8.4-10.2); Carbon Dioxide 20 mmol/L (22-29); Chloride 108 mmol/L (96-108); Estimated Glomerular Filt Rate > 60; Glucose Random 230 mg/dL (60-115); Potassium 4.7 mmol/L (3.3-5.1); Sodium 138 mmol/L (135-145); Total Protein 6.1 g/dL (6.5-8.0)
[2022-11-20 09:57] LABS: Band Neutrophils Percent 5 % (3-5); Lymphocytes Absolute Manual 1.5 X10*3/uL (1.2-4.9); Lymphocytes Percent Manual 13 % (20-40); Monocytes Absolute Manual 0.1 X10*3/uL (0.1-1.2); Monocytes Percent Manual 1 % (2-11); Myelocytes Absolute 0.1 X10*/uL; Myelocytes Percent 1 %; Neutrophils Percent Manual 80 % (45-73)
[2022-11-20 10:00] LABS: RBC Morphology NOTED
[2022-11-20 10:01] LABS: Burr Cells 2+ (3-5) /OIF; Tear Drop Cells 2+ (3-5) /OIF
[2022-11-20 10:02] LABS: Platelet Estimate NORMAL (NORMAL); Polychromasia 2+ (3-5) /OIF
[2022-11-20 10:03] LABS: Macrocytosis 1+ (5-14) /OIF; Platelet Morphology Comment NORMAL
[2022-11-20] MEDS: Acetaminophen 325 MG TABLET 650 MG PO (10:39)
[2022-11-20] MEDS: Famotidine 20 MG TABLET PO (10:39)
[2022-11-20] MEDS: diphenhydrAMINE HCL 25 MG CAPSULE PO (10:39)
[2022-11-20] MEDS: dexAMETHasone sod phosphate 12 MG in 0.9 % Sodium Chloride 50 ML 212 MG IV (11:14)
[2022-11-20] MEDS: Fosaprepitant Dimeglumine 150 MG in 0.9 % Sodium Chloride 145 ML 300 MG IV (11:16)
[2022-11-20] MEDS: Pegfilgrastim Onpro 6 MG/0.6 ML SYR.W..INJ SUBCUT (13:30)
--- NOTE | 2022-11-20 14:09 | MHC.HEMONC ---
C2: TAXOTERE. Labs obtained and reviewed. Patient denies side effects-only reports slight fatigue. #22 placed to left forearm- with positive blood return. Pre-medicated with Tylenol 650mg PO, Pepcid 20mg PO, Benadryl 25mg, Zofran 16mg IV, Dexamethasone 12mg IV, and Emend 150mg. Infusion well tolerated- no signs or symptoms of reaction. Instructed patient to take Prednisone 5mg PO twice daily and Dexamethasone 4mg PO BID for 2 days following chemotherapy. Patient verbalizes understanding. Neulasta on Pro applied to left upper arm. Instructions given on removal and how to check if device is properly functioning. Approx removal time at 28hours- 5:30pm. (medication will be given at 27hours over 45 minutes) Discharge packet provided. Per Dr. Plaza patient does not need to return for weekly labs unless feeling ill. IV removed. Exam with Dr. Plaza scheduled with next chemotherapy.
--- NOTE | 2022-12-11 08:59 | HE.ONCSEC ---
Addendum entered by Cecy Davis 12/11/22 09:02: Transportation called and Ed will be able to keep appts today but will be late 15-20 min late. Original Note: rec'd call regarding Ed and transportation. They are unsure if they can get him transportation today. Will call Oncology as soon as they know if he will have transportation today.
[2022-12-11 09:44] LABS: MANUAL DIFF FLAG NO
[2022-12-11 09:49] LABS: Basophils Absolute Auto 0.1 X10*3/uL (0.0-0.2); Basophils Percent Auto 0.7 % (0-2); Eosinophils Absolute Auto 0.1 X10*3/uL (0.0-0.4); Eosinophils Percent Auto 0.8 % (0-4); Hematocrit 27.4 % (42.0-52.0); Hemoglobin 8.4 g/dl (14.0-18.0); Imm Gran Abs Auto 0.25 X10*3/uL (0.00-0.03); Imm Gran Pct Auto 2.9 % (0.0-0.4); Lymphocytes Absolute Auto 1.3 X10*3/uL (1.2-4.9); Lymphocytes Percent Auto 14.8 % (20-40); Mean Corpuscular HGB Conc 30.7 g/dl (31.0-36.0); Mean Corpuscular Hemoglobin 27.9 pg (27.0-33.0); Mean Platelet Volume 8.8 fL (9.4-12.4); Monocytes Absolute Auto 0.6 X10*3/uL (0.1-1.2); NRBC Pct Auto 0.7 /100WBC (0.0-0.2); Neutrophils Absolute Auto 6.3 x10*3/uL (2.0-8.3); Neutrophils Percent Auto 73.8 % (45-73); Platelet Count 290 X10*3/uL (160-400); Red Blood Count 3.01 X10*6/uL (4.60-5.80); Red Cell Distribution Width 19.3 % (11.0-16.0); White Blood Count 8.5 X10*3/uL (4.8-10.8)
[2022-12-11 09:58] VITALS: BP 137/65; PULSE 108; RESP 12; TEMP 36.4; O2SAT 99; BMI 32.9
[2022-12-11 10:05] LABS: Alanine Aminotransferase 8 U/L (0-40); Albumin Level 3.8 g/dL (3.5-5.0); Alkaline Phosphatase 529 U/L (39-117); Anion Gap 12 (12-20); Aspartate Amino Transferase 17 U/L (5-37); Bilirubin Total 0.3 mg/dL (0.0-1.0); Blood Urea Nitrogen 12 mg/dL (9-16); Carbon Dioxide 20 mmol/L (22-29); Chloride 110 mmol/L (96-108); Creatinine Clr Calc Pharmacy 111.3; Estimated Glomerular Filt Rate > 60; Glucose Random 277 mg/dL (60-115); Potassium 4.4 mmol/L (3.3-5.1); Sodium 138 mmol/L (135-145); Total Protein 5.9 g/dL (6.5-8.0)
[2022-12-11] MEDS: Famotidine 20 MG TABLET PO (10:31)
[2022-12-11] MEDS: Acetaminophen 325 MG TABLET 650 MG PO (10:31)
[2022-12-11] MEDS: diphenhydrAMINE HCL 25 MG CAPSULE PO (10:31)
[2022-12-11] MEDS: dexAMETHasone sod phosphate 12 MG in 0.9 % Sodium Chloride 50 ML 212 MG IV (10:31)
--- NOTE | 2022-12-11 11:09 | P.PNHO-ONC_ITS ---
Medical Summary - Medical Summary Date of Service: 12/11/22 Chief complaint: Follow-up Medical Summary: Diagnosis: Metastatic prostate cancer March 2021 Prostate biopsy performed 06/06/2021 at [facility] Urology revealed adenocarcinoma, Mays grade 9-10 ( 5+4;5+5) in all cores. Presented with urinary obstruction and diffuse abdominal and back pain in March 2021. CT abdomen/pelvis with contrast performed 04/14/2021 at [facility] revealed markedly distended bladder. Diffuse sclerotic bone disease concerning for metastatic disease, moderate bilateral hydroureteronephrosis secondary to bladder distention. Small bilateral pleural effusions. Bone scan performed 04/02/2021 revealed diffuse sclerotic bone lesions throughout the axial skeleton and proximal long bones. He was started on leuprolide 45 mg subQ every 6 months and bicalutamide 50 mg p.o. daily. 04/27/2021 he was started on abiraterone 1000 mg p.o. daily and prednisone [address] korey Hines. Bone scan performed 09/2021 at [facility] revealed metastatic disease involving bilate ral distal femur with focal abnormality in posterior iliac crest, distal right femur and proximal left fibula. CT chest/abdomen and pelvis with contrast in February 2022 showed no soft tissue involvement. Bone scan performed 05/2022 because of rising PSA showed widespread metastatic tumor involvement with significant progression compared to September 2021. Serum testosterone less than 1 since November 2021. Patient refused chemotherapy with Taxotere. He was started on enzalutamide 160 mg once daily since 06/2022. Interval History Interval history: Patient is here in follow-up and scheduled treatment. He is doing much better. He is tolerating treatment well. He denies nausea, emesis, abdominal discomfort, cough or shortness of breath. He denies any leg swelling or skin changes. He is eating well and denies any fever or chills. Review of Systems - Constitutional Reports as per HPI, Denies fatigue, Denies malaise, Denies night sweats, Denies poor appetite, Denies weight gain, Denies weight loss - Cardiovascular Reports no additional cardiovascular complaints - Respiratory Reports no additional respiratory complaints - Gastrointestinal Reports no additional gastrointestinal complaints [facility] Medical History: Medical History (Last Reviewed 10/30/22 @ 08:57 by Yusra Su) Anxiety BPH (benign prostatic hyperplasia) Chronic post-traumatic stress disorder (PTSD) CTS (carpal tunnel syndrome) Depression, major Diabetes mellitus with hyperglycemia, with long-term current use of insulin Diabetic neuropathy Dyslipidemia Erectile dysfunction Essential hypertension History of nephrolithiasis History of nuclear stress test 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 [facility] prescription benzodiazepine use Obesity OCD (obsessive compulsive disorder) PTSD (post-traumatic stress disorder) Family History: Family History (Last Reviewed 10/30/22 @ 08:57 by Yusra Su) Paternal Uncle Cancer Maternal Uncle Prostate cancer Maternal Uncle Prostate cancer Family/Other Prostate cancer Maternal Grandmother Cancer of kidney Sister Skin cancer Sister Stroke Father Heart attack Surgical History: Surgical History (Last Reviewed 10/30/22 @ 08:57 by Yusra Su) No pertinent past surgical history Social History: Social History (Last Reviewed 10/30/22 @ 08:57 by Yusra Su) Living Situation History: Household Members: Significant Other Housing: House Are you a primary physician primary care sports medicine to a significant other at home: No Do you presently have visiting nurse or other home services: No Alcohol History Details: 1. How often do you have a drink containing alcohol?: a. Never Tobacco History: Patient Tobacco Use Status: Never used Tobacco e-Cigarette/Vaping Use: Never Used Substance Use History: Use of substances other than those prescribed or required for medical reasons : No Domestic Abuse History: Have you been hit, kicked, punched, or otherwise hurt by someone within the past year? 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 Oncology Screenings - ECOG Performance Status ECOG Performance Status: 1 Home Medications and Allergies Current Medications: Current Medications Acetaminophen (Acetaminophen 325 Mg Tablet) 650 mg PO ONCE GIOVANNA Stop: 12/11/22 23:59 Last Admin: 12/11/22 10:31 Dose: 650 mg Denosumab (Denosumab 120 Mg/1.7 Ml Vial) 120 mg SUBCUT ONCE GIOVANNA Stop: 12/11/22 23:59 Diphenhydramine HCl (Diphenhydramine Hcl 25 Mg Capsule) 25 mg PO ONCE GIOVANNA Stop: 12/11/22 23:59 Last Admin: 12/11/22 10:31 Dose: 25 mg Famotidine (Famotidine 20 Mg Tablet) 20 mg PO ONCE GIOVANNA Stop: 12/11/22 23:59 Last Admin: 12/11/22 10:31 Dose: 20 mg Heparin Sodium (Porcine) (Heparin Sodium,Porcine Flush 500 Unit/5 Ml Syringe) 500 unit IVFLUSH ONCE GIOVANNA Stop: 12/11/22 23:59 Ondansetron HCl (Zofran) 16 mg in 50 mls @ 200 mls/hr IV ONCE GIOVANNA Stop: 12/11/22 23:59 Last Admin: 12/11/22 10:40 Dose: 200 mls/hr Fosaprepitant 150 mg/ Sodium (Chloride) 150 mls @ 300 mls/hr IV ONCE GIOVANNA Stop: 12/11/22 23:59 Docetaxel 160 mg/ Docetaxel 10 (mg/ Sodium Chloride) 258.5 mls @ 258.5 mls/hr IV ONCE GIOVANNA Stop: 12/11/22 23:59 Home Medications Medication Instructions Recorded Confirmed Type cholecalciferol (vitamin D3) 50 50 mcg PO DAILY 07/31/21 11/20/22 History mcg (2,000 unit) capsule (Vitamin D3) insulin needles (disposable) 31 07/31/21 10/30/22 History leuprolide acetate (6 month) 45 mg 45 mg subcut [id number] 07/31/21 11/20/22 History (6 month) subcutaneous syringe (Eligard) lpsqztzq-txa-redzr acid 0.4 1 tab PO DAILY 07/31/21 11/20/22 History mg-lycopene 300 mcg-lutein 250 mcg tablet (Centrum Silver) denosumab 120 mg/1.7 mL (70 mg/mL) 120 mg subcut QMONTH 04/03/22 11/20/22 History subcutaneous solution (Xgeva) glyburide 5 mg tablet 5 mg PO DAILY 07/15/22 11/20/22 History gabapentin 600 mg tablet 600 mg PO BEDTIME 11/20/22 11/20/22 History insulin glargine-yfgn 100 unit/mL unit subcut 11/20/22 11/20/22 History (3 mL) subcutaneous pen (Semglee (insulin glargine-yfgn) Pen) sertraline 50 mg tablet 1 tab PO DAILY 11/20/22 11/20/22 History Allergies Allergy/AdvReac Type Severity Reaction Status Date / Time metformin AdvReac Intermediate vomiting Verified 08/08/22 12:54 Exam Vital signs: Vital Signs Temp 97.6 F 12/11/22 09:58 Pulse 108 H 12/11/22 09:58 Resp 12 12/11/22 09:58 BP 137/65 12/11/22 09:58 Pulse Ox 99 12/11/22 09:58 O2 Del Method 12/11/22 09:58 Intake & Output 12/10/22 12/11/22 12/11/22 18:59 06:59 18:59 Other: Weight 104.2 kg [place] Weight in Grams [id number] Weight 104.2 kg BMI result Body Mass Index 32.9 - Constitutional Present: no acute distress, average body habitus - Routine HEENT Exam Head: Present: normal inspection - Routine Neck Exam Absent: lymphadenopathy - Routine Respiratory Exam Present: CTAB. Absent: accessory muscle use - Routine Cardiovascular Exam Cardiovascular: Present: S1, S2 - Routine Abdominal Exam Present: normal bowel sounds. Absent: mass - Routine Extremities Exam Absent: calf tenderness, pedal edema - Routine Skin Exam Present: intact. Absent: cyanosis Data - Labs CBC & Chem 7: 12/11/22 09:41 12/11/22 09:41 Assessment and Plan Patient Active problem list reviewed?: Yes (1) Prostate cancer Status: Chronic Assessment and plan: 1. This is a pleasant 67-year-old male with de Devon metastatic prostate cancer, adenocarcinoma widely metastatic to bone. Initial PSA of 501. He was started on combined androgen blockade, Casodex and Lupron. He was on abiraterone 1000 mg daily along with prednisone 5 mg b.i.d from April 2021 until end of May 2022. For his symptomatic bone metastasis, he has been started on denosumab 120 mg subcu monthly. He was on enzalutamide 160 mg once daily from 06/2022 until 10/2022 Patient has had progressive increase in PSA since the fall of 2021. Bone scan 05/2022 showed worsening disease. He started chemotherapy, Taxotere 75 milligram/meter squared every 3 weeks with Neulasta support from 10/30/2022.. He is tolerating it well. Alkaline phosphatase level is trending down. Submit PSA level. 2. Diffuse body pain secondary to extensive bone metastasis. He is on Tylenol which is not helping. He is being started on tramadol 50 mg every 8 hours as needed. Follow-up in 1 month. - Time Spent With Patient Time Spent with Patient (in minutes): 15
[2022-12-11] MEDS: Fosaprepitant Dimeglumine 150 MG in 0.9 % Sodium Chloride 145 ML 300 MG IV (11:16)
[2022-12-11] MEDS: Pegfilgrastim Onpro 6 MG/0.6 ML SYR.W..INJ SUBCUT (13:04)
[2023-01-01 08:50] LABS: MANUAL DIFF FLAG NO
[2023-01-01 09:02] LABS: Basophils Absolute Auto 0.1 X10*3/uL (0.0-0.2); Basophils Percent Auto 0.5 % (0-2); Eosinophils Absolute Auto 0.1 X10*3/uL (0.0-0.4); Eosinophils Percent Auto 1.5 % (0-4); Hematocrit 28.3 % (42.0-52.0); Hemoglobin 8.5 g/dl (14.0-18.0); Imm Gran Abs Auto 0.21 X10*3/uL (0.00-0.03); Imm Gran Pct Auto 2.2 % (0.0-0.4); Lymphocytes Absolute Auto 1.6 X10*3/uL (1.2-4.9); Lymphocytes Percent Auto 16.4 % (20-40); Mean Corpuscular Hemoglobin 27.8 pg (27.0-33.0); Mean Corpuscular Volume 92.5 fL (80.0-98.0); Mean Platelet Volume 8.8 fL (9.4-12.4); Monocytes Absolute Auto 0.8 X10*3/uL (0.1-1.2); Monocytes Percent Auto 8.4 % (2-11); NRBC Pct Auto 0.4 /100WBC (0.0-0.2); Neutrophils Absolute Auto 6.7 x10*3/uL (2.0-8.3); Platelet Count 281 X10*3/uL (160-400); Red Blood Count 3.06 X10*6/uL (4.60-5.80); Red Cell Distribution Width 19.9 % (11.0-16.0); White Blood Count 9.5 X10*3/uL (4.8-10.8)
[2023-01-01 09:17] LABS: Alanine Aminotransferase 9 U/L (0-40); Albumin Level 3.9 g/dL (3.5-5.0); Alkaline Phosphatase 407 U/L (39-117); Anion Gap 15 (12-20); Aspartate Amino Transferase 18 U/L (5-37); Bilirubin Total 0.4 mg/dL (0.0-1.0); Blood Urea Nitrogen 16 mg/dL (9-16); Carbon Dioxide 19 mmol/L (22-29); Chloride 107 mmol/L (96-108); Creatinine Clr Calc Pharmacy 103.5; Estimated Glomerular Filt Rate > 60; Glucose Random 219 mg/dL (60-115); Potassium 5.2 mmol/L (3.3-5.1); Sodium 136 mmol/L (135-145)
[2023-01-01 09:18] VITALS: BP 130/60; PULSE 103; TEMP 35.9; O2SAT 100; BMI 32.8
[2023-01-01] MEDS: diphenhydrAMINE HCL 25 MG CAPSULE PO (09:28)
[2023-01-01] MEDS: Acetaminophen 325 MG TABLET 650 MG PO (09:28)
[2023-01-01] MEDS: Famotidine 20 MG TABLET PO (09:29)
[2023-01-01] MEDS: dexAMETHasone sod phosphate/NS 12 MG/50 ML PIGGYBACK 200 MG IV (09:29)
[2023-01-01] MEDS: Fosaprepitant Dimeglumine 150 MG in 0.9 % Sodium Chloride 145 ML 300 MG IV (10:16)
[2023-01-01 10:59] LABS: Prostate Specific Antigen 131.74 ng/mL (<0.05-4.0)
[2023-01-01] MEDS: Pegfilgrastim Onpro 6 MG/0.6 ML SYR.W..INJ SUBCUT (12:12)
--- NOTE | 2023-01-01 13:44 | MHC.HEMONC ---
Here for c4 taxotere and neulasta onpro. Labs drawn and reviewed. OK to proceed today. #22 IV placed in right forearm by Holly RN. Premeds and chemo tolerated well. Neulasta ONPRO applied to left upper arm. Pt aware of next appt. Discharge packet provided.
[2023-01-22 09:02] LABS: MANUAL DIFF FLAG NO
[2023-01-22 09:03] VITALS: BP 100/52; PULSE 86; RESP 18; TEMP 36.4; O2SAT 100; BMI 32.5
[2023-01-22 09:22] LABS: Basophils Absolute Auto 0.1 X10*3/uL (0.0-0.2); Basophils Percent Auto 0.7 % (0-2); Eosinophils Absolute Auto 0.2 X10*3/uL (0.0-0.4); Eosinophils Percent Auto 3.2 % (0-4); Hematocrit 26.5 % (42.0-52.0); Hemoglobin 8.1 g/dl (14.0-18.0); Imm Gran Abs Auto 0.15 X10*3/uL (0.00-0.03); Lymphocytes Percent Auto 13.6 % (20-40); Mean Corpuscular HGB Conc 30.6 g/dl (31.0-36.0); Mean Corpuscular Hemoglobin 28.5 pg (27.0-33.0); Mean Corpuscular Volume 93.3 fL (80.0-98.0); Mean Platelet Volume 8.9 fL (9.4-12.4); Monocytes Absolute Auto 0.7 X10*3/uL (0.1-1.2); Monocytes Percent Auto 9.3 % (2-11); NRBC Pct Auto 0.3 /100WBC (0.0-0.2); Neutrophils Absolute Auto 5.4 x10*3/uL (2.0-8.3); Neutrophils Percent Auto 71.2 % (45-73); Platelet Count 273 X10*3/uL (160-400); Red Blood Count 2.84 X10*6/uL (4.60-5.80); Red Cell Distribution Width 19.3 % (11.0-16.0); White Blood Count 7.6 X10*3/uL (4.8-10.8)
[2023-01-22 09:30] LABS: Alanine Aminotransferase 10 U/L (0-40); Albumin Level 3.7 g/dL (3.5-5.0); Alkaline Phosphatase 372 U/L (39-117); Anion Gap 14 (12-20); Aspartate Amino Transferase 26 U/L (5-37); Bilirubin Total 0.4 mg/dL (0.0-1.0); Blood Urea Nitrogen 22 mg/dL (9-16); Calcium 8.3 mg/dL (8.4-10.2); Carbon Dioxide 20 mmol/L (22-29); Chloride 107 mmol/L (96-108); Creatinine Clr Calc Pharmacy 96.1; Estimated Glomerular Filt Rate > 60; Glucose Random 224 mg/dL (60-115); Potassium 5.1 mmol/L (3.3-5.1); Sodium 136 mmol/L (135-145); Total Protein 5.8 g/dL (6.5-8.0)
[2023-01-22] MEDS: Acetaminophen 325 MG TABLET 650 MG PO (10:02)
[2023-01-22] MEDS: Famotidine 20 MG TABLET PO (10:03)
[2023-01-22] MEDS: diphenhydrAMINE HCL 25 MG CAPSULE PO (10:03)
[2023-01-22] MEDS: dexAMETHasone sod phosphate/NS 12 MG/50 ML PIGGYBACK 200 MG IV (10:06)
[2023-01-22] MEDS: Fosaprepitant Dimeglumine 150 MG in 0.9 % Sodium Chloride 145 ML 300 MG IV (10:10)
--- NOTE | 2023-01-22 10:25 | P.PNHO-ONC_ITS ---
Medical Summary - Medical Summary Date of Service: 01/22/23 Chief complaint: Follow-up and scheduled treatment Primary Care Provider: Tish Rivera MD Medical Summary: Diagnosis: Metastatic prostate cancer March 2021 Prostate biopsy performed 06/06/2021 at [facility] revealed adenocarcinoma, Bryan grade 9-10 ( 5+4;5+5) in all cores. Presented with urinary obstruction and diffuse abdominal and back pain in March 2021. CT abdomen/pelvis with contrast performed 04/14/2021 at [facility] revealed markedly distended bladder. Diffuse sclerotic bone disease concerning for metastatic disease, moderate bilateral hydroureteronephrosis secondary to bladder distention. Small bilateral pleural effusions. Bone scan performed 04/02/2021 revealed diffuse sclerotic bone lesions throughout the axial skeleton and proximal long bones. He was started on leuprolide 45 mg subQ every 6 months and bicalutamide 50 mg p.o. daily. 04/27/2021 he was started on abiraterone 1000 mg p.o. daily and prednisone [address] korey Hines. Bone scan performed 09/2021 at [facility] revealed metastatic disease involving bilat eral distal femur with focal abnormality in posterior iliac crest, distal right femur and proximal left fibula. CT chest/abdomen and pelvis with contrast in February 2022 showed no soft tissue involvement. Bone scan performed 05/2022 because of rising PSA showed widespread metastatic tumor involvement with significant progression compared to September 2021. Serum testosterone less than 1 since November 2021. Patient refused chemotherapy with Taxotere. He was started on enzalutamide 160 mg once daily since 06/2022. Interval History Interval history: Patient is here in follow-up and scheduled treatment. He is doing much better. He is tolerating treatment well. He denies nausea, emesis, abdominal discomfort, cough or shortness of breath. He denies any leg swelling or skin changes. He is eating well and denies any fever or chills. Review of Systems - Constitutional Reports as per HPI, Denies lack of energy, Denies malaise, Denies weight loss - Cardiovascular Reports no additional cardiovascular complaints - Respiratory Reports no additional respiratory complaints - Gastrointestinal Reports no additional gastrointestinal complaints [facility] Medical History: Medical History (Last Reviewed 10/30/22 @ 08:57 by Yusra Su) Anxiety BPH (benign prostatic hyperplasia) Chronic post-traumatic stress disorder (PTSD) CTS (carpal tunnel syndrome) Depression, major Diabetes mellitus with hyperglycemia, with long-term current use of insulin Diabetic neuropathy Dyslipidemia Erectile dysfunction Essential hypertension History of nephrolithiasis History of nuclear stress test 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 Obesity OCD (obsessive compulsive disorder) PTSD (post-traumatic stress disorder) Family History: Family History (Last Reviewed 10/30/22 @ 08:57 by Yusra Su) Paternal Uncle Cancer Maternal Uncle Prostate cancer Maternal Uncle Prostate cancer Family/Other Prostate cancer Maternal Grandmother Cancer of kidney Sister Skin cancer Sister Stroke Father Heart attack Surgical History: Surgical History (Last Reviewed 10/30/22 @ 08:57 by Yusra Su) No pertinent past surgical history Social History: Social History (Last Reviewed 10/30/22 @ 08:57 by Yusra Su) Living Situation History: Household Members: Significant Other Housing: House Are you a primary resident care provider to a significant other at home: No Do you presently have visiting nurse or other home services: No Alcohol History Details: 1. How often do you have a drink containing alcohol?: a. Never Tobacco History: Patient Tobacco Use Status: Never used Tobacco e-Cigarette/Vaping Use: Never Used Substance Use History: Use of substances other than those prescribed or required for medical reasons : No Domestic Abuse History: Have you been hit, kicked, punched, or otherwise hurt by someone within the past year? 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 Home Medications and Allergies Current Medications: Current Medications Acetaminophen (Acetaminophen 325 Mg Tablet) 650 mg PO ONCE GIOVANNA Stop: 01/22/23 23:59 Last Admin: 01/22/23 10:02 Dose: 650 mg Denosumab (Denosumab 120 Mg/1.7 Ml Vial) 120 mg SUBCUT ONCE GIOVANNA Stop: 01/22/23 23:59 Last Admin: 01/22/23 10:14 Dose: 120 mg Diphenhydramine HCl (Diphenhydramine Hcl 25 Mg Capsule) 25 mg PO ONCE GIOVANNA Stop: 01/22/23 23:59 Last Admin: 01/22/23 10:03 Dose: 25 mg Famotidine (Famotidine 20 Mg Tablet) 20 mg PO ONCE GIOVANNA Stop: 01/22/23 23:59 Last Admin: 01/22/23 10:03 Dose: 20 mg Heparin Sodium (Porcine) (Heparin Sodium,Porcine Flush 500 Unit/5 Ml Syringe) 500 unit IVFLUSH ONCE GIOVANNA Stop: 01/22/23 23:59 Dexamethasone Sodium Phosphate (Decadron) 12 mg in 50 mls @ 200 mls/hr IV ONCE GIOVANNA Stop: 01/22/23 23:59 Last Admin: 01/22/23 10:06 Dose: 200 mls/hr Ondansetron HCl (Zofran) 16 mg in 50 mls @ 200 mls/hr IV ONCE GIOVANNA Stop: 01/22/23 23:59 Last Admin: 01/22/23 10:06 Dose: 200 mls/hr Fosaprepitant 150 mg/ Sodium (Chloride) 150 mls @ 300 mls/hr IV ONCE GIOVANNA Stop: 01/22/23 23:59 Docetaxel 160 mg/ Docetaxel 10 (mg/ Sodium Chloride) 258.5 mls @ 258.5 mls/hr IV ONCE GIOVANNA Stop: 01/22/23 23:59 Pegfilgrastim (Pegfilgrastim Onpro 6 Mg/0.6 Ml Syr.W..Inj) 6 mg SUBCUT ONCE GIOVANNA Stop: 01/22/23 23:59 Home Medications Medication Instructions Recorded Confirmed Type cholecalciferol (vitamin D3) 50 50 mcg PO DAILY 07/31/21 11/20/22 History mcg (2,000 unit) capsule (Vitamin D3) insulin needles (disposable) 31 07/31/21 10/30/22 History leuprolide acetate (6 month) 45 mg 45 mg subcut [id number] 07/31/21 11/20/22 History (6 month) subcutaneous syringe (Eligard) cpwexzvi-mkq-khzax acid 0.4 1 tab PO DAILY 07/31/21 11/20/22 History mg-lycopene 300 mcg-lutein 250 mcg tablet (Centrum Silver) denosumab 120 mg/1.7 mL (70 mg/mL) 120 mg subcut QMONTH 04/03/22 11/20/22 History subcutaneous solution (Xgeva) insulin glargine-yfgn 100 unit/mL unit subcut 11/20/22 11/20/22 History (3 mL) subcutaneous pen (Semglee (insulin glargine-yfgn) Pen) sertraline 50 mg tablet 1 tab PO DAILY 11/20/22 11/20/22 History Allergies Allergy/AdvReac Type Severity Reaction Status Date / Time metformin AdvReac Intermediate vomiting Verified 08/08/22 12:54 Exam Vital signs: Vital Signs Temp 97.6 F 01/22/23 09:03 Pulse 86 01/22/23 09:03 Resp 18 01/22/23 09:03 BP 100/52 L 01/22/23 09:03 Pulse Ox 100 01/22/23 09:03 O2 Del Method Room Air 01/22/23 09:03 Intake & Output 01/21/23 01/22/23 01/22/23 18:59 06:59 18:59 Other: Weight 102.8 kg Weight in Grams [id number] Weight 102.8 kg BMI result Body Mass Index 32.5 - Constitutional Present: no acute distress, average body habitus - Routine HEENT Exam Head: Present: normal inspection - Routine Neck Exam Absent: lymphadenopathy - Routine Respiratory Exam Present: CTAB. Absent: accessory muscle use - Routine Cardiovascular Exam Cardiovascular: Present: S1, S2 - Routine Abdominal Exam Present: normal bowel sounds. Absent: mass - Routine Extremities Exam Absent: calf tenderness, pedal edema - Routine Skin Exam Present: intact. Absent: cyanosis Data - Labs CBC & Chem 7: 01/22/23 09:00 01/22/23 09:00 Assessment and Plan Patient Active problem list reviewed?: Yes (1) Prostate cancer Status: Chronic Assessment and plan: 1. This is a pleasant 67-year-old male with de [place] metastatic prostate cancer, adenocarcinoma widely metastatic to bone. Initial PSA of 501. He was started on combined androgen blockade, Casodex and Lupron. He was on abiraterone 1000 mg daily along with prednisone 5 mg b.i.d from April 2021 until end of May 2022. For his symptomatic bone metastasis, he has been started on denosumab 120 mg subcu monthly. He was on enzalutamide 160 mg once daily from 06/2022 until 10/2022 Patient has had progressive increase in PSA since the fall of 2021. Bone scan showed worsening disease. He started chemotherapy, Taxotere 75 milligram/meter squared every 3 weeks with Neulasta support from 10/30/2022.. He is tolerating it well. Alkaline phosphatase level is trending down. Submit PSA level. 2. Diffuse body pain secondary to extensive bone metastasis. He is on Tylenol which is not helping. He is being started on tramadol 50 mg every 8 hours as ne eded. His pain is much better controlled. Follow-up in 1 month. - Time Spent With Patient Time Spent with Patient (in minutes): 15
[2023-01-22 11:50] LABS: Prostate Specific Antigen 292.77 ng/mL (<0.05-4.0)
--- NOTE | 2023-01-22 12:03 | HO.HEMONCPA ---
Addendum entered by Kathleen Summers 02/14/23 10:06: ISAÍAS FOR XGEVA APPROVED. AUTH#[id number]. DOS- 01/22/23 to 01/21/2024. DOCUMENT SCANNED IN THE CHART Original Note: ISAÍAS FOR XGEVA FOR CONTINUATION OF THERAPY REQUESTED. TRACKING #[id number] . Awaiting decision
[2023-01-22] MEDS: Pegfilgrastim Onpro 6 MG/0.6 ML SYR.W..INJ SUBCUT (12:48)
--- NOTE | 2023-01-22 17:12 | MHC.HEMONC ---
Pt was in today for C5D1 Docetaxel w/ Neulasta On-Pro, also Q6Week Xgeva injection and Onc f/u appt, nurse confirmed no PA needed for Docetaxel or Emend, PA is good for Neulasta On-Pro, labs drawn/reviewed, nurse entered add-on test to have PSA checked, pt's VSS, weight stable, pt reported feeling very weak and fatigued, but denied other symptoms. Nurse confirmed w/ pt he is taking Prednisone 5 mg BID and will be taking Dexamethasone 4 mg PO BID on D2-3. Nurse placed 22g PIV to pt's L FA w/ positive blood return, flushed w/ NS. Pt was admin Xgeva 120 mg SC to RUE, well-tolerated. Dr. Plaza was in to meet w/ pt, ordered for pt to have PET scan in 1 month, after his next cycle. 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 Pt was admin pre-meds: PO tylenol, PO bendaryl, po pecid, IV Emend, IV Dexamethasone, and IV Zofran. Pt received IV Docetaxel over 1 hr, tolerated well, PIV was slushed w/ NS and removed. Pt had Neulasta On-Pro on-body injector placed to L upper arm, confirmed successful needle entry, nurse reviewed w/ pt to watch for flashing green light, warned pt that injection will take place in 28 hrs time, at 16:55 tomorrow. Pt was given d/c packet, to return on 02/12 for C6. Inside Sales Executive Kathleen was given request for new PA for Xgeva injection, as pt's PA on 01/01/23.
--- NOTE | 2023-01-22 17:15 | HO.HEMONCPA ---
ISAÍAS FOR PET SCAN APPROVED FOR [place] PET. AUTH#[id number]. DOS - 01/22/23 to 03/23/23. DOCUMENT SCANNED IN THE CHART.
--- NOTE | 2023-01-23 11:20 | MHC.HEMONC ---
Nurse called pt at home, informed him that his calcium levels were borderline low for the last few months, ranging from 8.0 to 8.3, nurse reiterated how his Q6week Xgeva injections can drop his calcium levels, pt said he had actually not been taking his calcium supplement for the last week or so, because he'd been a bit nauseous for a few days and they are large tablets. Nurse consulted w/ Dr. Jorge and reviewed his labs w/ her, she agreed to advise pt to increase his calcium supplementation to 500 mg TID, and to continue taking Vit D3 50 mcg once daily. Pt verbalized agreement.
--- NOTE | 2023-01-24 10:29 | MHC.HEMONC ---
Nurse called pt at home, updated him about the fact that his calcium levels must be improved, but it must be demonstrated that they have improved to obtain PA for his Q6week Xgeva/Denosumab injection. Pt was agreeable to have his CMP re-checked next 01/30/23. Nurse entered the lab order, also suggested pt may want to go to the [facility] in [place] to have them drawn, as he lives in [place]. Pt said that is what he plans to do.
--- NOTE | 2023-01-30 15:10 | MHC.HEMONC ---
Addendum entered by Carlos Lam RN 01/30/23 15:12: Nurse cancelled today's lab draw appt. Original Note: Nurse noted that pt had his blood drawn for CMP at outside [facility] clinic, Ca resulted stable at 8.3, the same result as his last lab draw, the week prior on 01/22/23. Nurse presented results to Radio Communications Mechanician Kathleen, noting that pt had claimed he would start taking calcium supplements TID as of 01/23/23.
[2023-02-12] VITALS (7 sets, daily range): BP systolic 135–147; BP diastolic 64–67; PULSE 75–96; RESP 17–18; TEMP 36.5–36.9; O2SAT 99; BMI 33.0
[2023-02-12 09:13] LABS: MANUAL DIFF FLAG NO
[2023-02-12 09:26] LABS: Basophils Percent Auto 0.5 % (0-2); Eosinophils Absolute Auto 0.2 X10*3/uL (0.0-0.4); Eosinophils Percent Auto 2.5 % (0-4); Hematocrit 26.4 % (42.0-52.0); Hemoglobin 7.8 g/dl (14.0-18.0); Imm Gran Abs Auto 0.32 X10*3/uL (0.00-0.03); Imm Gran Pct Auto 4.2 % (0.0-0.4); Lymphocytes Absolute Auto 1.4 X10*3/uL (1.2-4.9); Lymphocytes Percent Auto 18.8 % (20-40); Mean Corpuscular HGB Conc 29.5 g/dl (31.0-36.0); Mean Corpuscular Hemoglobin 28.3 pg (27.0-33.0); Mean Corpuscular Volume 95.7 fL (80.0-98.0); Mean Platelet Volume 9.3 fL (9.4-12.4); Monocytes Absolute Auto 0.8 X10*3/uL (0.1-1.2); Monocytes Percent Auto 10.3 % (2-11); NRBC Pct Auto 0.4 /100WBC (0.0-0.2); Neutrophils Absolute Auto 4.8 x10*3/uL (2.0-8.3); Neutrophils Percent Auto 63.7 % (45-73); Platelet Count 202 X10*3/uL (160-400); Red Blood Count 2.76 X10*6/uL (4.60-5.80); Red Cell Distribution Width 18.7 % (11.0-16.0); White Blood Count 7.5 X10*3/uL (4.8-10.8)
[2023-02-12 09:37] LABS: Alanine Aminotransferase 12 U/L (0-40); Albumin Level 3.8 g/dL (3.5-5.0); Alkaline Phosphatase 416 U/L (39-117); Anion Gap 13 (12-20); Aspartate Amino Transferase 28 U/L (5-37); Bilirubin Total 0.4 mg/dL (0.0-1.0); Blood Urea Nitrogen 14 mg/dL (9-16); Calcium 9.4 mg/dL (8.4-10.2); Carbon Dioxide 25 mmol/L (22-29); Chloride 108 mmol/L (96-108); Creatinine Clr Calc Pharmacy 92.8; Estimated Glomerular Filt Rate > 60; Glucose Random 154 mg/dL (60-115); Potassium 5.7 mmol/L (3.3-5.1); Sodium 140 mmol/L (135-145); Total Protein 5.7 g/dL (6.5-8.0)
--- NOTE | 2023-02-12 10:50 | HO.HEMONCSCH ---
Addendum entered by Carlos Lam RN 02/19/23 12:14: Dr. Plaza was concerned whether pt was informed about his PET scan at [facility] on 03/03/23 at 5:30 pm. Nurse called pt at home, he confirmed he was aware, had been contacted and was told to come in 2 hours early at 3:30pm on the day. Addendum entered by Kathleen Summers 02/13/23 12:38: PET/CT SCAN APPT SCHEDULED ON 03/03/2023 at 5:30pm. Original Note: PET/CT SCAN APPT ORDER FAXED TO [facility] . AWAITING DATE & TIME
--- NOTE | 2023-02-12 13:53 | MHC.HEMONC ---
Here for C6 D1 treatment. States is feeling ok. Only c/o is feeling lousy right after treatment . Labs drawn and results reviewed. Hgb 7.8, reported to Dr Plaza. Pt not treated today. Plan to transfuse 2 units. Pharmacy notified. IV started right wrist with good blood return noted. Type and screen done. Consent signed. First unit infused with no s/s transfusion reaction. Pt tolerated well. Second unit infusing and tolerating well. Pt to have PET scan. PA obtained and awaiting date and time. Pt aware. Will schedule next treatment once PET done per Dr Plaza.
--- NOTE | 2023-02-12 13:58 | HO.HEMONCPA ---
PA for denosumab for continuation of therapy requested. awaiting decision.
[2023-02-19 08:47] LABS: MANUAL DIFF FLAG NO
[2023-02-19 08:56] LABS: Basophils Absolute Auto 0.1 X10*3/uL (0.0-0.2); Basophils Percent Auto 0.6 % (0-2); Eosinophils Absolute Auto 0.3 X10*3/uL (0.0-0.4); Eosinophils Percent Auto 2.8 % (0-4); Hematocrit 33.8 % (42.0-52.0); Hemoglobin 10.5 g/dl (14.0-18.0); Imm Gran Abs Auto 0.11 X10*3/uL (0.00-0.03); Imm Gran Pct Auto 1.2 % (0.0-0.4); Lymphocytes Absolute Auto 1.2 X10*3/uL (1.2-4.9); Lymphocytes Percent Auto 13.9 % (20-40); Mean Corpuscular HGB Conc 31.1 g/dl (31.0-36.0); Mean Corpuscular Hemoglobin 28.8 pg (27.0-33.0); Mean Corpuscular Volume 92.9 fL (80.0-98.0); Mean Platelet Volume 9.3 fL (9.4-12.4); Monocytes Absolute Auto 0.7 X10*3/uL (0.1-1.2); Monocytes Percent Auto 8.1 % (2-11); Neutrophils Absolute Auto 6.6 x10*3/uL (2.0-8.3); Neutrophils Percent Auto 73.4 % (45-73); Platelet Count 307 X10*3/uL (160-400); Red Blood Count 3.64 X10*6/uL (4.60-5.80); Red Cell Distribution Width 16.6 % (11.0-16.0); White Blood Count 8.9 X10*3/uL (4.8-10.8)
[2023-02-19 09:11] LABS: Alanine Aminotransferase 11 U/L (0-40); Alkaline Phosphatase 383 U/L (39-117); Anion Gap 13 (12-20); Aspartate Amino Transferase 28 U/L (5-37); Bilirubin Total 0.7 mg/dL (0.0-1.0); Blood Urea Nitrogen 11 mg/dL (9-16); Calcium 8.7 mg/dL (8.4-10.2); Carbon Dioxide 21 mmol/L (22-29); Chloride 106 mmol/L (96-108); Creatinine Clr Calc Pharmacy 101.3; Estimated Glomerular Filt Rate > 60; Glucose Random 246 mg/dL (60-115); Potassium 5.2 mmol/L (3.3-5.1); Sodium 135 mmol/L (135-145); Total Protein 6.1 g/dL (6.5-8.0)
--- NOTE | 2023-02-19 09:48 | MHC.HEMONC ---
Addendum entered by Leidy Mcmahan RN 02/19/23 15:31: PSA 406.78 Mela aware. Pt has PET scan March 03. at [facility]. Original Note: Pt here for labs. Pt reports legs still feel weak. Some bruising noted on Lower arms where IV's were. Labs drawn by marine pipefitter. Results reviewed with Dr Plaza. PSA was added. HGB 10.5, PLT 16.6, K+5.2, CA 8.7. Next follow up, chemo and Denosumab on 03/05/23. Pt declined calendar. States he has one at home. Pt departed.
--- NOTE | 2023-03-03 09:39 | HO.HEMONCSCH ---
PET/CT scan scheduled at [facility] on 03/20/2023 at 11:50am.
--- NOTE | 2023-03-07 16:26 | MHC.HEMONC ---
I left message on pt voicemail to come to office to see Dr Plaza on 03/12 at 12:30. He will be booked for Denosumab same day. Chemo appt canceled for now.
--- NOTE | 2023-03-11 11:21 | MHC.HEMONC ---
Pt called me to cancel his f/u and denosumab for tomorrow stating I'm too weak . I spent 15 minutes on telephone with him trying to stress that he needs to be seen, I offered VNA and to speak with his sister or girlfriend if he prefers. He declined it all. I told him Hospice could be arranged but he said I still want treatment when I feel better . He wants to be DNR and do MOLST when he does come in. He really did not seem to want any help so I told him I will discuss with Dr Plaza tomorrow and call him on Friday to see how he is doing.
--- NOTE | 2023-03-14 11:02 | MHC.HEMONC ---
I returned message this morning to Janeth, pt sister and HCP. She wanted me to know that pt has been falling at home, not eating and sleeping a lot. We discussed my discussion with him earlier in week when he refused to come in or receive any services at home. According to Janeth, he is now in agreement that he needs help. We discussed hospice and it does seem appropriate at this time as he does not want hospitalization. He also told me he didn't want CPR. Dr Plaza in agreement. I also spoke with pt girlfriend who lives with him and she also said he needs some help. I told her to have Ed call me when he woke up if he wants to so that we could discuss Hospice but I told her I would make referral as it seems urgent due to his safety and to honor his wishes. I faxed notes and HCP (no MOLST signed yet) to [facility].
--- NOTE | 2023-03-14 13:50 | MHC.HEMONC ---
[facility] does not take pt insurance, I tried [facility] and [facility] hospice and they cannot take him. [facility] does take his insurance for Hospice and I made referral. They will put him on for Friday but sooner if they have cancellation. I told his sister she should call 911 if pt needs nursing/medical care before that time.
--- NOTE | 2023-03-14 13:57 | MHC.HEMONC ---
PET on 03/20 canceled with [facility] at pt request.
--- NOTE | 2023-03-17 10:34 | MHC.HEMONC ---
Pt now receiving hospice care from [facility].
--- NOTE | 2023-03-21 09:42 | MHC.HEMONC ---
Pt at 5:07 am per [facility]. Dr Plaza notified.
== END 2023-03-21 | disposition home or self-care (01) ==
LOC: HO.ONC 09:30
PROVIDERS: PCP Internal Medicine; Visit Provider Internal Medicine
DX: C61 Malignant neoplasm of prostate (principal); C79.51 Secondary malignant neoplasm of bone; Z79.899 Other long term (current) drug therapy; Z12.5 Encounter for screening for malignant neoplasm of prostate
CPT/HCPCS: 36415; 36430; 80053; 84153; 84403; 85007; 85025; 85027; 86704; 86706; 86850; 86900; 86901; 86923; 87340; 96366; 96367; 96372; 96375; 96377; 96413; 99204; 99214; 99215; J0897; J1100; J1453; J2405; J2506; J9171; P9016

== ENCOUNTER 2023-02-27 10:28 | Emergency (ER) | payer OTHER, SELFPAY ==
--- NOTE | ~2023-02-27 | CT_ITS ---
EXAMINATION: CT HEAD WITHOUT CONTRAST CLINICAL INFORMATION: Status post fall and hit head. COMPARISON: None available. TECHNIQUE: Contiguous axial imaging was performed from the skull base to vertex without intravenous administration of contrast. Coronal and sagittal reformatted images were obtained. This CT examination was performed using dose optimization techniques as appropriate, variously including the following: *Automated exposure control *Adjustment of mA and/or kV according to patient size (this includes techniques or standardized protocols for targeted exams where dose is matched to indication/reason for exam; i.e. extremities or head) *Use of iterative reconstruction technique DLP: 781.37 mGy-cm FINDINGS: There is a moderate right subdural hematoma with high attenuation and low-attenuation components measuring up to approximately 8 mm in width in the frontoparietal region (image 145, series 7). A smaller hemorrhage is seen on the left in the frontal parietal as well as temporal regions. Scattered frontal subarachnoid and possible intraparenchymal components are seen as well. There is associated mass effect and effacement of the sulci in the right temporal, frontal and parietal lobes. Asymmetric compression of the right lateral ventricles also seen. No significant midline shift. The posterior fossa components are unremarkable. There is a moderate-sized right posterior parietal occipital subgaleal hematoma without acute hemorrhagic components. The bony calvarium appears intact. The paranasal sinuses are clear. The bony orbits and orbital contents are unremarkable. There is hypoaeration of the right mastoid air cells including the mastoid process with opacification of several mastoid air cells. The left mastoid air cells are within normal limits. CT/CT head/brain wo IV con IMPRESSION: 1. Bilateral subdural hematomas, right greater than left with associated mass effect on the right detailed above. Small scattered frontal subarachnoid and possible intraparenchymal components are seen as well. No significant midline shift. 2. Moderate right posterior parietal occipital subgaleal hematoma without acute hemorrhagic components. 3. Hypoaeration of the right mastoid air cells with probable nonacute right mastoid effusion. This critical result was discussed with Veronica Hernández at 12:00 PM on 02/27/2023 and it was ascertained that the content and urgency of the report was understood at the time of direct communication. The patient has already been transferred.
--- NOTE | ~2023-02-27 | CT_ITS ---
EXAMINATION: CT CERVICAL SPINE WITHOUT CONTRAST CLINICAL INFORMATION: Status post fall with head trauma. COMPARISON: PET/CT scan dated 11/05/2022. TECHNIQUE: Multiple axial images of the cervical spine were obtained without the administration of intravenous contrast. Coronal and sagittal reformatted images were obtained. This CT examination was performed using dose optimization techniques as appropriate, variously including the following: *Automated exposure control *Adjustment of mA and/or kV according to patient size (this includes techniques or standardized protocols for targeted exams where dose is matched to indication/reason for exam; i.e. extremities or head) *Use of iterative reconstruction technique DLP: 535.16 mGy-cm FINDINGS: There is straightening of the normal cervical lordosis with normal spinal alignment. Mild to moderate multilevel degenerative disc disease is seen most pronounced at C6-C7 with disc space narrowing, marginal osteophyte formation and mild bilateral neural foraminal narrowing. Mild bilateral neural foraminal narrowing is seen at C4-C5 and C5-C6. A superior plate compression deformity is again seen at T1 with similar appearance. The remainder the vertebral bodies as well as the odontoid process are intact. The spinous and transverse processes are intact. Extensive sclerotic osseous metastatic disease is again noted. The cervical soft tissues are unremarkable. There is no lymphadenopathy. The thyroid gland is unremarkable. The visualized lung apices are unremarkable. CT/CT cervical spine wo IV con IMPRESSION: 1. Straightening of the normal cervical lordosis may be secondary to positioning and/or muscle spasm. 2. Mild to moderate multilevel degenerative changes without definitive acute abnormality. 3. Extensive sclerotic osseous metastatic disease is again seen without significant change.
--- NOTE | 2023-02-27 10:33 | ED_ITS ---
HPI - Fall General Chief Complaint: Fall <Veronica Hernández NP - Last Filed: 02/27/23 12:32> Stated Complaint: FALL <Veronica Hernández NP - Last Filed: 02/27/23 12:32> Time Seen by Provider: 02/27/23 10:32 <Veronica Hernández NP - Last Filed: 02/27/23 12:32> Source: patient and EMS <Veronica Hernández NP - Last Filed: 02/27/23 12:32> Mode of arrival: EMS <Veronica Hernández NP - Last Filed: 02/27/23 12:32> Limitations: no limitations <Veronica Hernández NP - Last Filed: 02/27/23 12:32> History of Present Illness HPI Narrative: This is a 67-year-old male with a history of prostate cancer with bony Mets currently receiving chemotherapy followed by Dr. Plaza, hypertension, diabetes who comes from home with complaints of headache and nausea. Patient reports that he had a fall about 1 hour ago. He fell backwards hitting his head on the hardwood floor. Unsure if there was loss of consciousness. Patient is unsure why he fell. He believes that his legs may have given out and states my legs get rubbery. denies preceding symptoms of chest pain, palpitations, dizziness, headache. Patient is on a full aspirin daily <Veronica Hernández NP - Last Filed: 02/27/23 12:32> Related Data Home Medications: Home Medications Medication Instructions Recorded Confirmed cholecalciferol (vitamin D3) 50 50 mcg PO DAILY 07/31/21 01/23/23 mcg (2,000 unit) capsule (Vitamin D3) insulin needles (disposable) 31 07/31/21 01/23/23 leuprolide acetate (6 month) 45 mg 45 mg subcut [id number] 07/31/21 01/23/23 (6 month) subcutaneous syringe (Eligard) xicsxnks-gul-fflhc acid 0.4 1 tab PO DAILY 07/31/21 01/23/23 mg-lycopene 300 mcg-lutein 250 mcg tablet (Centrum Silver) denosumab 120 mg/1.7 mL (70 mg/mL) 120 mg subcut QMONTH 04/03/22 01/23/23 subcutaneous solution (Xgeva) sertraline 50 mg tablet 1 tab PO DAILY 11/20/22 01/23/23 calcium 500 mg tablet 500 mg PO TID 01/23/23 01/23/23 Previous Rx's Medication Instructions Recorded pen needle, diabetic 31 gauge x #100 ea 01/09/2201/09 (BD Ultra-Fine Mini Pen Needle) ondansetron 8 mg disintegrating 8 mg PO Q8H PRN Nausea #30 tabs 10/15/22 tablet amlodipine 10 mg tablet 10 mg PO QPM #90 tabs 10/18/22 dexamethasone 4 mg tablet 4 mg PO BID #60 tabs 10/30/22 glyburide 5 mg tablet 5 mg PO DAILY #90 tabs 01/06/23 insulin glargine-yfgn 100 unit/mL 40 unit (0.4 mL) subcut DAILY #30 01/06/23 (3 mL) subcutaneous pen (Semglee mL (insulin glargine-yfgn) Pen) gabapentin 600 mg tablet 600 mg PO BEDTIME #90 tabs 01/07/23 tramadol 50 mg tablet 50 mg PO Q8H PRN Pain #30 tabs 01/23/23 lisinopril 40 mg tablet 40 mg PO DAILY 3 months #90 tabs 01/30/23 prednisone 5 mg tablet 5 mg PO BID #60 tabs 02/17/23 <Veronica Hernández NP - Last Filed: 02/27/23 12:32> Allergies/Adverse Reactions: Allergies Allergy/AdvReac Type Severity Reaction Status Date / Time metformin AdvReac Intermediate vomiting Verified 02/27/23 11:03 <Veronica Hernández NP - Last Filed: 02/27/23 12:32> Review of Systems Review of Systems: Yes all other systems are reviewed and are negative <Veronica Hernández NP - Last Filed: 02/27/23 12:32> Constitutional: Constitutional: Reports no additional constitutional complaints, Denies body ache(s), Denies chills, Denies fever(s), Reports headache(s) and Reports weakness <Veronica Hernández NP - Last Filed: 02/27/23 12:32> Eyes: Eyes: Reports no additional eye complaints and Denies change in vision <Veronica Hernández AGED OR DISABLED CARER - Last Filed: 02/27/23 12:32> ENT: Reports system reviewed and no additional complaints, except as documented, Denies dizziness, Reports headache(s), Denies nasal congestion, Denies nasal discharge and Denies neck pain <Veronica Hernández AGED OR DISABLED CARER - Last Filed: 02/27/23 12:32> Cardiovascular: Cardiovascular: Reports no additional cardiovascular complaints, Denies chest pain, Denies leg edema and Denies dyspnea <Veronica Hernández AGED OR DISABLED CARER - Last Filed: 02/27/23 12:32> Respiratory: Respiratory: Reports no additional respiratory complaints, Denies cough and Denies dyspnea <Veronica Hernández AGED OR DISABLED CARER - Last Filed: 02/27/23 12:32> Gastrointestinal: Gastrointestinal: Reports no additional gastrointestinal co mplaints, Denies abdominal pain, Denies diarrhea, Reports nausea and Denies vomiting <Veronica Hernández AGED OR DISABLED CARER - Last Filed: 02/27/23 12:32> Genitourinary: Genitourinary: Denies urinary incontinence <Veronica Hernández AGED OR DISABLED CARER - Last Filed: 02/27/23 12:32> Musculoskeletal: Musculoskeletal: Reports no additional musculoskeletal complaints, Denies back pain, Denies arthralgias, Denies joint swelling, Denies neck pain, Denies numbness and Denies tingling <Veronica Hernández AGED OR DISABLED CARER - Last Filed: 02/27/23 12:32> Integumentary/Breasts: Skin/Breast: Reports system reviewed and no additional complaints, except as docu and Denies rash <Veronica Hernández AGED OR DISABLED CARER - Last Filed: 02/27/23 12:32> Neurologic: Reports system reviewed and no additional complaints, except as documented, Denies Abnormal speech present, Denies dizziness, Reports headache(s), Denies numbness, Denies tingling and Reports weakness <Veronica Hernández AGED OR DISABLED CARER - Last Filed: 02/27/23 12:32> FORMERLY [facility], [facility] Past Medical History Attestation statement: The following information was validated with the patient. <Veronica Hernández NP - Last Filed: 02/27/23 12:32> Source: old records reviewed and nursing notes reviewed <Veronica Hernández NP - Last Filed: 02/27/23 12:32> Medical History: Medical History Anxiety BPH (benign prostatic hyperplasia) Chronic post-traumatic stress disorder (PTSD) CTS (carpal tunnel syndrome) Depression, major Diabetes mellitus with hyperglycemia, with long-term current use of insulin Diabetic neuropathy Dyslipidemia Erectile dysfunction Essential hypertension History of nephrolithiasis History of nuclear stress test 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 longterm prescription benzodiazepine use Obesity OCD (obsessive compulsive disorder) PTSD (post-traumatic stress disorder) <Veronica Hernández NP - Last Filed: 02/27/23 12:32> Surgical History: Surgical History No pertinent past surgical history <Veronica Hernández NP - Last Filed: 02/27/23 12:32> Family History Family History: Family History Paternal Uncle Cancer Maternal Uncle Prostate cancer Maternal Uncle Prostate cancer Family/Other Prostate cancer Maternal Grandmother Cancer of kidney Sister Skin cancer Sister Stroke Father Heart attack <Veronica Hernández NP - Last Filed: 02/27/23 12:32> Social History Social History: Social History Household Members: Significant Other Housing: House Are you a primary child care cook to a significant other at home: No Do you presently have visiting nurse or other home services: No Alcohol intake: former Patient Tobacco Use Status: Never used Tobacco Smoked in Last 30 Days: No e-Cigarette/Vaping Use: Never Used Use of substances other than those prescribed or required for medical reasons: No Advance Directives: Yes Advance Directives on File: Yes Advance Directives Date on File: 02/06/22 service: No Current occupational status: retired 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 Cognitive needs: No Hearing needs: No Vision needs: Yes <Veronica Hernández NP - Last Filed: 02/27/23 12:32> Physical Exam Vital Signs: Vital Signs: Last Vital Signs Temp 98.1 F 02/27/23 10:41 Pulse 87 02/27/23 11:40 Resp 18 02/27/23 11:40 BP 153/67 H 02/27/23 11:40 Pulse Ox 100 02/27/23 11:40 O2 Del Method Room Air 02/27/23 11:40 BMI result Body Mass Index 31.5 <Veronica Hernández NP - Last Filed: 02/27/23 12:32> Vital Signs: Last Vital Signs Temp 98.1 F 02/27/23 10:41 Pulse 87 02/27/23 11:40 Resp 18 02/27/23 11:40 BP 153/67 H 02/27/23 11:40 Pulse Ox 100 02/27/23 11:40 O2 Del Method Room Air 02/27/23 11:40 BMI result Body Mass Index 31.5 <Akira Herron MD - Last Filed: 02/27/23 15:39> Const: General: cooperative, healthy appearing, comfortable and no acute distress <Veronica Hernández NP - Last Filed: 02/27/23 12:32> Orientation/consciousness: patient oriented x3 <Veronica Hernández NP - Last Filed: 02/27/23 12:32> Limitations: no limitations <Veronica Hernández NP - Last Filed: 02/27/23 12:32> HEENT: Head: Yes normal to inspection and No Nash's sign <Veronica Hernández NP - Last Filed: 02/27/23 12:32> Ears: hearing grossly normal bilaterally and TM's normal bilaterally <Veronica Hernández NP - Last Filed: 02/27/23 12:32> General nose exam: Normal external nose present <Veronica Hernández NP - Last Filed: 02/27/23 12:32> Face and sinus: Yes normal facial exam <Veronica Hernández NP - Last Filed: 02/27/23 12:32> Mouth: Normal oral and palatal mucosa present <Veronica Hernández NP - Last Filed: 02/27/23 12:32> Throat: Yes posterior oropharynx normal <Veronica Hernández NP - Last Filed: 02/27/23 12:32> Eyes: General: appearance normal, both eyes and all related structures <Veronica Hernández AGED OR DISABLED CARER - Last Filed: 02/27/23 12:32> Pupils: Equal, round and reactive pupils present <Veronica Hernández AGED OR DISABLED CARER - Last Filed: 02/27/23 12:32> Neck: Other: no cervical midline tenderness, step-offs or deformities <Veronica Hernández AGED OR DISABLED CARER - Last Filed: 02/27/23 12:32> Neck: Yes normal visual inspection <Veronica Hernández AGED OR DISABLED CARER - Last Filed: 02/27 12:32> Chest: Chest palpation & inspection: normal inspection of the chest <Veronica Hernández AGED OR DISABLED CARER - Last Filed: 02/27/23 12:32> Resp: Effort & Inspection: normal respiratory effort <Veronica Hernández AGED OR DISABLED CARER - Last Filed: 02/27/23 12:32> Auscultation: clear to auscultation bilaterally <Veronica Hernández AGED OR DISABLED CARER - Last Filed: 02/27/23 12:32> Cardio: Rate: regular rate <Veronica Hernández AGED OR DISABLED CARER - Last Filed: 02/27/23 12:32> Rhythm: regular rhythm <Veronica Hernández AGED OR DISABLED CARER - Last Filed: 02/27/23 12:32> Peripheral pulses: Peripheral pulses 2+ throughout <Veronica Hernández AGED OR DISABLED CARER - Last Filed: 02/27/23 12:32> GI: Inspection: Yes normal to inspection <Veronica Hernández AGED OR DISABLED CARER - Last Filed: 02/27/23 12:32> Palpation (GI): Soft to palpation and nontender <Veronica Hernández AGED OR DISABLED CARER - Last Filed: 02/27/23 12:32> Auscultation: normal bowel sounds <Veronica Hernández AGED OR DISABLED CARER - Last Filed: 02/27/23 12:32> Back/Spine/Pelvis: Thoracic/Lumbar Spine: thoracic and lumbar spine normal to inspection <Veronica Hernández AGED OR DISABLED CARER - Last Filed: 02/27/23 12:32> Skin: General skin exam: no rashes or lesions noted <Veronicakevin Hernández AGED OR DISABLED CARER - Last Filed: 02/27/23 12:32> Neuro: General: patient oriented x3, moves all extremities, no focal motor deficits, normal sensation to monofilament and Unable to assess gait <Veronica Contiben AGED OR DISABLED CARER - Last Filed: 02/27/23 12:32> Cranial nerves: Yes CN's II-XII intact bilaterally, Yes Equal, round and reactive pupils present, Yes Bilaterally intact EOM present, Yes Normal facial strength present and Yes Midline tongue present <Veronica Kevintroy, AGED OR DISABLED CARER - Last Filed: 02/27/23 12:32> Cognition (Neuro): normal cognition <Veronicakevin Hernández, AGED OR DISABLED CARER - Last Filed: 02/27/23 12:32> Speech: No Abnormal speech present <Veronica Kevintroy, AGED OR DISABLED CARER - Last Filed: 02/27/23 12:32> Gait exam (Neuro): Unable to assess gait <Veronicakevin Hernández AGED OR DISABLED CARER - Last Filed: 02/27/23 12:32> Motor exam (neuro): 5/5 motor strength present throughout <Veronica Kevintroy, AGED OR DISABLED CARER - Last Filed: 02/27/23 12:32> Sensory Exam: Normal double simultaneous stimulation for sensation <Veronicakevin Hernández AGED OR DISABLED CARER - Last Filed: 02/27/23 12:32> Extrem: General: Yes normal to inspection <Veronica Kevintroy AGED OR DISABLED CARER - Last Filed: 02/27/23 12:32> Course Course Course Narrative: 1055- the patient was brought to CT scan a right away. The CT of his head shows right subdural hematoma with no midline shift. There is also several frontal areas of intraparenchymal hemorrhage on the same side. Patient was brought back to the room. Patient has a normal neurological exam. blood pressure is 151/72. Patient will have labs, EKG, COVID screen. Anticipate tra nsfer to [facility] for neurosurgery evaluation <Veronica Kevintroy AGED OR DISABLED CARER - Last Filed: 02/27/23 12:32> Reevaluation(s) Reevaluation #1: 1130- reviewed the patient's labs. Patient has a hemoglobin of 9.3 and hematocrit of 29.8 which is unchanged from his baseline hemoglobin and hematocrit. <Veronica Hernández NP - Last Filed: 02/27/23 12:32> Reevaluation #2: 8520- I received a call from Radiology with report from the patient's CT head and cervical spine. <Veronica Hernández NP - Last Filed: 02/27/23 12:32> Medications Administered Discontinued Medications Generic Name Dose Route Start Last Admin Trade Name Freq PRN Reason Stop Dose Admin Ondansetron HCl 4 mg 02/27/23 10:51 02/27/23 11:04 Ondansetron Hcl 4 Mg/2 Ml Vial IVPUSH 02/27/23 10:52 4 mg ONCE ONE Administration Ondansetron HCl 4 mg 02/27/23 11:30 02/27/23 11:41 Ondansetron Hcl 4 Mg/2 Ml Vial IVPUSH 02/27/23 11:31 4 mg ONCE ONE Administration <Veronica Hernández NP - Last Filed: 02/27/23 12:32> Medications Administered Discontinued Medications Generic Name Dose Route Start Last Admin Trade Name Freq PRN Reason Stop Dose Admin Ondansetron HCl 4 mg 02/27/23 10:51 02/27/23 11:04 Ondansetron Hcl 4 Mg/2 Ml Vial IVPUSH 02/27/23 10:52 4 mg ONCE ONE Administration Ondansetron HCl 4 mg 02/27/23 11:30 02/27/23 11:41 Ondansetron Hcl 4 Mg/2 Ml Vial IVPUSH 02/27/23 11:31 4 mg ONCE ONE Administration <Akira Herron MD - Last Filed: 02/27/23 15:39> Medical Decision Making Medical Decision Making MDM Narrative: this is a 67-year-old male who had a fall from an unknown reason who presents to the ER with complaints of headache and nausea and vomiting. The fall happened 1 hour prior to arrival. On arrival patient is vomiting. Complaining of diffuse headache, oriented x3. Patient is on aspirin full dose daily. Patient was directly taken to the CT scanner for a CT of the head and cervical spine. <Veronica Hernández NP - Last Filed: 02/27/23 12:32> Differential Diagnosis Differential Diagnoses: The differential diagnosis associated with the presentation includes <Wilmer Hernández NP - Last Filed: 02/27/23 12:32> Intracranial hemorrhage, cervical fracture, concussion, cervical strain <Veronica Hernández NP - Last Filed: 02/27/23 12:32> Admission/Observation Consideration of admission/observation: Escalation of care including admission/observation considered <Veronica Hernández NP - Last Filed: 02/27/23 12:32> 1100-call to [facility] for transfer, spoke to transfer line, pending call back <Veronica Hernández NP - Last Filed: 02/27/23 12:32> Consult Healthcare Provider Management of the patient was discussed with: Cryptologic Supervisor <Veronica Hernández NP - Last Filed: 02/27/23 12:32> 1130- I received a call back from [facility]. I spoke to the trauma surgeon on-call Dr. Marcelo who accepted the transfer of patient. <Veronica Hernández NP - Last Filed: 02/27/23 12:32> Lab Data MDM Lab Attestation statement: I reviewed the patient's lab results. <Veronica Hernández NP - Last Filed: 02/27/23 12:32> Result Diagrams: 02/27/23 11:02 02/27/23 11:02 <Veronica Hernández NP - Last Filed: 02/27/23 12:32> Labs: Lab Results 02/27/23 02/27/23 02/27/23 Range/Units 11:02 11:02 11:02 WBC 7.2 (4.8-10.8) X10*3/uL RBC 3.32 L (4.60-5.80) X10*6/uL Hgb 9.3 L (14.0-18.0) g/dl Hct 29.8 L (42.0-52.0) % MCV 89.8 (80.0-98.0) fL MCH 28.0 (27.0-33.0) pg MCHC 31.2 (31.0-36.0) g/dl RDW 15.2 (11.0-16.0) % Plt Count 272 (160-400) X10*3/uL MPV 8.8 L (9.4-12.4) fL Immature Gran % (Auto) 1.9 H (0.0-0.4) % Neut % (Auto) 71.3 (45-73) % Lymph % (Auto) 14.2 L (20-40) % [place] % (Auto) 7.7 (2-11) % Eos % (Auto) 4.3 H (0-4) % Baso % (Auto) 0.6 (0-2) % Lymph # (Auto) 1.0 L (1.2-4.9) X10*3/uL [place] # (Auto) 0.6 (0.1-1.2) X10*3/uL Eos # (Auto) 0.3 (0.0-0.4) X10*3/uL Baso # (Auto) 0.0 (0.0-0.2) X10*3/uL Abs Immat Gran (auto) 0.14 H (0.00-0.03) X10*3/uL Absolute Neuts (auto) 5.2 (2.0-8.3) x10*3/uL Absolute Nucleated RBC 0.000 (0.0-0.012) X10*3/uL Nucleated RBC % (auto) 0.0 (0.0-0.2) /100WBC PT (10.0-13.1) SEC INR (0.9-1.1) Sodium 137 (135-145) mmol/L Potassium 4.3 (3.3-5.1) mmol/L Chloride 104 (96-108) mmol/L Carbon Dioxide 24 (22-29) mmol/L Anion Gap 13 (12-20) BUN 17 H (9-16) mg/dL Creatinine 0.81 (0.5-1.4) mg/dL Estim Creat Clear Calc 107.6 Estimated GFR > 60 Random Glucose 235 H (60-115) mg/dL Calcium 8.9 (8.4-10.2) mg/dL Total Bilirubin 0.5 (0.0-1.0) mg/dL Direct Bilirubin 0.2 (0.0-0.5) mg/dL AST 32 (5-37) U/L ALT 8 (0-40) U/L Alkaline Phosphatase 405 H (39-117) U/L Troponin I High Sens 4.1 (<3.5-35.0) ng/L Total Protein 6.1 L (6.5-8.0) g/dL Albumin 3.9 (3.5-5.0) g/dL COVID-19 ([facility]) (Negative) COVID-19 Clin Com Blood Type Antibody Screen 02/27/23 02/27/23 02/27/23 Range/Units 11:02 11:21 11:21 WBC (4.8-10.8) X10*3/uL RBC (4.60-5.80) X10*6/uL Hgb (14.0-18.0) g/dl Hct (42.0-52.0) % MCV (80.0-98.0) fL MCH (27.0-33.0) pg MCHC (31.0-36.0) g/dl RDW (11.0-16.0) % Plt Count (160-400) X10*3/uL MPV (9.4-12.4) fL Immature Gran % (Auto) (0.0-0.4) % Neut % (Auto) (45-73) % Lymph % (Auto) (20-40) % [place] % (Auto) (2-11) % Eos % (Auto) (0-4) % Baso % (Auto) (0-2) % Lymph # (Auto) (1.2-4.9) X10*3/uL [place] # (Auto) (0.1-1.2) X10*3/uL Eos # (Auto) (0.0-0.4) X10*3/uL Baso # (Auto) (0.0-0.2) X10*3/uL Abs Immat Gran (auto) (0.00-0.03) X10*3/uL Absolute Neuts (auto) (2.0-8.3) x10*3/uL Absolute Nucleated RBC (0.0-0.012) X10*3/uL Nucleated RBC % (auto) (0.0-0.2) /100WBC PT 12.6 (10.0-13.1) SEC INR 1.1 (0.9-1.1) Sodium (135-145) mmol/L Potassium (3.3-5.1) mmol/L Chloride (96-108) mmol/L Carbon Dioxide (22-29) mmol/L Anion Gap (12-20) BUN (9-16) mg/dL Creatinine (0.5-1.4) mg/dL Estim Creat Clear Calc Estimated GFR Random Glucose (60-115) mg/dL Calcium (8.4-10.2) mg/dL Total Bilirubin (0.0-1.0) mg/dL Direct Bilirubin (0.0-0.5) mg/dL AST (5-37) U/L ALT (0-40) U/L Alkaline Phosphatase (39-117) U/L Troponin I High Sens (<3.5-35.0) ng/L Total Protein (6.5-8.0) g/dL Albumin (3.5-5.0) g/dL COVID-19 ([facility]) Negative (Negative) COVID-19 Clin Com See Note Blood Type O Positive Antibody Screen NEGATIVE <Veronica Hernández NP - Last Filed: 02/27/23 12:32> Lab Results 02/27/23 02/27/23 02/27/23 Range/Units 11:02 11:02 11:02 WBC 7.2 (4.8-10.8) X10*3/uL RBC 3.32 L (4.60-5.80) X10*6/uL Hgb 9.3 L (14.0-18.0) g/dl Hct 29.8 L (42.0-52.0) % MCV 89.8 (80.0-98.0) fL MCH 28.0 (27.0-33.0) pg MCHC 31.2 (31.0-36.0) g/dl RDW 15.2 (11.0-16.0) % Plt Count 272 (160-400) X10*3/uL MPV 8.8 L (9.4-12.4) fL Immature Gran % (Auto) 1.9 H (0.0-0.4) % Neut % (Auto) 71.3 (45-73) % Lymph % (Auto) 14.2 L (20-40) % [place] % (Auto) 7.7 (2-11) % Eos % (Auto) 4.3 H (0-4) % Baso % (Auto) 0.6 (0-2) % Lymph # (Auto) 1.0 L (1.2-4.9) X10*3/uL [place] # (Auto) 0.6 (0.1-1.2) X10*3/uL Eos # (Auto) 0.3 (0.0-0.4) X10*3/uL Baso # (Auto) 0.0 (0.0-0.2) X10*3/uL Abs Immat Gran (auto) 0.14 H (0.00-0.03) X10*3/uL Absolute Neuts (auto) 5.2 (2.0-8.3) x10*3/uL Absolute Nucleated RBC 0.000 (0.0-0.012) X10*3/uL Nucleated RBC % (auto) 0.0 (0.0-0.2) /100WBC PT (10.0-13.1) SEC INR (0.9-1.1) Sodium 137 (135-145) mmol/L Potassium 4.3 (3.3-5.1) mmol/L Chloride 104 (96-108) mmol/L Carbon Dioxide 24 (22-29) mmol/L Anion Gap 13 (12-20) BUN 17 H (9-16) mg/dL Creatinine 0.81 (0.5-1.4) mg/dL Estim Creat Clear Calc 107.6 Estimated GFR > 60 Random Glucose 235 H (60-115) mg/dL Calcium 8.9 (8.4-10.2) mg/dL Total Bilirubin 0.5 (0.0-1.0) mg/dL Direct Bilirubin 0.2 (0.0-0.5) mg/dL AST 32 (5-37) U/L ALT 8 (0-40) U/L Alkaline Phosphatase 405 H (39-117) U/L Troponin I High Sens 4.1 (<3.5-35.0) ng/L Total Protein 6.1 L (6.5-8.0) g/dL Albumin 3.9 (3.5-5.0) g/dL COVID-19 ([facility]) (Negative) COVID-19 Clin Com Blood Type Antibody Screen 02/27/23 02/27/23 02/27/23 Range/Units 11:02 11:21 11:21 WBC (4.8-10.8) X10*3/uL RBC (4.60-5.80) X10*6/uL Hgb (14.0-18.0) g/dl Hct (42.0-52.0) % MCV (80.0-98.0) fL MCH (27.0-33.0) pg MCHC (31.0-36.0) g/dl RDW (11.0-16.0) % Plt Count (160-400) X10*3/uL MPV (9.4-12.4) fL Immature Gran % (Auto) (0.0-0.4) % Neut % (Auto) (45-73) % Lymph % (Auto) (20-40) % [place] % (Auto) (2-11) % Eos % (Auto) (0-4) % Baso % (Auto) (0-2) % Lymph # (Auto) (1.2-4.9) X10*3/uL [place] # (Auto) (0.1-1.2) X10*3/uL Eos # (Auto) (0.0-0.4) X10*3/uL Baso # (Auto) (0.0-0.2) X10*3/uL Abs Immat Gran (auto) (0.00-0.03) X10*3/uL Absolute Neuts (auto) (2.0-8.3) x10*3/uL Absolute Nucleated RBC (0.0-0.012) X10*3/uL Nucleated RBC % (auto) (0.0-0.2) /100WBC PT 12.6 (10.0-13.1) SEC INR 1.1 (0.9-1.1) Sodium (135-145) mmol/L Potassium (3.3-5.1) mmol/L Chloride (96-108) mmol/L Carbon Dioxide (22-29) mmol/L Anion Gap (12-20) BUN (9-16) mg/dL Creatinine (0.5-1.4) mg/dL Estim Creat Clear Calc Estimated GFR Random Glucose (60-115) mg/dL Calcium (8.4-10.2) mg/dL Total Bilirubin (0.0-1.0) mg/dL Direct Bilirubin (0.0-0.5) mg/dL AST (5-37) U/L ALT (0-40) U/L Alkaline Phosphatase (39-117) U/L Troponin I High Sens (<3.5-35.0) ng/L Total Protein (6.5-8.0) g/dL Albumin (3.5-5.0) g/dL COVID-19 ([facility]) Negative (Negative) COVID-19 Clin Com See Note Blood Type O Positive Antibody Screen NEGATIVE <Akira Herron MD - Last Filed: 02/27/23 15:39> Independent Interpretation I performed an independent interpretation of an: CT Scan <Veronica Hernández NP - Last Filed: 02/27/23 12:32> Interpretation: I independently reviewed CT head/cervical spine and agree with the radiologist's report <Veronica Hernández NP - Last Filed: 02/27/23 12:32> Radiology Impression Discussion of test interpretation with radiology: I have reviewed the radiologist's reading. <Veronica Hernández NP - Last Filed: 02/27/23 12:32> Radiologist Impression: FINDINGS: There is a moderate right subdural hematoma with high attenuation and low-attenuation components measuring up to approximately 8 mm in width in the frontoparietal region (image 145, series 7). A smaller hemorrhage is seen on the left in the frontal parietal as well as temporal regions. Scattered frontal subarachnoid and possible intraparenchymal components are seen as well. There is associated mass effect and effacement of the sulci in the right temporal, frontal and parietal lobes. Asymmetric compression of the right lateral ventricles also seen. No significant midline shift. The posterior fossa components are unremarkable. There is a moderate-sized right posterior parietal occipital subgaleal hematoma without acute hemorrhagic components. The bony calvarium appears intact. The paranasal sinuses are clear. The bony orbits and orbital contents are unremarkable. There is hypoaeration of the right mastoid air cells including the mastoid process with opacification of several mastoid air cells. The left mastoid air cells are within normal limits. ? CT/CT head/brain wo IV con IMPRESSION: 1.? Bilateral subdural hematomas, right greater than left with associated mass effect on the right detailed above. Small scattered frontal subarachnoid and possible intraparenchymal components are seen as well. No significant midline shift. 2.? Moderate right posterior parietal occipital subgaleal hematoma without acute hemorrhagic components. 3.? Hypoaeration of the right mastoid air cells with probable nonacute right mastoid effusion. FINDINGS: There is straightening of the normal cervical lordosis with normal spinal alignment. Mild to moderate multilevel degenerative disc disease is seen most pronounced at C6-C7 with disc space narrowing, marginal osteophyte formation and mild bilateral neural foraminal narrowing. Mild bilateral neural foraminal narrowing is seen at C4-C5 and C5-C6. A superior plate compression deformity is again seen at T1 with similar appearance. The remainder the vertebral bodies as well as the odontoid process are intact. The spinous and transverse processes are intact. Extensive sclerotic osseous metastatic disease is again noted. The cervical soft tissues are unremarkable. There is no lymphadenopathy. The thyroid gland is unremarkable. The visualized lung apices are unremarkable. CT/CT cervical spine wo IV con IMPRESSION: 1.? Straightening of the normal cervical lordosis may be secondary to positioning and/or muscle spasm. 2.? Mild to moderate multilevel degenerative changes without definitive acute abnormality. 3.? Extensive sclerotic osseous metastatic disease is again seen without significant change. <Veronica Hernández NP - Last Filed: 02/27/23 12:32> External Record Review External record reviewed: Outpatient record <Veronica Hernández NP - Last Filed: 02/27/23 12:32> reviewed oncology notes from office visit January 22. 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 Initial PSA of 501. He was started on combined androgen blockade, Casodex and Lupron.? He was on abiraterone 1000 mg daily along with prednisone 5 mg b.i.d from April 2021 until end of May 2022.? ? For his symptomatic bone metastasis, he has been started on denosumab 120 mg subcu monthly. ? He was on enzalutamide 160 mg once daily from 06/2022 until 10/2022 Patient has had progressive increase in PSA since the fall of 2021.? Bone scan 05/2022 showed worsening disease. He started chemotherapy, Taxotere 75 milligram/meter squared every 3 weeks with Neulasta support from 10/30/2022.. He is tolerating it well.? Alkaline phosphatase level is trending down.? Submit PSA level. 2. ? Diffuse body pain secondary to extensive bone metastasis.? He is on Tylenol which is not helping.? He is being started on tramadol 50 mg every 8 hours as needed. His pain is much better controlled. <Veronica Hernández NP - Last Filed: 02/27/23 12:32> Attestation Attending Attestation: I reviewed QUARTER INSPECTOR/PA/Resident note, assessment and plan. I personally evaluated the patient as well. We discussed transfer to a higher level of care with the patient. Patient is on aspirin. Consideration of platelet transfusion has been discussed with patient will be discussed with trauma team at receiving facility. I agree with the documentation, assessment and plan unless otherwise stated. <Akira Herron MD - Last Filed: 02/27/23 15:39> Critical Care Time Critical Care Time Critical Care Time: Yes <Veronica Hernández NP - Last Filed: 02/27/23 12:32> Total Critical Care Time: 60 <Veronica Hernández NP - Last Filed: 02/27/23 12:32> Attestation: patient was subdural hematoma from trauma requiring transfer to tertiary care center. Patient requiring frequent neuro checks, blood pressure observation, Discussion with family and trauma service at [facility] <Veronica Hernández NP - Last Filed: 02/27/23 12:32> Discharge Plan Discharge Clinical Impression: Acute subdural hematoma <Veronica Hernández NP - Last Filed: 02/27/23 12:32> Patient Disposition: [facility] <Veronica Hernández NP - Last Filed: 02/27/23 12:32> Transfer Details: [facility] <Veronica Hernández NP - Last Filed: 02/27/23 12:32> [facility] <Akira Herron MD - Last Filed: 02/27/23 15:39> Prescriptions: No Action (DME) pen needle, diabetic [BD Ultra-Fine Mini Pen Needle] 31 gauge x 3/16 needle See Rx Instructions .Route Qty: 100 3RF Rx Instructions: use to inject insulin once a day amlodipine 10 mg tablet 10 mg PO QPM Qty: 90 1RF insulin glargine-yfgn [Semglee(insulin glarg-yfgn)Pen] 100 unit/mL (3 mL) insulin pen 40 unit subcut DAILY Qty: 30 0RF glyburide 5 mg tablet 5 mg PO DAILY Qty: 90 0RF gabapentin 600 mg tablet 600 mg PO BEDTIME Qty: 90 0RF lisinopril 40 mg tablet 40 mg PO DAILY 90 Days Qty: 90 1RF prednisone 5 mg Tablet 5 mg PO BID Qty: 60 3RF (DME) Pen Needle 31 Needle MISCELLANEOUS Centrum Silver 0.4-300-250 mg-mcg-mcg Tablet 1 tab PO DAILY cholecalciferol (vitamin D3) [Vitamin D3] 50 mcg (2,000 unit) Capsule 50 mcg PO DAILY Eligard (6 month) 45 mg Syringe 45 mg SUBCUT [id number] Xgeva 120 mg/1.7 mL (70 mg/mL) Solution 120 mg SUBCUT QMONTH ondansetron 8 mg Tablet,Disintegrating 8 mg PO Q8H PRN (Reason: Nausea) Qty: 30 3RF dexamethasone 4 mg Tablet 4 mg PO BID Qty: 60 1RF Rx Instructions: take for 2 days after chemo sertraline 50 mg tablet 1 tab PO DAILY calcium 500 mg Tablet 500 mg PO TID tramadol 50 mg Tablet 50 mg PO Q8H PRN (Reason: Pain) Qty: 30 3RF <Veronica Hernández NP - Last Filed: 02/27/23 12:32> Interventions: Acute Care Transfer Worksheet (ED) Last Done: 02/27/23 11:45 <Veronica Hernández NP - Last Filed: 02/27/23 12:32> Discharge Date/Time: 02/27/23 11:45 <Veronica Hernández NP - Last Filed: 02/27/23 12:32>
--- NOTE | 2023-02-27 10:36 | ECG_ITS ---
Test Reason : WEAKNESS Blood Pressure : / mmHG Vent. Rate : 084 BPM Atrial Rate : 084 BPM P-R Int : 136 ms QRS Dur : 078 ms QT Int : 378 ms P-R-T Axes : -01 015 056 degrees QTc Int : 446 ms Normal sinus rhythm Nonspecific ST abnormality Abnormal ECG No previous ECGs available Referred By: Veronica Hernández Electronically Signed By:JO DIAZ MD
[2023-02-27 10:41] VITALS: BP 157/76; BP 179/85; PULSE 92; PULSE 98; RESP 15; TEMP 36.7; O2SAT 98; O2SAT 99; BMI 31.5
[2023-02-27 11:04] VITALS: BP 151/72; PULSE 90; O2SAT 99
[2023-02-27] MEDS: ondansetron HCL 4 MG/2 ML VIAL IVPUSH ×2 (11:04→11:41)
--- OUTSIDE RECORDS SUMMARY | 2023-02-27 11:04 | XMS_ITS | Continuity of Care Document ---
Author Name Unknown Organization [facility] Jason lt Address [address] [place] [address]- Care Team Providers Care Wide Area Network Systems Administrator Name Role Phone Chikis BARNETT, Tyrese Heard Primary Care Physician Encounter [facility] Date(s): 03/21/21 - 04/20/21 [facility] Adult [address] [place] [address]- Allergies, Adverse Reactions, Alerts Substance Reaction Severity Status metformin Active Immunizations Given and Recorded Vaccine Date Status Refusal Reason SARS-CoV-2 (COVID-19) Ad26 vaccine 02/05/21 Record ed influenza virus vaccine, inactivated 1 06/29/14 Gi daniele influenza virus vaccine, inactivated 2 10/14/13 Gi daniele Diphtheria/Tet/Pertussis, Acel (oldterm) 06/12/12 Given FluLaval (oldterm) 3 11/19/10 Given Tetanus Toxoid Vaccine (oldterm) 01/25/05 Given 1Result Comment: [12/26/2014] [employer] sold home 2Admin Note: WORK 10-13 3Admin Note: declines Medications aspirin buffered 325 mg oral tablet 1 tablet = 325 mg, By Mouth, Daily, # 30 tablet, 0 Refills, Maintenance, 01/17/17 13:47:10, Tablet Start Date: 01/17/17 Status: Ordered Caduet 10 mg-20 mg oral tablet 1 tablet, By Mouth, Daily, # 90 tablet, 3 Refills, Maintenance, hypertension and high cholesterol, 11/27/20 10:39:00 EST, [id number], 1 tablet By Mouth Daily, 180, cm, 11/27/20 9:53:00 EST, Height Start Date: 11/27/20 Status: Ordered Centrum Silver Therapeutic Multiple Vitamins with Minerals oral tablet 1, tablet, By Mouth, Daily, 0, 0, 11/21/05 16:45:48, Print TOÑITO Number, [id number], Constant Indicator Start Date: 11/21/05 Status: Ordered finasteride 5 mg oral tablet 1 tablet, By Mouth, Daily, # 90 tablet, 3 Refills, Maintenance, 04/17/21 12:38:00 EDT, [facility] STORE [id number], 180, cm, 04/02/21 13:41:00 EDT, Height Start Date: 04/17/21 Status: Ordered furosemide 20 mg oral tablet 20 mg, 1, tablet, By Mouth, 2 times a day, # 60 tablet, Refills 5, Tot. Refills 5, Maintenance, 04/17/21 12:28:00 EDT, Route to Pharmacy Electronically, [facility]pharmacy #[id number], Partial fill upon patient request if the prescription is for a schedule II opi... Start Date: 04/17/21 Status: Ordered gabapentin 600 mg oral tablet 1 tablet = 600 mg, By Mouth, 3 times a day, # 270 tablet, 3 Refills, Soft Stop, 11/27/20 10:39:00 EST, [facility]/pharmacy #[id number], 180, cm, 11/27/20 9:53:00 EST, Height Start Date: 11/27/20 Status: Ordered glyBURIDE 5 mg oral tablet 10 mg, 2, tablet, By Mouth, 2 times a day, for 90 days, # 360 tablet, Refills 3, Tot. Refills 3, Hard Stop 05/20/21 16:56:00 EDT, 05/25/20 16:56:00 EDT, Route to Pharmacy Electronically, [facility]/pharmacy#[id number], 180, cm, 10/11/19 11:32:00 EST, Height Start Date: 05/25/20 Stop Date: 05/20/21 Status: Ordered glyBURIDE 5 mg oral tablet 10 mg, 2, tablet, By Mouth, 2 times a day, # 360 tablet, Refills 0, Tot. Refills 0, Maintenance, 05/20/21 16:56:00 EDT, Route to Pharmacy Electronically, [facility]/pharmacy #[id number], 180, cm, 03/22/21 11:23:00 EDT, Height Start Date: 05/20/21 Stop Date: 08/18/21 Status: Ordered Lantus Solostar Pen 100 units/mL subcutaneous solution 10 - 40 units, Subcutaneous Infusion, Daily, # 36 mL, 3 Refills, Maintenance, 11/27/20 10:40:00 EST, [facility]/pharmacy #[id number], Partial fill upon patient request if the prescription is for a schedule II opioid drug., 180, cm, 11/27/20 9:53:00 EST, Height Start Date: 11/27/20 Status: Ordered lisinopril 40 mg oral tablet 1 tablet = 40 mg, By Mouth, Daily, # 90 tablet, 1 Refills, Soft Stop, 03/27/21 9:31:00 EDT, [id number], 180, cm, 03/22/21 11:23:00 EDT, Height Start Date: 03/27/21 Status: Ordered LORazepam 1 mg oral tablet 1 tablet = 1 mg, By Mouth, 3 times a day, PRN anxiety and sleep, # 90 tablet, 2 Refills, Maintenance, 03/28/21 10:45:00 EDT, Tablet, [facility]/pharmacy #[id number], 180, cm, 03/22/21 11:23:00 EDT, Height Start Date: 03/28/21 Status: Ordered Pen [place], 31 G x 5 mm BD Ultra Fine III See Instructions, # 200 each, Refills 5, Tot. Refills 5, Maintenance, CHECK BLOOD SUGARS THREE TIMES A DAY DM TYPE2 E11.9, 08/21/20 17:20:00 EDT, Compound, 180, cm, 10/11/19 11:32:00 EST, Height Start Date: 08/21/20 Stop Date: 02/17/21 Status: Ordered Readi-Cat 2 2.1% oral suspension See Instructions, 1 bottle 6 hours prior to appointment, 1 bottle 90 minutes prior to appointment, # 900 mL, 0 Refills, Maintenance, 04/06/21 15:49:00 EDT, [facility]/pharmacy #[id number], Partial fill upon patient request if the prescription is for a schedule II... Start Date: 04/06/21 Status: Ordered tamsulosin 0.4 mg oral capsule 0.4 mg, 1, capsule, By Mouth, Daily, # 90 capsule, Refills 1, Tot. Refills 1, Maintenance, :31:00 EDT, Route to Pharmacy Electronically, [facility]/pharmacy #[id number], 180, cm, 03/22/21 11:23:00 EDT, Height Start Date: 03/27/21 Status: Ordered Vitamin D3 2000 intl units oral capsule = 50 mcg, By Mouth, Daily, 0 Refills, Maintenance, 02/26/21 10:28:00 EDT, Partial fill upon patientrequest if the prescription is for a schedule II opioid drug. Start Date: 02/26/21 Status: Ordered Problem List Condition Effective Dates Status Health Status Inform ant Benign hypertension(Confirmed) 06/14/13 Active BPH (benign prostatic hyperplasia)(Confirmed) Active Chronic post-traumatic stres s disorder(Confirmed) 06/14/13 Active CTS (carpal tunnel syndrome)(Confirmed) 06/14/13 Active CTS - Carpal tunnel syndrome(Confirmed) 09/24/06 Active Diabetic neuropathy(Confirmed) 1 Active Erectile dysfunction(Confirmed) 02/19/06 Active History of nephrolithiasis(Confirmed) 06/14/13 Active Hypercholesterolemia(Confirmed) Active Hypercholesterolemia(Confirmed) 06/14/13 Active Hypertension(Confirmed) Active Insulin long-term use(Confirmed) Active Depression, major(Confirmed) Active Obesity(Confirmed) 12/23/12 Active OCD (obsessive compulsive disorder)(Confirmed) 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
--- OUTSIDE RECORDS SUMMARY | 2023-02-27 11:04 | XMS_ITS | Continuity of Care Document ---
Author Name Unknown Organization [facility] Jason lt Address [address] [place] [address]- Care Team Providers Care Family Service Worker Name Role Phone Tyrese Diop MD Primary Care Physician Encounter [facility] Date(s): 01/12/20 - 02/11/20 [facility] Adult [address] [place] [address]- [facility] Attending Physician: Tyrese Diop MD Allergies, Adverse Reactions, Alerts Substance Reaction Severity Status metformin Active Immunizations Given and Recorded Vaccine Date Status Refusal Reason influenza virus vaccine, inactivated 1 06/29/14 Gi daniele influenza virus vaccine, inactivated 2 10/14/13 Gi daniele Diphtheria/Tet/Pertussis, Acel (oldterm) 06/12/12 Given FluLaval (oldterm) 3 11/19/10 Given Tetanus Toxoid Vaccine (oldterm) 01/25/05 Given 1Result Comment: [12/26/2014] [employer] sold home 2Admin Note: WORK 10-13 3Admin Note: declines Medications aspirin buffered 325 mg oral tablet 1 tablet = 325 mg, By Mouth, Daily, # 30 tablet, 0 Refills, Maintenance, 01/17/17 13:47:10, Tablet Start Date: 01/17/17 Status: Ordered BD UF MINI PEN NEEDLE [id number] See Instructions, # 100 Unknown, Refills 5 Tot. Refills 5, USE TO INJECT LANTUS DAILY FOR 30 DAYS, [id number] Start Date: 06/04/19 Status: Ordered Caduet 10 mg-20 mg oral tablet 1 tablet, By Mouth, Daily, # 90 tablet, 3 Refills, Maintenance, hypertension and high cholesterol, 11/23/18 11:55:34 EST, 1 tablet By Mouth Daily Start Date: 11/23/18 Status: Ordered Centrum Silver Therapeutic Multiple Vitamins with Minerals oral tablet 1, tablet, By Mouth, Daily, 0, 0, 11/21/05 16:45:48, Print TOÑITO Number, [id number], Constant Indicator Start Date: 11/21/05 Status: Ordered finasteride 5 mg oral tablet 1 tablet = 5 mg, By Mouth, Daily, # 90 tablet, 1 Refills, Soft Stop, 02/04/20 9:46:00 EDT, [facility]/pharmacy #[id number], 180, cm, 10/11/19 11:32:00 EST, Height Start Date: 02/04/20 Status: Ordered gabapentin 600 mg oral tablet See Instructions, # 270 tablet, Refills 11 Tot. Refills 11, TAKE 1 TABLET BY MOUTH 3 TIMES A DAY, [id number] Start Date: 06/10/19 Status: Ordered glyBURIDE 5 mg oral tablet 10 mg, 2, tablet, By Mouth, 2 times a day, for 90 days, # 360 tablet, Refills 3, Tot. Refills 3, Acute 03/26/20 12:02:31 EDT, 04/01/19 12:02:31 EDT, Route to Pharmacy Electronically, [id number], [id number] Start Date: 04/01/19 Stop Date: 03/26/20 Status: Ordered Lantus Solostar Pen 100 units/mL subcutaneous solution See Instructions, # 45 Unknown, Refills 5 Tot. Refills 5, INJECT 10-40 U A DAY. CHK SUGAR IN AM & INCREASE 3 UNITS EVERY DAY TILL AM SUGAR LEVEL LESS THAN 170, [id number] Start Date: 08/31/19 Status: Ordered lisinopril 40 mg oral tablet 1 tablet = 40 mg, By Mouth, Daily, # 90 tablet, 3 Refills, Soft Stop, 11/22/19 17:12:00 EST, [id number], 180, cm, 10/11/19 11:32:00 EST, Height Start Date: 11/22/19 Status: Ordered LORazepam 1 mg oral tablet 1 tablet = 1 mg, By Mouth, 3 times a day, PRN anxiety and sleep, # 90 tablet, 2 Refills, Maintenance, 01/31/20 14:54:00 EDT, Tablet, [id number], 180, cm, 10/11/19 11:32:00 EST, Height Start Date: 01/31/20 Status: Ordered Pen [place], 31 G x 5 mm BD Ultra Fine III See Instructions, # 1 box, Refills 5, Tot. Refills 5, Maintenance, use as directed for injection oflantus solostar, 03/31/18 16:32:05 EDT, Compound Start Date: 03/31/18 Stop Date: 09/27/18 Status: Ordered Pen [place], 31 G x 5 mm BD Ultra Fine III See Instructions, # 200 each, Refills 5, Tot. Refills 5, Maintenance, Use one daily for Type 2 Diabetes Mellitus E11.9, 01/12/18 16:07:52, Compound Start Date: 01/12/18 Stop Date: 07/11/18 Status: Ordered tamsulosin 0.4 mg oral capsule 0.4 mg, 1, capsule, By Mouth, Daily, # 90 capsule, Refills 3, Tot. 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
--- OUTSIDE RECORDS SUMMARY | 2023-02-27 11:04 | XMS_ITS | Continuity of Care Document ---
Author [facility] Jason lt Address [address] [place] [address]- Care Team Providers Care Chainstitch Seat Joiner Name Role Phone Tyrese Diop MD Primary Care Physician Encounter [facility] Date(s): 03/22/21 - 03/29/21 [facility] Adult [address] [place] [address]- Encounter Diagnosis Diabetic neuropathy(Discharge Diagnosis) - 03/22/21 Insulin long-term use(Discharge Diagnosis) - 03/22/21 Attending Physician: Tyrese Diop MD Allergies, Adverse [...] Vaccine (oldterm) 01/25/05 Given 1Result Comment: [12/26/2014] [employer] sold home 2Admin Note: WORK 10- 3Admin Note: declines Medications aspirin buffered 325 [...] 0, 0, 11/21/05 16:45:48, Print TOÑITO Number, [id number], Constant Indicator Start Date: 11/21/05 Status: Ordered finasteride 5 mg oral tablet 1 tablet = 5 mg, By Mouth, Daily, # 90 tablet, 1 Refills, Soft Stop, 07/21/20 11:04:00 EDT, [facility]/pharmacy #[id number], 180, cm, 10/11/19 11:32:00 EST, Height Start Date: 07/21/20 Status: Ordered furosemide 20 mg oral tablet 20 mg, 1, tablet, By Mouth, 2 times a day, # 60 tablet, Refills 0, Tot. Refills 0, Maintenance, 03/29/21 15:14:00 EDT, Route to Pharmacy Electronically, [facility]/pharmacy #[id number], Partial fill upon patient request if the prescription is for a schedule II opi... Start Date: 03/29/21 Status: Ordered gabapentin 600 mg oral tablet 1 tablet = 600 mg, By Mouth, 3 times a day, # 270 tablet, 3 Refills, Soft Stop, 11/27/20 10:39:00 EST, [facility]/pharmacy #[id number], 180, cm, 11/27/20 9:53:00 EST, Height Start Date: 11/27/20 Status: Ordered glyBURIDE 5 mg oral tablet 10 mg, 2, tablet, By Mouth, 2 times a day, for 90 days, # 360 tablet, Refills 3, Tot. Refills 3, Hard Stop 05/20/21 16:56:00 EDT, 05/25/20 16:56:00 EDT, Route to Pharmacy Electronically, [facility]/pharmacy#[id number], 180, cm, 10/11/19 11:32:00 EST, Height Start Date: 05/25/20 Stop Date: 05/20/21 Status: Ordered glyBURIDE 5 mg oral tablet 10 mg, 2, tablet, By Mouth, 2 times a day, # 360 tablet, Refills 0, Tot. Refills 0, Maintenance, 05/20/21 16:56:00 EDT, Route to Pharmacy Electronically, [facility]/pharmacy #[id number], 180, cm, 03/22/21 11:23:00 EDT, Height Start Date: 05/20/21 Stop Date: 08/18/21 Status: Ordered Lantus Solostar Pen 100 units/mL subcutaneous solution 10 - 40 units, Subcutaneous Infusion, Daily, # 36 mL, 3 Refills, Maintenance, 11/27/20 10:40:00 EST, [id number], Partial fill upon patient request if the prescription is for a schedule II opioid drug., 180, cm, 11/27/20 9:53:00 EST, Height Start Date: 11/27/20 Status: Ordered lisinopril 40 mg oral tablet 1 tablet = 40 mg, By Mouth, Daily, # 90 tablet, 1 Refills, Soft Stop, 03/27/21 9:31:00 EDT, [facility]/pharmacy #[id number], 180, cm, 03/22/21 11:23:00 EDT, Height Start Date: 03/27/21 Status: Ordered LORazepam 1 mg oral tablet 1 tablet = 1 mg, By Mouth, 3 times a day, PRN anxiety and sleep, # 90 tablet, 2 Refills, Maintenance, 03/28/21 10:45:00 EDT, Tablet, [facility]/pharmacy #[id number], 180, cm, 03/22/21 11:23:00 EDT, Height Start Date: 03/28/21 Status: Ordered Pen [place], 31 G x 5 mm BD Ultra Fine III See Instructions, # 200 each, Refills 5, Tot. Refills 5, Maintenance, CHECK BLOOD SUGARS THREE TIMES A DAY DM TYPE2 E11.9, 08/21/20 17:20:00 EDT, Compound, 180, cm, 10/11/19 11:32:00 EST, Height Start Date: 08/21/20 Stop Date: 02/17/21 Status: Ordered tamsulosin 0.4 mg oral capsule 0.4 mg, 1, capsule, By Mouth, Daily, # 90 capsule, Refills 1, Tot. Refills 1, Maintenance, :31:00 EDT, Route to Pharmacy Electronically, [facility]/pharmacy #[id number], 180, cm, 03/22/21 11:23:00 EDT, Height [...] 12/23/12 Active OCD (obsessive compulsive disorder)(Confirmed) Active emt intermediate prescription benzo diazepine use(Confirmed) Active 1feet Diagnosis Diagnosis Type Effective Dates Health Status Clinical Service Informant Diabetic neuropathy Discharge Diagnosis 03/22/21 Insulin long-term use Discharge Diagnosis 03/22/21 Vital Signs Most recent to oldest [Reference Range]: 1 Height 180.00 cm (03/22/21 11:23 AM) Weight 110 kg (03/22/21 11:23 AM) Body Mass Index [18.5-24.99] 33.95 *>HHI* (03/22/21 11:23 AM) Social History Social History Type Response Smoking Status Never smoker entered on: 08/21/18 Sex
--- OUTSIDE RECORDS SUMMARY | 2023-02-27 11:04 | XMS_ITS | Continuity of Care Document ---
Author Name Unknown Organization [facility] Address [address] [place] [address]- Care Team Providers Care Sand Carrier Name Role Phone Chikis BARNETT, Tyrese Heard Primary Care Physician [facility]07[facility]21 [facility] [address] [place] [id number] Allergies, Adverse Reactions, Alerts Substance Reaction Severity Status metformin Active Immunizations Given and Recorded Vaccine Date Status Refusal Reason SARS-CoV-2 (COVID-19) Ad26 vaccine 02/05/21 Record ed influenza virus vaccine, inactivated 1 06/29/14 Gi daniele influenza virus vaccine, inactivated 2 10/14/13 Gi daniele Diphtheria/Tet/Pertussis, Acel (oldterm) 06/12/12 Given FluLaval (oldterm) 3 11/19/10 Given Tetanus Toxoid Vaccine (oldterm) 01/25/05 Given 1Result Comment: [12/26/2014] [email or web address] sold home 2Admin Note: WORK 10-13 3Admin Note: declines Medications abiraterone 250 mg oral tablet 4 tablet = 1,000 mg, By Mouth, Daily, # 120 tablet, 2 Refills, Maintenance, 05/29/21 14:11:00 EDT, Tablet, Partial fill upon patient request if the prescription is for a schedule II opioid drug. Start Date: 05/29/21 Status: Ordered aspirin buffered 325 mg oral tablet 1 tablet = 325 mg, By Mouth, Daily, # 30 tablet, 0 Refills, Maintenance, 01/17/17 13:47:10, Tablet Start Date: 01/17/17 Status: Ordered Centrum Silver Therapeutic Multiple Vitamins with Minerals oral tablet 1, tablet, By Mouth, Daily, 0, 0, 11/21/05 16:45:48, Print TOÑITO Number, [id number], Constant Indicator Start Date: 11/21/05 Status: Ordered finasteride 5 mg oral tablet 1 tablet, By Mouth, Daily, # 90 tablet, 3 Refills, Maintenance, 04/17/21 12:38:00 EDT, [id number], 180, cm, 04/02/21 13:41:00 EDT, Height Start Date: 04/17/21 Status: Ordered furosemide 20 mg oral tablet 20 mg, 1, tablet, By Mouth, 2 times a day, # 60 tablet, Refills 5, Tot. Refills 5, Maintenance, 04/17/21 12:28:00 EDT, Route to Pharmacy Electronically, [facility]/pharmacy #[id number], Partial fill upon patient request if the prescription is for a schedule II opi... Start Date: 04/17/21 Status: Ordered gabapentin 600 mg oral tablet 1 tablet = 600 mg, By Mouth, 3 times a day, # 270 tablet, 3 Refills, Soft Stop, 11/27/20 10:39:00 EST, [facility]/pharmacy #[id number], 180, cm, 11/27/20 9:53:00 EST, Height Start Date: 11/27/20 Status: Ordered GlyBURIDE (Eqv-DiaBeta) 5 mg oral tablet 2 tablet, By Mouth, 2 times a day, # 360 tablet, 1 Refills, Maintenance, 06/06/21 14:42:00 EDT, [facility]/pharmacy #[id number], 180, cm, 05/28/21 13:03:00 EDT, Height, 99, kg, 05/28/21 13:03:00 EDT, Dry Weight Start Date: 06/06/21 Status: Ordered Lantus Solostar Pen 100 units/mL subcutaneous solution 10 - 40 units, Subcutaneous Infusion, Daily, # 36 mL, 3 Refills, Maintenance, 11/27/20 10:40:00 EST, [facility]/pharmacy #[id number], Partial fill upon patient request if [...] sleep, # 90 tablet, 2 Refills, Maintenance, 06/07/21 9:32:00 EDT, Tablet, [facility]/pharmacy #[id number], 180, cm, 05/28/21 13:03:00 EDT, Height, 99, kg,05/28/21 13:03:00 EDT, Dry Weight Start Date: 06/07/21 Status: Ordered Pen [place], 31 G x 5 mm BD Ultra Fine III See Instructions, # 200 each, Refills 5, Tot. Refills 5, Maintenance, CHECK BLOOD SUGARS THREE TIMES A DAY DM TYPE2 E11.9, 08/21/20 17:20:00 EDT, Compound, 180, cm, 10/11/19 11:32:00 EST, Height Start Date: 08/21/20 Stop Date: 02/17/21 Status: Ordered predniSONE 5 mg oral tablet = 5 mg, By Mouth, 2 times a day, # 60 tablet, 5 Refills, Maintenance, 05/29/21 14:11:00 EDT, Tablet, [facility]/pharmacy #[id number], Partial fill upon patient request if the prescription is for a schedule II opioid drug., 180, cm, 05/28/21 13:03:00 EDT, Height, 9... Start Date: 05/29/21 Status: Ordered Readi-Cat 2 2.1% oral suspension See Instructions, 1 bottle 6 hours prior to appointment, 1 bottle 90 minutes prior to appointment, # 900 mL, 0 Refills, Maintenance, 04/06/21 15:49:00 EDT, [id number], Partial fill upon patient request if the prescription is for a schedule II... Start Date: 04/06/21 Status: Ordered tamsulosin 0.4 mg oral capsule 0.4 mg, 1, capsule, By Mouth, Daily, # 90 capsule, Refills 1, Tot. 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
--- OUTSIDE RECORDS SUMMARY | 2023-02-27 11:04 | XMS_ITS | Continuity of Care Document ---
Author Name Unknown Organization [facility] Stefano Jason lt Address [address] [place] [address]- Care Team Providers Care Commercial Credit Portfolio Manager Name Role Phone Chikis BARNETT, Tyrese Heard Primary Care Physician [facility]): 09[facility]20 - 10/23/20 [facility] Adult [address] [place] [address]- Allergies, Adverse Reactions, Alerts Substance Reaction Severity Status metformin Active Immunizations Given and Recorded Vaccine Date Status Refusal Reason influenza virus vaccine, inactivated 1 06/29/14 Gi daniele influenza virus vaccine, inactivated 2 10/14/13 Gi daniele Diphtheria/Tet/Pertussis, Acel (oldterm) 06/12/12 Given FluLaval (oldterm) 3 11/19/10 Given Tetanus Toxoid Vaccine (oldterm) 01/25/05 Given 1Result Comment: [12/26/2014] [employer] sold home 2Admin Note: WORK 10-13 3Admin Note: declines Medications aspirin buffered 325 mg oral tablet 1 tablet = 325 mg, By Mouth, Daily, # 30 tablet, 0 Refills, Maintenance, 01/17/17 13:47:10, Tablet Start Date: 01/17/17 Status: Ordered BD UF MINI PEN NEEDLE [id number] See Instructions, # 100 Unknown, Refills 5 Tot. Refills 5, USE TO INJECT LANTUS DAILY FOR 30 DAYS, [id number] Start Date: 06/04/19 Status: Ordered Caduet 10 mg-20 mg oral tablet 1 tablet, By Mouth, Daily, # 90 tablet, 1 Refills, Maintenance, hypertension and high cholesterol, 07/24/20 8:24:00 EDT, [id number], 1 tablet By Mouth Daily, 180, cm, 10/11/19 11:32:00 EST, Height Start Date: 07/24/20 Status: Ordered Centrum Silver Therapeutic Multiple Vitamins with Minerals oral tablet 1, tablet, By Mouth, Daily, 0, 0, 11/21/05 16:45:48, Print TOÑITO Number, [id number], Constant Indicator Start Date: 11/21/05 Status: Ordered finasteride 5 mg oral tablet 1 tablet = 5 mg, By Mouth, Daily, # 90 tablet, 1 Refills, Soft Stop, 07/21/20 11:04:00 EDT, [facility]/pharmacy #[id number], 180, cm, 10/11/19 11:32:00 EST, Height Start Date: 07/21/20 Status: Ordered gabapentin 600 mg oral tablet 1 tablet = 600 mg, By Mouth, 3 times a day, # 270 tablet, 1 Refills, Soft Stop, 07/24/20 17:25:00 EDT, [facility]/pharmacy #[id number], 180, cm, 10/11/19 11:32:00 EST, Height Start Date: 07/24/20 Status: Ordered glyBURIDE 5 mg oral tablet 10 mg, 2, tablet, By Mouth, 2 times a day, # 360 tablet, Refills 3, Tot. Refills 3, Maintenance, 05/25/20 16:56:00 EDT, Route to Pharmacy Electronically, [facility]/pharmacy #[id number], 180, cm, 10/11/19 11:32:00 EST, Height Start Date: 05/25/20 Stop Date: 05/20/21 Status: Ordered Lantus Solostar Pen 100 units/mL subcutaneous solution See Instructions, INJECT 10-40 U A DAY. CHK SUGAR IN AM & INCREASE 3 UNITS EVERY DAY TILL AM SUGAR LEVEL LESS THAN 170, # 45 Unknown, 5 Refills, Soft Stop, 09/23/20 20:31:00 EST, [id number], 180, cm, 10/11/19 11:32:00 EST, Height Start Date: 09/23/20 Status: Ordered lisinopril 40 mg oral tablet 1 tablet = 40 mg, By Mouth, Daily, # 90 tablet, 1 Refills, Soft Stop, 09/23/20 20:31:00 EST, [id number], 180, cm, 10/11/19 11:32:00 EST, Height Start Date: 09/23/20 Status: Ordered LORazepam 1 mg oral tablet 1 tablet = 1 mg, By Mouth, 3 times a day, PRN anxiety and sleep, # 90 tablet, 2 Refills, Maintenance, 08/21/20 17:16:00 EDT, Tablet, [facility]/pharmacy #[id number], 180, cm, 10/11/19 11:32:00 EST, Height Start Date: 08/21/20 Status: Ordered Pen [place], 31 G x 5 mm BD Ultra Fine III See Instructions, # 200 each, Refills 5, Tot. Refills 5, Maintenance, CHECK BLOOD SUGARS THREE TIMES A DAY DM TYPE2 E11.9, 08/21/20 17:20:00 EDT, Compound, 180, cm, 10/11/19 11:32:00 EST, Height Start Date: 08/21/20 Stop Date: 02/17/21 Status: Ordered Pen [place], 31 G x 5 mm BD Ultra Fine III See Instructions, # 1 box, Refills 5, Tot. Refills 5, Maintenance, use as directed for injection oflantus solostar, 03/31/18 16:32:05 EDT, Compound Start Date: 03/31/18 Stop Date: 09/27/18 Status: Ordered tamsulosin 0.4 mg oral capsule 0.4 mg, 1, capsule, By Mouth, Daily, # 90 capsule, Refills 1, Tot. Refills 1, Maintenance, 09/23/2020:31:00 EST, Route to Pharmacy Electronically, [facility]/pharmacy #[id number], 180, cm, 10/11/19 11:32:00 EST,Height Start Date: 09/23/20 Status: Ordered Problem List Condition Effective Dates [...] 12/23/12 Active OCD (obsessive compulsive disorder)(Confirmed) Active [facility] prescription benzo 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
--- OUTSIDE RECORDS SUMMARY | 2023-02-27 11:04 | XMS_ITS | Continuity of Care Document ---
Author Name Unknown Organization [facility] Stefano Jason lt Address [address] [place] [address]- Care Team Providers Care Spinner Iron Name Role Phone Chikis BARNETT, Tyrese Heard Primary Care Physician [phone] [facility] - 06/18/20 [facility] Adult [address] [place] [address]- [facility] Allergies, Adverse Reactions, Alerts Substance Reaction Severity Status metformin Active Immunizations Given and Recorded Vaccine Date Status Refusal Reason influenza virus vaccine, inactivated 1 06/29/14 Gi daniele influenza virus vaccine, inactivated 2 10/14/13 Gi daniele Diphtheria/Tet/Pertussis, Acel (oldterm) 06/12/12 Given FluLaval (oldterm) 3 11/19/10 Given Tetanus Toxoid Vaccine (oldterm) 01/25/05 Given 1Result Comment: [12/26/2014] [employer] sold home 2Admin Note: WORK 10-13 3Admin Note: declines Medications aspirin buffered 325 mg oral tablet 1 tablet = 325 mg, By Mouth, Daily, # 30 tablet, 0 Refills, Maintenance, 01/17/17 13:47:10, Tablet Start Date: 01/17/17 Status: Ordered BD UF MINI PEN NEEDLE [id number] See Instructions, # 100 Unknown, Refills 5 Tot. Refills 5, USE TO INJECT LANTUS DAILY FOR 30 DAYS, [id number] Start Date: 06/04/19 Status: Ordered Caduet 10 mg-20 mg oral tablet 1 tablet, By Mouth, Daily, APPOINTMENT NEEDED FOR ADDITIONAL REFILLS, # 90 tablet, 1 Refills, Maintenance, hypertension and high cholesterol, 03/01/20 12:50:00 EDT, [id number], 1 tablet By Mouth Daily,Instr:APPOINTMENT NEEDED FOR ADDITIONAL RE... Start Date: 03/01/20 Status: Ordered Centrum Silver Therapeutic Multiple Vitamins with Minerals oral tablet 1, tablet, By Mouth, Daily, 0, 0, 11/21/05 16:45:48, Print TOÑITO Number, [id number], Constant Indicator Start Date: 11/21/05 Status: Ordered finasteride 5 mg oral tablet 1 tablet = 5 mg, By Mouth, Daily, # 90 tablet, 1 Refills, Soft Stop, 02/04/20 9:46:00 EDT, [facility]/pharmacy #[id number], 180, cm, 10/11/19 11:32:00 EST, [...] 05/25/20 16:56:00 EDT, Route to [facility], [id number], 180, cm, 10/11/19 11:32:00 EST, [...] sleep, # 90 tablet, 2 Refills, Maintenance, 05/20/20 11:14:00 EDT, Tablet, [id number], 180, cm, 10/11/19 11:32:00 EST, Height Start Date: 05/20/20 Status: Ordered Pen [place], 31 G x 5 mm BD Ultra Fine III See Instructions, # 1 box, Refills 5, Tot. Refills 5, Maintenance, use as directed for injection oflantus solostar, 03/31/18 16:32:05 EDT, Compound Start Date: 03/31/18 Stop Date: 09/27/18 Status: Ordered Pen [place], 31 G x 5 mm BD Ultra Fine III See Instructions, # 200 each, Refills 5, Tot. Refills 5, Maintenance, Use one daily for Type 2 Diabetes Mellitus E11.9, 01/12/18 16:07:52, Compound Start Date: 01/12/18 Stop Date: 07/11/18 Status: Ordered tamsulosin 0.4 mg oral capsule 0.4 mg, 1, capsule, By Mouth, Daily, # 90 capsule, Refills 1, Tot. Refills 1, Maintenance, 04/27/2013:47:00 EDT, Route to Pharmacy Electronically, [facility]/pharmacy #[id number], 180, cm, 10/11/19 11:32:00 EST,Height Start Date: 04/27/20 Status: Ordered Problem List Condition Effective Dates [...] 12/23/12 Active OCD (obsessive compulsive disorder)(Confirmed) Active half-way prescription benzo 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
--- OUTSIDE RECORDS SUMMARY | 2023-02-27 11:04 | XMS_ITS | Continuity of Care Document ---
Author Name Unknown Organization [facility] Jason lt Address [address] [place] [address]- Care Team Providers Care Structural Steel Fitter Name Role Phone Chikis BARNETT, Tyrese Heard Primary Care Physician [facility]21 - 05/02/21 [facility] Adult [address] [place] [address]- Attending Physician: Admtr, Ar8 Admitting Physician: Admtr, Ar8 Referring Physician: Admtr, Ar8 Allergies, Adverse Reactions, Alerts Substance Reaction Severity Status metformin Active Immunizations Given and Recorded Vaccine Date Status Refusal Reason SARS-CoV-2 (COVID-19) Ad26 vaccine 02/05/21 Record ed influenza virus vaccine, inactivated 1 06/29/14 Gi daniele influenza virus vaccine, inactivated 2 10/14/13 Gi daniele Diphtheria/Tet/Pertussis, Acel (oldterm) 06/12/12 Given FluLaval (oldterm) 3 11/19/10 Given Tetanus Toxoid Vaccine (oldterm) 01/25/05 Given 1Result Comment: [12/26/2014] [employer] sold home 2Admin Note: WORK 10-13 3Admin [...] 0, 0, 11/21/05 16:45:48, Print TOÑITO Number, [id number], Constant Indicator Start Date: 11/21/05 Status: Ordered finasteride 5 mg oral tablet 1 tablet, By Mouth, Daily, # 90 tablet, 3 Refills, Maintenance, 04/17/21 12:38:00 EDT, [id number], 180, cm, 04/02/21 13:41:00 EDT, Height Start Date: 04/17/21 Status: Ordered furosemide 20 mg oral tablet 20 mg, 1, tablet, By Mouth, 2 times a day, # 60 tablet, Refills 5, Tot. Refills 5, Maintenance, 04/17/21 12:28:00 EDT, Route to Pharmacy Electronically, [facility]/pharmacy #[id number], Partial fill upon patient request if the prescription is for a schedule II opi... Start Date: 04/17/21 Status: Ordered gabapentin 600 mg oral tablet 1 tablet = 600 mg, By Mouth, 3 times a day, # 270 tablet, 3 Refills, Soft Stop, 11/27/20 10:39:00 EST, [facility]/pharmacy #[id number], 180, cm, 11/27/20 9:53:00 EST, Height Start Date: 11/27/20 Status: Ordered glyBURIDE 5 mg oral tablet 10 mg, 2, tablet, By Mouth, 2 times a day, for 90 days, # 360 tablet, Refills 3, Tot. Refills 3, Hard Stop 05/20/21 16:56:00 EDT, 05/25/20 16:56:00 EDT, Route to Pharmacy Electronically, [facility]/pharmacy#[id number], 180, cm, 10/11/19 11:32:00 EST, Height Start Date: 05/25/20 Stop Date: 05/20/21 Status: Ordered glyBURIDE 5 mg oral tablet 10 mg, 2, tablet, By Mouth, 2 times a day, # 360 tablet, Refills 0, Tot. Refills 0, Maintenance, 05/20/21 16:56:00 EDT, Route to Pharmacy Electronically, [facility]/pharmacy #[id number], 180, cm, 03/22/21 11:23:00 EDT, Height Start Date: 05/20/21 Stop Date: 08/18/21 Status: Ordered Lantus Solostar Pen 100 units/mL subcutaneous solution 10 - 40 units, Subcutaneous Infusion, Daily, # 36 mL, 3 Refills, Maintenance, 11/27/20 10:40:00 EST, [facility]/pharmacy #[id number], Partial fill upon patient request if the prescription is for a schedule II opioid drug., 180, cm, 11/27/20 9:53:00 EST, Height Start Date: 11/27/20 Status: Ordered lisinopril 40 mg oral tablet 1 tablet = 40 mg, By Mouth, Daily, # 90 tablet, 1 Refills, Soft Stop, 03/27/21 9:31:00 EDT, [facility]/pharmacy #[id number], 180, cm, 03/22/21 11:23:00 EDT, Height Start Date: 03/27/21 Status: Ordered LORazepam 1 mg oral tablet 1 tablet = 1 mg, By Mouth, 3 times a day, PRN anxiety and sleep, # 90 tablet, 2 Refills, Maintenance, 03/28/21 10:45:00 EDT, Tablet, [facility]/pharmacy #[id number], 180, cm, 03/22/21 11:23:00 EDT, Height Start Date: 03/28/21 Status: Ordered Pen [place], 31 G x 5 mm BD Ultra [...] mL, 0 Refills, Maintenance, 04/06/21 15:49:00 EDT, [facility]/pharmacy #[id number], Partial fill upon patient request if the prescription is for a schedule II... Start Date: 04/06/21 Status: Ordered tamsulosin 0.4 mg oral capsule 0.4 mg, 1, capsule, By Mouth, Daily, # 90 capsule, Refills 1, Tot. Refills 1, Maintenance, 06/01/219:31:00 EDT, Route to Pharmacy Electronically, [facility]/pharmacy #[id number], 180, cm, 03/22/21 11:23:00 EDT, [...] 12/23/12 Active OCD (obsessive compulsive disorder)(Confirmed) Active long-term prescription benzo 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
--- OUTSIDE RECORDS SUMMARY | 2023-02-27 11:04 | XMS_ITS | Continuity of Care Document ---
Author Name Unknown Organization [facility] Stefano Jason lt Address [address] [place] [address]- Care Team Providers Care Home Sales Consultant Name Role Phone Tyrese Diop MD Primary Care Physician [facility] - 10[facility]18[facility]19 [facility] Adult [address] [place] [address]- [facility] Encounter Diagnosis General medical exam(Discharge Diagnosis) - 10/11/19 Benign hypertension(Discharge Diagnosis) - 10/11/19 Obesity(Discharge Diagnosis) - 10/11/19 OCD (obsessive compulsive disorder)(Discharge Diagnosis) - 10/11/19 Chronic post-traumatic stress disorder(Discharge Diagnosis) - 10/11/19 retirement prescription benzodiazepine use(Discharge Diagnosis) - 10/11/19 Diabetic neuropathy(Discharge Diagnosis) - 10/11/19 Insulin long-term use(Discharge Diagnosis) - 10/11/19 Depression, major(Discharge Diagnosis) - 10/11/19 BPH (benign prostatic hyperplasia)(Discharge Diagnosis) - 10/11/19 Attending Physician: Tyrese Diop MD Allergies, Adverse Reactions, Alerts Substance Reaction Severity Status metformin Active Immunizations Given and Recorded Vaccine Date Status Refusal Reason influenza virus vaccine, inactivated 1 06/29/14 Gi daniele influenza virus vaccine, inactivated 2 10/14/13 Gi daniele Diphtheria/Tet/Pertussis, Acel (oldterm) 06/12/12 Given FluLaval (oldterm) 3 11/19/10 Given Tetanus Toxoid Vaccine (oldterm) 01/25/05 Given 1Result Comment: [12/26/2014] [employer] sold home 2Admin Note: WORK 10- 3Admin Note: declines Medications aspirin buffered 325 mg oral tablet 1 tablet = 325 mg, By Mouth, Daily, # 30 tablet, 0 Refills, Maintenance, 01/17/17 13:47:10, Tablet Start Date: 01/17/17 Status: Ordered BD UF MINI PEN NEEDLE [id number] See Instructions, # 100 Unknown, Refills 5 Tot. Refills 5, USE TO INJECT LANTUS DAILY FOR 30 DAYS, [facility]/pharmacy #[id number] Start Date: 06/04/19 Status: Ordered Caduet 10 mg-20 mg oral tablet 1 tablet, By Mouth, Daily, # 90 tablet, 3 Refills, Maintenance, hypertension and high cholesterol, 11/23/18 11:55:34 EST, 1 tablet By Mouth Daily Start Date: 11/23/18 Status: Ordered Centrum Silver Therapeutic Multiple Vitamins with Minerals oral tablet 1, tablet, By Mouth, Daily, 0, 0, 11/21/05 16:45:48, Print TOÑITO Number, [id number], Constant Indicator Start Date: 11/21/05 Status: Ordered finasteride 5 mg oral tablet See Instructions, # 90 tablet, Refills 1 Tot. Refills 1, TAKE 1 TABLET BY MOUTH EVERY DAY, [facility]/pharmacy #[id number] Start Date: 08/06/19 Status: Ordered gabapentin 600 mg oral tablet See Instructions, # 270 tablet, Refills 11 Tot. Refills 11, TAKE 1 TABLET BY MOUTH 3 TIMES A DAY, [facility]/pharmacy #[id number] Start Date: 06/10/19 Status: Ordered glyBURIDE 5 mg oral tablet 10 mg, 2, tablet, By Mouth, 2 times a day, for 90 days, # 360 tablet, Refills 3, Tot. Refills 3, Acute 03/26/20 12:02:31 EDT, 04/01/19 12:02:31 EDT, Route to Pharmacy Electronically, [id number], [facility]/pharmacy #[id number] Start Date: 04/01/19 Stop Date: 03/26/20 Status: Ordered Lantus Solostar Pen 100 units/mL subcutaneous solution See Instructions, # 45 Unknown, Refills 5 Tot. Refills 5, INJECT 10-40 U A DAY. CHK SUGAR IN AM & INCREASE 3 UNITS EVERY DAY TILL AM SUGAR LEVEL LESS THAN 170, [facility]/pharmacy #[id number] Start Date: 08/31/19 Status: Ordered lisinopril 40 mg oral tablet See Instructions, # 90 tablet, Refills 1 Tot. Refills 1, TAKE 1 TABLET BY MOUTH EVERY DAY, [id number] Start Date: 06/10/19 Status: Ordered LORazepam 1 mg oral tablet 1 tablet = 1 mg, By Mouth, 3 times a day, PRN anxiety and sleep, # 90 tablet, 2 Refills, Maintenance, 08/04/19 9:18:00 EDT, Tablet Start Date: 08/04/19 Status: Ordered Pen [place], 31 G x 5 mm BD Ultra Fine III See Instructions, # 1 box, Refills 5, Tot. Refills 5, Maintenance, use as directed for injection oflantus solostar, 03/31/18 16:32:05 EDT, Compound Start Date: 03/31/18 Stop Date: 09/27/18 Status: Ordered Pen [place], 31 G x 5 mm BD Ultra Fine III See Instructions, # 200 each, Refills 5, Tot. Refills 5, Maintenance, Use one daily for Type 2 Diabetes Mellitus E11.9, 01/12/18 16:07:52, Compound Start Date: 01/12/18 Stop Date: 07/11/18 Status: Ordered tamsulosin 0.4 mg oral capsule 0.4 mg, 1, capsule, By Mouth, Daily, # 90 capsule, Refills 3, Tot. Refills 3, Maintenance, :29:07 EDT, Route to Pharmacy Electronically, [id number], [id number] Start Date: 05/14/19 Status: Ordered [...] 12/23/12 Active OCD (obsessive compulsive disorder)(Confirmed) Active retirement prescription benzo diazepine use(Confirmed) Active 1feet Diagnosis Diagnosis Type Effective Dates Health Status Clinical Service Informant Depression, major Discharge Diagnosis 10/11/19 Diabetic neuropathy Discharge Diagnosis 10/11/19 Insulin long-term use Discharge Diagnosis 10/11/19 OCD (obsessive compulsive disorder) Discharge Diagnosis 10/11/19 Chronic post-traumatic stress disorder Discharge Diagnosis 10/11/19 retirement prescription benzodiazepine use Discharge Diagnosis 10/11/19 Obesity Discharge Diagnosis 10/11/19 Benign hypertension Discharge Diagnosis 10/11/19 General medical exam Discharge Diagnosis 10/11/19 BPH (benign prostatic hyperplasia) Discharge Diagnosis 10/11/19 Vital Signs Most recent to oldest [Reference Range]: 1 Height 180.00 cm (10/11/19 11:32 AM) Weight 120.1 kg (10/11/19 11:32 AM) Oxygen Saturation [94-100 %] 98 % (10/11/19 11:32 AM) Pulse Rate [55-90 bpm] 74 bpm (10/11/19 11:32 AM) Body Mass Index [18.5-24.99] 37.07 *>HHI* (10/11/19 11:32 AM) Blood Pressure [90-138/55-84 mm Hg] 116/ 64mm Hg (10/11/19 11:32 AM) Temperature [96.8-100.4 DegF] 98.1 DegF (10/11/19 11:32 AM) Mode of Delivery (Oxygen) Room air (10/11/19 11:32 AM) Blood pressure sites Arm, left (10/11/19 11:32 AM) Temperature Route Oral (10/11/19 11:32 AM) Weight Obtained Via Standing scale (10/11/19 11:32 AM) Social History Social History Type Response Smoking Status Never smoker entered on: 08/21/18 Sex
--- OUTSIDE RECORDS SUMMARY | 2023-02-27 11:04 | XMS_ITS | Continuity of Care Document ---
Author Name Unknown Organization [facility] Jason lt Address [address] [place] [address]- Care Team Providers Care Shop Mechanic Name Role Phone Tyrese Diop MD Primary Care Physician Encounter [facility] [place] Date(s): 04/02/21 - 04/09/21 [facility] Adult [address] [place] [address]- Encounter Diagnosis Leg edema(Discharge Diagnosis) - 04/02/21 Bone pain(Discharge Diagnosis) - 04/02/21 Abdominal mass(Discharge Diagnosis) - 04/02/21 Elevated alkaline phosphatase level(Discharge Diagnosis) - 04/02/21 Attending Physician: Tyrese Diop MD Allergies, Adverse [...] Vaccine (oldterm) 01/25/05 Given 1Result Comment: [12/26/2014] [employer] sold home 2Admin Note: WORK 10- 3Admin Note: declines Medications aspirin buffered 325 mg oral tablet 1 tablet = 325 mg, By Mouth, Daily, # 30 tablet, 0 Refills, Maintenance, 01/17/17 13:47:10, Tablet Start Date: 01/17/17 Status: Ordered Caduet 10 mg-20 mg oral tablet 1 tablet, By Mouth, Daily, # 90 tablet, 3 Refills, Maintenance, hypertension and high cholesterol, 11/27/20 10:39:00 EST, [facility]/pharmacy #[id number], 1 tablet By Mouth Daily, 180, cm, 11/27/20 9:53:00 EST, Height Start Date: 11/27/20 Status: Ordered Centrum Silver Therapeutic Multiple Vitamins with Minerals oral tablet 1, tablet, By Mouth, Daily, 0, 0, 11/21/05 16:45:48, Print TOÑITO Number, [id number], Constant Indicator Start Date: 11/21/05 Status: Ordered finasteride 5 mg oral tablet 1 tablet = 5 mg, By Mouth, Daily, # 90 tablet, 1 Refills, Soft Stop, 07/21/20 11:04:00 EDT, [facility]/pharmacy #[id number], 180, cm, 10/11/19 11:32:00 EST, Height Start Date: 07/21/20 Status: Ordered furosemide 20 mg oral tablet 20 mg, 1, tablet, By Mouth, 2 times a day, # 60 tablet, Refills 0, Tot. Refills 0, Maintenance, 03/29/21 15:14:00 EDT, Route to Pharmacy Electronically, [facility]/pharmacy #[id number], Partial fill upon patient request if the prescription is for a schedule II opi... Start Date: 03/29/21 Status: Ordered gabapentin 600 mg oral tablet 1 tablet = 600 mg, By Mouth, 3 times a day, # 270 tablet, 3 Refills, Soft Stop, 11/27/20 10:39:00 EST, [facility]/pharmacy #[id number], 180, cm, 11/27/20 9:53:00 EST, Height Start Date: 11/27/20 Status: Ordered glyBURIDE 5 mg oral tablet 10 mg, 2, tablet, By Mouth, 2 times a day, for 90 days, # 360 tablet, Refills 3, Tot. Refills 3, Hard Stop 05/20/21 16:56:00 EDT, 05/25/20 16:56:00 EDT, Route to Pharmacy Electronically, [facility]/pharmacy#[id number], 180, cm, 10/11/19 11:32:00 EST, Height Start Date: 05/25/20 Stop Date: 05/20/21 Status: Ordered glyBURIDE 5 mg oral tablet 10 mg, 2, tablet, By Mouth, 2 times a day, # 360 tablet, Refills 0, Tot. Refills 0, Maintenance, 05/20/21 16:56:00 EDT, Route to Pharmacy Electronically, [facility]/pharmacy #[id number], 180, cm, 03/22/21 11:23:00 EDT, Height Start Date: 05/20/21 Stop Date: 08/18/21 Status: Ordered Lantus Solostar Pen 100 units/mL subcutaneous solution 10 - 40 units, Subcutaneous Infusion, Daily, # 36 mL, 3 Refills, Maintenance, 11/27/20 10:40:00 EST, [facility]/pharmacy #[id number], Partial fill upon patient request if the prescription is for a schedule II opioid drug., 180, cm, 11/27/20 9:53:00 EST, Height Start Date: 11/27/20 Status: Ordered lisinopril 40 mg oral tablet 1 tablet = 40 mg, By Mouth, Daily, # 90 tablet, 1 Refills, Soft Stop, 03/27/21 9:31:00 EDT, [facility]/pharmacy #[id number], 180, cm, 03/22/21 11:23:00 EDT, Height Start Date: 03/27/21 Status: Ordered LORazepam 1 mg oral tablet 1 tablet = 1 mg, By Mouth, 3 times a day, PRN anxiety and sleep, # 90 tablet, 2 Refills, Maintenance, 03/28/21 10:45:00 EDT, Tablet, [facility]/pharmacy #[id number], 180, cm, 03/22/21 11:23:00 EDT, Height Start Date: 03/28/21 Status: Ordered Pen [place], 31 G x 5 mm BD Ultra [...] mL, 0 Refills, Maintenance, 04/06/21 15:49:00 EDT, [facility]/pharmacy #[id number], Partial fill upon patient request if the prescription is for a schedule II... Start Date: 04/06/21 Status: Ordered tamsulosin 0.4 mg oral capsule 0.4 mg, 1, capsule, By Mouth, Daily, # 90 capsule, Refills 1, Tot. Refills 1, Maintenance, 219:31:00 EDT, Route to Pharmacy Electronically, [facility]/pharmacy #[id number], 180, cm, 03/22/21 11:23:00 EDT, [...] 12/23/12 Active OCD (obsessive compulsive disorder)(Confirmed) Active jail prescription benzo diazepine use(Confirmed) Active 1feet Diagnosis Diagnosis Type Effective Dates Health Status Clinical Service Informant Leg edema Discharge Diagnosis 04/02/21 Bone pain Discharge Diagnosis 04/02/21 Abdominal mass Discharge Diagnosis 04/02/21 Elevated alkaline phosphatase level Discharge Diagnosis 04/02/21 Vital Signs Most recent to oldest [Reference Range]: 1 Height 180.00 cm (04/02/21 1:41 PM) Weight 116.9 kg (04/02/21 1:41 PM) Oxygen Saturation [94-100 %] 98 % (04/02/21 1:41 PM) Pulse Rate [55-90 bpm] 94 bpm *H* (04/02/21 1:41 PM) Body Mass Index [18.5-24.99] 36.08 *>HHI* (04/02/21 1:41 PM) Blood Pressure [90-138/55-84 mm Hg] 138/ 56mm Hg (04/02/21 1:41 PM) Temperature [96.8-100.4 DegF] 98.9 DegF (04/02/21 1:41 PM) Mode of Delivery (Oxygen) Room air (04/02/21 1:41 PM) Blood pressure sites Arm, left (04/02/21 1:41 PM) Temperature Route Oral (04/02/21 1:41 PM) Weight Obtained Via Standing scale (04/02/21 1:41 PM) Social History Social History Type Response Smoking Status Never smoker entered on: 08/21/18 Sex
--- OUTSIDE RECORDS SUMMARY | 2023-02-27 11:04 | XMS_ITS | Continuity of Care Document ---
Author Name Unknown Organization [facility] Jason lt Address [address] [place] [address]- Care Team Providers Care Synthetic Filament Extruder Name Role Phone Chikis BARNETT, Tyrese Heard Primary Care Physician Encounter [facility] Date(s): 03/27/21 - 04/26/21 [facility] Adult [address] [place] [address]- Allergies, Adverse Reactions, Alerts Substance Reaction Severity Status metformin Active Immunizations Given and Recorded Vaccine Date Status Refusal Reason SARS-CoV-2 (COVID-19) Ad26 vaccine 02/05/21 Record ed influenza virus vaccine, inactivated 1 06/29/14 Gi daniele influenza virus vaccine, inactivated 2 10/14/13 Gi daniele Diphtheria/Tet/Pertussis, Acel (oldterm) 06/12/12 Given FluLaval (oldterm) 3 11/19/10 Given Tetanus Toxoid Vaccine (oldterm) 01/25/05 Given 1Result Comment: [12/26/2014] [employer] sold home 2Admin Note: WORK 10-13 3Admin [...] 0, 0, 11/21/05 16:45:48, Print TOÑITO Number, [id number], Constant Indicator Start Date: 11/21/05 Status: Ordered finasteride 5 mg oral tablet 1 tablet, By Mouth, Daily, # 90 tablet, 3 Refills, Maintenance, 04/17/21 12:38:00 EDT, [facility] STORE [id number], 180, cm, 04/02/21 13:41:00 EDT, Height Start Date: 04/17/21 Status: Ordered furosemide 20 mg oral tablet 20 mg, 1, tablet, By Mouth, 2 times a day, # 60 tablet, Refills 5, Tot. Refills 5, Maintenance, 04/17/21 12:28:00 EDT, Route to Pharmacy Electronically, [facility]/pharmacy #[id number], Partial fill upon patient request if the prescription is for a schedule II opi... Start Date: 04/17/21 Status: Ordered gabapentin 600 mg oral tablet 1 tablet = 600 mg, By Mouth, 3 times a day, # 270 tablet, 3 Refills, Soft Stop, 11/27/20 10:39:00 EST, [facility]/pharmacy #[id number], 180, cm, 11/27/20 9:53:00 EST, Height Start Date: 11/27/20 Status: Ordered glyBURIDE 5 mg oral tablet 10 mg, 2, tablet, By Mouth, 2 times a day, for 90 days, # 360 tablet, Refills 3, Tot. Refills 3, Hard Stop 05/20/21 16:56:00 EDT, 05/25/20 16:56:00 EDT, Route to Pharmacy Electronically, [facility]/pharmacy#[id number], 180, cm, 10/11/19 11:32:00 EST, Height Start Date: 05/25/20 Stop Date: 05/20/21 Status: Ordered glyBURIDE 5 mg oral tablet 10 mg, 2, tablet, By Mouth, 2 times a day, # 360 tablet, Refills 0, Tot. Refills 0, Maintenance, 05/20/21 16:56:00 EDT, Route to Pharmacy Electronically, [facility]/pharmacy #[id number], 180, cm, 03/22/21 11:23:00 EDT, Height Start Date: 05/20/21 Stop Date: 08/18/21 Status: Ordered Lantus Solostar Pen 100 units/mL subcutaneous solution 10 - 40 units, Subcutaneous Infusion, Daily, # 36 mL, 3 Refills, Maintenance, 11/27/20 10:40:00 EST, [facility]/pharmacy #[id number], Partial fill upon patient request [...] 2 Refills, Maintenance, 03/28/21 10:45:00 EDT, Tablet, [facility]/pharmacy #[id number], 180, cm, 03/22/21 11:23:00 EDT, Height Start Date: 03/28/21 Status: Ordered Pen [place], 31 G x 5 mm BD Ultra [...] mL, 0 Refills, Maintenance, 04/06/21 15:49:00 EDT, [facility]/pharmacy #[id number], Partial fill upon patient request if the prescription is for a schedule II... Start Date: 04/06/21 Status: Ordered tamsulosin 0.4 mg oral capsule 0.4 mg, 1, capsule, By Mouth, Daily, # 90 capsule, Refills 1, Tot. Refills 1, Maintenance, :31:00 EDT, Route to Pharmacy Electronically, [facility]/pharmacy #[id number], 180, cm, 03/22/21 11:23:00 EDT, [...]
--- OUTSIDE RECORDS SUMMARY | 2023-02-27 11:04 | XMS_ITS | Continuity of Care Document ---
Author Name Unknown Organization [facility] [place] Jason lt Address [address] [place] [address]- Care Team Providers Care Electric Cell Tender Name Role Phone Melissa Dior Primary Care Physician Encounter [facility] [place] Date(s): 11/06/21 - 12/06/21 [facility] [place] Adult [address] [place] [address]- Allergies, Adverse Reactions, Alerts Substance Reaction Severity Status metformin Active Immunizations Given and Recorded Vaccine Date Status Refusal Reason SARS-CoV-2 (COVID-19) Ad26 vaccine 02/05/21 Record ed influenza virus vaccine, inactivated 1 06/29/14 Gi daniele influenza virus vaccine, inactivated 2 10/14/13 Gi daniele Diphtheria/Tet/Pertussis, Acel (oldterm) 06/12/12 Given FluLaval (oldterm) 3 11/19/10 Given Tetanus Toxoid Vaccine (oldterm) 01/25/05 Given 1Result Comment: [12/26/2014] darcy[employer]ormis sold home 2Admin Note: WORK 10-13 3Admin [...] 0, 0, 11/21/05 16:45:48, Print TOÑITO Number, [id number], Constant Indicator Start Date: 11/21/05 Status: Ordered finasteride 5 mg oral tablet 1 tablet, By Mouth, Daily, # 90 tablet, 3 Refills, Maintenance, 04/17/21 12:38:00 EDT, [id number], 180, cm, 04/02/21 13:41:00 EDT, Height Start Date: 04/17/21 Status: Ordered furosemide 20 mg oral tablet 1, tablet, By Mouth, 2 times a day, # 180 tablet, Refills 1, Route to Pharmacy Electronically, [id number], 180, cm, 05/28/21 13:03:00 EDT, Height, 99, kg, 05/28/21 13:03:00 EDT, Dry Weight Start Date: 09/27/21 Status: Ordered gabapentin 600 mg oral tablet 1 tablet, By Mouth, 3 times a day, # 270 tablet, 3 Refills, [facility], 180, cm, 05/28/21 13:03:00 EDT, Height, 99, kg, 05/28/21 13:03:00 EDT, Dry Weight Start Date: 09/28/21 Status: Ordered GlyBURIDE (Eqv-DiaBeta) 5 mg oral tablet 2 tablet, By Mouth, 2 times a day, # 360 tablet, 1 Refills, [facility], 180, cm, 05/28/21 13:03:00 EDT, Height, 99, kg, 05/28/21 13:03:00 EDT, Dry Weight Start Date: 09/27/21 Status: Ordered Lantus Solostar Pen 100 units/mL subcutaneous solution 10 - 40 units, Subcutaneous Infusion, Daily, # 36 mL, 3 Refills, Maintenance, 11/27/20 10:40:00 EST, [facility]/pharmacy #[id number], Partial fill upon patient request if the prescription is for a schedule II opioid drug., 180, cm, 11/27/20 9:53:00 EST, Height Start Date: 11/27/20 Status: Ordered lisinopril 40 mg oral tablet 1 tablet, By Mouth, Daily, # 90 tablet, 1 Refills, [facility], 180, cm, 05/28/21 13:03:00 EDT,Height, 99, kg, 05/28/21 13:03:00 EDT, Dry Weight Start Date: 09/27/21 Status: Ordered LORazepam 1 mg oral tablet 1 tablet = 1 mg, By Mouth, 3 times a day, PRN anxiety and sleep, # 90 tablet, 2 Refills, Maintenance, 06/07/21 9:32:00 EDT, Tablet, [facility]/pharmacy #[id number], 180, cm, 05/28/21 13:03:00 EDT, Height, 99, kg,05/28/21 13:03:00 EDT, Dry Weight Start Date: 06/07/21 Status: Ordered Pen [place], 31 G x 5 mm BD Ultra [...] 5 Refills, Maintenance, 05/29/21 14:11:00 EDT, Tablet, [facility]/pharmacy #[id number], Partial fill upon patient request [...] Status: Ordered tamsulosin 0.4 mg oral capsule 1, capsule, By Mouth, Daily, # 90 capsule, Refills 1, Route to Pharmacy Electronically, 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
--- OUTSIDE RECORDS SUMMARY | 2023-02-27 11:04 | XMS_ITS | Continuity of Care Document ---
Author Name Unknown Organization [facility] Address [address] [place] [address]- Care Team Providers Care Regional Otr Company Driver Name Role Phone Chikis BARNETT, Tyrese Heard Primary Care Physician Encounter [facility] [place] Date(s): 04/16/21 - 08/11/21 [facility] [address] [place] [id number] Discharge Disposition: A-D/C Home Attending Physician: Staci Hines MD Admitting Physician: Staci Hines MD Referring Physician: Navneet Oliva MD Allergies, Adverse Reactions, Alerts Substance Reaction Severity Status metformin Active Immunizations Given and Recorded Vaccine Date Status Refusal Reason SARS-CoV-2 (COVID-19) Ad26 vaccine 02/05/21 Record ed influenza virus vaccine, inactivated 1 06/29/14 Gi daniele influenza virus vaccine, inactivated 2 10/14/13 Gi daniele Diphtheria/Tet/Pertussis, Acel (oldterm) 06/12/12 Given FluLaval (oldterm) 3 11/19/10 Given Tetanus Toxoid Vaccine (oldterm) 01/25/05 Given 1Result Comment: [12/26/2014] [employer] sold home 2Admin Note: WORK 10-13 3Admin [...] 0, 0, 11/21/05 16:45:48, Print TOÑITO Number, [id number], Constant Indicator Start Date: 11/21/05 Status: Ordered finasteride 5 mg oral tablet 1 tablet, By Mouth, Daily, # 90 tablet, 3 Refills, Maintenance, 04/17/21 12:38:00 EDT, [id number], 180, cm, 04/02/21 13:41:00 EDT, Height Start Date: 04/17/21 Status: Ordered furosemide 20 mg oral tablet 20 mg, 1, tablet, By Mouth, 2 times a day, # 60 tablet, Refills 5, Tot. Refills 5, Maintenance, 04/17/21 12:28:00 EDT, Route to Pharmacy Electronically, [facility]/pharmacy #[id number], Partial fill upon patient request if the prescription is for a schedule II opi... Start Date: 04/17/21 Status: Ordered gabapentin 600 mg oral tablet 1 tablet = 600 mg, By Mouth, 3 times a day, # 270 tablet, 3 Refills, Soft Stop, 11/27/20 10:39:00 EST, [id number], 180, cm, 11/27/20 9:53:00 EST, Height Start Date: 11/27/20 Status: Ordered GlyBURIDE (Eqv-DiaBeta) 5 mg oral tablet 2 tablet, By Mouth, 2 times a day, # 360 tablet, 1 Refills, Maintenance, 06/06/21 14:42:00 EDT, [facility]/pharmacy #[id number], 180, cm, 05/28/21 13:03:00 EDT, Height, 99, kg, 05/28/21 13:03:00 EDT, Dry Weight Start Date: 06/06/21 Status: Ordered Lantus Solostar Pen 100 units/mL subcutaneous solution 10 - 40 units, Subcutaneous Infusion, Daily, # 36 mL, 3 Refills, Maintenance, 11/27/20 10:40:00 EST, [facility]/pharmacy #[id number], Partial fill upon patient request [...] 2 Refills, Maintenance, 06/07/21 9:32:00 EDT, Tablet, [id number], 180, cm, 05/28/21 13:03:00 EDT, Height, 99, kg,05/28/21 13:03:00 EDT, Dry Weight Start Date: 06/07/21 Status: Ordered Pen [place], 31 G x 5 mm BD Ultra [...] 5 Refills, Maintenance, 05/29/21 14:11:00 EDT, Tablet, [id number], Partial fill upon patient request [...] Maintenance, 219:31:00 EDT, Route to Pharmacy Electronically, [facility]/pharmacy #[id number], 180, cm, 03/22/21 11:23:00 EDT, [...] 12/23/12 Active OCD (obsessive compulsive disorder)(Confirmed) 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 benzo diazepine use(Confirmed) Active 1feet Vital Signs Most recent to oldest [Reference Range]: 1 2 Height 180.00 cm (05/28/21 1:03 PM) 180.00 cm (05/08/21 9:57 AM) Weight 99.0 kg (05/28/21 1:03 PM) 105.7 kg (05/08/21 9:57 AM) Pulse Rate [55-90 bpm] 89 bpm (05/28/21 1:03 PM) 90 bpm (05/08/21 9:57 AM) Body Mass Index [18.5-24.99] 30.56 *>HHI* (05/28/21 1:03 PM) 32.62 *>HHI* (05/08/21 9:57 AM) Blood Pressure [90-138/55-84 mm Hg] 147/ 65mm Hg *H* (05/28/21 1:03 PM) 156/65mm Hg *H* (05/08/21 9:57 AM) Temperature [96.8-100.4 DegF] 97.8 DegF (05/28/21 1:03 PM) 97.0 DegF (05/08/21 9:57 AM) Blood pressure sites Arm, left (05/28/21 1:03 PM) Arm, left (05/08/21 9:57 AM) Temperature Route Temporal (05/28/21 1:03 PM) Temporal (05/08/21 9:57 AM) Dry Weight 99.0 kg (05/28/21 1:03 PM) 105.7 kg (05/08/21 9:57 AM) Weight Obtained Via Standing scale (05/28/21 1:03 PM) Standing scale (05/08/21 9:57 AM) Dry Weight Obtained Via Standing scale (05/28/21 1:03 PM) Standing scale (05/08/21 9:57 AM) Social History Social History Type Response Smoking Status Never smoker entered on: 08/21/18 Sex
--- OUTSIDE RECORDS SUMMARY | 2023-02-27 11:04 | XMS_ITS | Continuity of Care Document ---
Author Name Unknown Organization [facility] Jason lt Address [address] [place] [address]- Care Team Providers Care Sponsorship Coordinator Name Role Phone Chikis BARNETT, Tyrese Heard Primary Care Physician Encounter [facility] Date(s): 05/28/21 - 06/27/21 [facility] Adult [address] [place] [address]- Attending Physician: Admtr, [id number] Admitting Physician: Admtr, [id number] Referring Physician: Admtr, [...] Vaccine (oldterm) 01/25/05 Given 1Result Comment: [12/26/2014] darcyAcompli sold home 2Admin Note: WORK 10-13 3Admin [...] 0, 0, 11/21/05 16:45:48, Print TOÑITO Number, [id number], Constant Indicator Start Date: 11/21/05 Status: Ordered finasteride 5 mg oral tablet 1 tablet, By Mouth, Daily, # 90 tablet, 3 Refills, Maintenance, 04/17/21 12:38:00 EDT, [id number], 180, cm, 04/02/21 13:41:00 EDT, Height Start Date: 04/17/21 Status: Ordered furosemide 20 mg oral tablet 20 mg, 1, tablet, By Mouth, 2 times a day, # 60 tablet, Refills 5, Tot. Refills 5, Maintenance, 04/17/21 12:28:00 EDT, Route to Pharmacy Electronically, [facility]/pharmacy #[id number], Partial fill upon patient request if the prescription is for a schedule II opi... Start Date: 04/17/21 Status: Ordered gabapentin 600 mg oral tablet 1 tablet = 600 mg, By Mouth, 3 times a day, # 270 tablet, 3 Refills, Soft Stop, 11/27/20 10:39:00 EST, [facility]/pharmacy #[id number], 180, cm, 11/27/20 9:53:00 EST, Height Start Date: 11/27/20 Status: Ordered GlyBURIDE (Eqv-DiaBeta) 5 mg oral tablet 2 tablet, By Mouth, 2 times a day, # 360 tablet, 1 Refills, Maintenance, 06/06/21 14:42:00 EDT, [facility]/pharmacy #[id number], 180, cm, 05/28/21 13:03:00 EDT, Height, 99, kg, 05/28/21 13:03:00 EDT, Dry Weight Start Date: 06/06/21 Status: Ordered Lantus Solostar Pen 100 units/mL subcutaneous solution 10 - 40 units, Subcutaneous Infusion, Daily, # 36 mL, 3 Refills, Maintenance, 11/27/20 10:40:00 EST, [facility]/pharmacy #[id number], Partial fill upon patient request [...] Weight Start Date: 06/07/21 Status: Ordered Pen [place], 31 G x 5 mm BD Ultra [...] Maintenance, 06/01/219:31:00 EDT, Route to Pharmacy Electronically, [facility]/pharmacy #[id number], 180, cm, 03/22/21 11:23:00 EDT, [...] 12/23/12 Active OCD (obsessive compulsive disorder)(Confirmed) Active 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
--- OUTSIDE RECORDS SUMMARY | 2023-02-27 11:04 | XMS_ITS | Continuity of Care Document ---
Author Name Unknown Organization [facility] Jason lt Address [address] [place] [address]- Care Team Providers Care Tobacco Blender Name Role Phone Tyrese Diop MD Primary Care Physician [facility]counter [facility] Date(s): 03/29/21 - 04/05/21 [facility] Adult [address] [place] [address]- Attending Physician: Tyrese Diop MD Allergies, Adverse [...] Vaccine (oldterm) 01/25/05 Given 1Result Comment: [12/26/2014] [employer] sold home 2Admin Note: WORK 10-13 3Admin [...] 1, tablet, By Mouth, Daily, 0, 0, 01/26/06 16:45:48, Print TOÑITO Number, [id number], Constant Indicator Start Date: 11/21/05 Status: Ordered finasteride 5 mg oral tablet 1 tablet = 5 mg, By Mouth, Daily, # 90 tablet, 1 Refills, Soft Stop, 07/21/20 11:04:00 EDT, [facility]/pharmacy #[id number], 180, cm, 10/11/19 11:32:00 EST, Height Start Date: 07/21/20 Status: Ordered furosemide 20 mg oral tablet 20 mg, 1, tablet, By Mouth, 2 times a day, # 60 tablet, Refills 0, Tot. Refills 0, Maintenance, 03/29/21 15:14:00 EDT, Route to Pharmacy Electronically, [facility]/pharmacy #[id number], Partial fill upon patient request if the prescription is for a schedule II opi... Start Date: 03/29/21 Status: Ordered gabapentin 600 mg oral tablet 1 tablet = 600 mg, By Mouth, 3 times a day, # 270 tablet, 3 Refills, Soft Stop, 11/27/20 10:39:00 EST, [facility]/pharmacy #[id number], 180, cm, 11/27/20 9:53:00 EST, Height Start Date: 11/27/20 Status: Ordered glyBURIDE 5 mg oral tablet 10 mg, 2, tablet, By Mouth, 2 times a day, for 90 days, # 360 tablet, Refills 3, Tot. Refills 3, Hard Stop 05/20/21 16:56:00 EDT, 05/25/20 16:56:00 EDT, Route to Pharmacy Electronically, [facility]/pharmacy#[id number], 180, cm, 10/11/19 11:32:00 EST, Height Start Date: 05/25/20 Stop Date: 05/20/21 Status: Ordered glyBURIDE 5 mg oral tablet 10 mg, 2, tablet, By Mouth, 2 times a day, # 360 tablet, Refills 0, Tot. Refills 0, Maintenance, 05/20/21 16:56:00 EDT, Route to Pharmacy Electronically, [facility]/pharmacy #[id number], 180, cm, 03/22/21 11:23:00 EDT, Height Start Date: 05/20/21 Stop Date: 08/18/21 Status: Ordered Lantus Solostar Pen 100 units/mL subcutaneous solution 10 - 40 units, Subcutaneous Infusion, Daily, # 36 mL, 3 Refills, Maintenance, 11/27/20 10:40:00 EST, [facility]/pharmacy #[id number], Partial fill upon patient request if the prescription is for a schedule II opioid drug., 180, cm, 11/27/20 9:53:00 EST, Height Start Date: 11/27/20 Status: Ordered lisinopril 40 mg oral tablet 1 tablet = 40 mg, By Mouth, Daily, # 90 tablet, 1 Refills, Soft Stop, 03/27/21 9:31:00 EDT, [facility]/pharmacy #[id number], 180, cm, 03/22/21 11:23:00 EDT, Height Start Date: 03/27/21 Status: Ordered LORazepam 1 mg oral tablet 1 tablet = 1 mg, By Mouth, 3 times a day, PRN anxiety and sleep, # 90 tablet, 2 Refills, Maintenance, 03/28/21 10:45:00 EDT, Tablet, [facility]/pharmacy #[id number], 180, cm, 03/22/21 11:23:00 EDT, Height Start Date: 03/28/21 Status: Ordered Pen [place], 31 G x 5 mm BD Ultra [...] Maintenance, :31:00 EDT, Route to Pharmacy Electronically, [facility]/pharmacy #[id number], 180, cm, 03/22/21 11:23:00 EDT, [...] 12/23/12 Active OCD (obsessive compulsive disorder)(Confirmed) 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 benzo diazepine use(Confirmed) Active 1feet Vital Signs Most recent to oldest [Reference Range]: 1 2 Height 180.00 cm (03/29/21 2:46 PM) 180.00 cm (03/29/21 2:38 PM) Weight 117.6 kg (03/29/21 2:38 PM) Oxygen Saturation [94-100 %] 98 % (03/29/21 2:38 PM) Pulse Rate [55-90 bpm] 92 bpm *H* (03/29/21 2:38 PM) Body Mass Index [18.5-24.99] 36.3 *>HHI* (03/29/21 2:38 PM) Blood Pressure [90-138/55-84 mm Hg] 136/ 54mm Hg (03/29/21 2:46 PM) 146/56mm Hg *H* (03/29/21 2:38 PM) Temperature [96.8-100.4 DegF] 98.1 DegF (03/29/21 2:38 PM) Mode of Delivery (Oxygen) Room air (03/29/21 2:38 PM) Blood pressure sites Arm, left (03/29/21 2:46 PM) Arm, left (03/29/21 2:38 PM) Temperature Route Oral (03/29/21 2:38 PM) Weight Obtained Via Standing scale (03/29/21 2:38 PM) Social History Social History Type Response Smoking Status Never smoker entered on: 08/21/18 Sex
--- OUTSIDE RECORDS SUMMARY | 2023-02-27 11:05 | XMS_ITS | Continuity of Care Document ---
Author Name Unknown Organization [facility] Jason lt Address [address] [place] [address]- Care Team Providers Care Security Technician Name Role Phone Chikis BARNETT, Tyrese Heard Primary Care Physician [facility]counter [facility] Date(s): 04/27/20 - 05/27/20 [facility] Adult [address] [place] [address]- [facility] Allergies, Adverse Reactions, Alerts Substance Reaction Severity Status metformin Active Immunizations Given and Recorded Vaccine Date Status Refusal Reason influenza virus vaccine, inactivated 1 06/29/14 Gi daniele influenza virus vaccine, inactivated 2 10/14/13 Gi daniele Diphtheria/Tet/Pertussis, Acel (oldterm) 06/12/12 Given FluLaval (oldterm) 3 11/19/10 Given Tetanus Toxoid Vaccine (oldterm) 01/25/05 Given 1Result Comment: [12/26/2014] [facility] 2Admin Note: WORK 10-13 3Admin Note: declines Medications aspirin buffered 325 mg oral tablet 1 tablet = 325 mg, By Mouth, Daily, # 30 tablet, 0 Refills, Maintenance, 01/17/17 13:47:10, Tablet Start Date: 01/17/17 Status: Ordered BD UF MINI PEN NEEDLE [id number] See Instructions, # 100 Unknown, Refills 5 [...] 0, 0, 11/21/05 16:45:48, Print TOÑITO Number, [id number], Constant Indicator Start Date: 11/21/05 Status: Ordered finasteride 5 mg oral tablet 1 tablet = 5 mg, By Mouth, Daily, # 90 tablet, 1 Refills, Soft Stop, 02/04/20 9:46:00 EDT, [facility]/pharmacy #[id number], 180, cm, 10/11/19 11:32:00 EST, [...] Height Start Date: 05/20/20 Status: Ordered Pen [place], 31 G x 5 mm BD Ultra Fine III See Instructions, # 1 box, Refills 5, Tot. Refills 5, Maintenance, use as directed for injection oflantus solostar, 03/31/18 16:32:05 EDT, Compound Start Date: 03/31/18 Stop Date: 09/27/18 Status: Ordered Pen [place], 31 G x 5 mm BD Ultra [...] Maintenance, 04/27/2013:47:00 EDT, Route to Pharmacy Electronically, [facility]/pharmacy #[id number], 180, cm, 10/11/19 11:32:00 EST,Height [...] 12/23/12 Active OCD (obsessive compulsive disorder)(Confirmed) Active prison prescription benzo 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
--- OUTSIDE RECORDS SUMMARY | 2023-02-27 11:05 | XMS_ITS | Continuity of Care Document ---
Author Name Unknown Organization [facility] Address [address] [place] [address]- Care Team Providers Care Safety And Health Manager Name Role Phone Chikis BARNETT, Tyrese Heard Primary Care Physician Encounter [facility] Date(s): 04/16/21 - 05/16/21 [facility] [address] [place] [id number] Attending Physician: Diya Duarte Admitting Physician: AdmtrDiya Referring Physician: AdmtrDiya Allergies, Adverse Reactions, Alerts Substance Reaction Severity [...] 0, 0, 11/21/05 16:45:48, Print TOÑITO Number, [id number], Constant Indicator Start Date: 11/21/05 Status: Ordered finasteride 5 mg oral tablet 1 tablet, By Mouth, Daily, # 90 tablet, 3 Refills, Maintenance, 04/17/21 12:38:00 EDT, [id number], 180, cm, 04/02/21 13:41:00 EDT, Height Start Date: 04/17/21 Status: Ordered furosemide 20 mg oral tablet 20 mg, 1, tablet, By Mouth, 2 times a day, # 60 tablet, Refills 5, Tot. Refills 5, Maintenance, 04/17/21 12:28:00 EDT, Route to Pharmacy Electronically, [facility]/pharmacy #[id number], Partial fill upon patient request if the prescription is for a schedule II opi... Start Date: 04/17/21 Status: Ordered gabapentin 600 mg oral tablet 1 tablet = 600 mg, By Mouth, 3 times a day, # 270 tablet, 3 Refills, Soft Stop, 11/27/20 10:39:00 EST, [facility]/pharmacy #[id number], 180, cm, 11/27/20 9:53:00 EST, Height Start Date: 11/27/20 Status: Ordered glyBURIDE 5 mg oral tablet 10 mg, 2, tablet, By Mouth, 2 times a day, for 90 days, # 360 tablet, Refills 3, Tot. Refills 3, Hard Stop 05/20/21 16:56:00 EDT, 05/25/20 16:56:00 EDT, Route to Pharmacy Electronically, [facility]/pharmacy#[id number], 180, cm, 10/11/19 11:32:00 EST, Height Start Date: 05/25/20 Stop Date: 05/20/21 Status: Ordered glyBURIDE 5 mg oral tablet 10 mg, 2, tablet, By Mouth, 2 times a day, # 360 tablet, Refills 0, Tot. Refills 0, Maintenance, 05/20/21 16:56:00 EDT, Route to Pharmacy Electronically, [facility]/pharmacy #[id number], 180, cm, 03/22/21 11:23:00 EDT, Height Start Date: 05/20/21 Stop Date: 08/18/21 Status: Ordered Lantus Solostar Pen 100 units/mL subcutaneous solution 10 - 40 units, Subcutaneous Infusion, Daily, # 36 mL, 3 Refills, Maintenance, 11/27/20 10:40:00 EST, [facility]/pharmacy #[id number], Partial fill upon patient [...] 2 Refills, Maintenance, 03/28/21 10:45:00 EDT, Tablet, [facility]/pharmacy #[id number], 180, cm, 03/22/21 11:23:00 EDT, Height Start Date: 03/28/21 Status: Ordered Pen [place], 31 G x 5 mm BD Ultra [...] Maintenance, 219:31:00 EDT, Route to Pharmacy Electronically, [facility]/pharmacy #[id number], 180, cm, 03/22/21 11:23:00 [...] 12/23/12 Active OCD (obsessive compulsive disorder)(Confirmed) Active skilled nursing prescription benzo 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
--- OUTSIDE RECORDS SUMMARY | 2023-02-27 11:05 | XMS_ITS | Continuity of Care Document ---
Author Name Unknown Organization [facility] [place] Jason lt Address [address] [place] [address]- Care Team Providers Care Film Waxer Name Role Phone Chikis BARNETT, Tyrese Heard Primary Care Physician [phone] Encounter [facility] Date(s): 11/21/20 - 12/21/20 [facility] [place] Adult [address] [place] [address]- Allergies, Adverse Reactions, Alerts Substance Reaction Severity Status metformin Active Immunizations Given and Recorded Vaccine Date Status Refusal Reason influenza virus vaccine, inactivated 1 06/29/14 Gi daniele influenza virus vaccine, inactivated 2 10/14/13 Gi daniele Diphtheria/Tet/Pertussis, Acel (oldterm) 06/12/12 Given FluLaval (oldterm) 3 11/19/10 Given Tetanus Toxoid Vaccine (oldterm) 01/25/05 Given 1Result Comment: [12/26/2014] [employer] sold home 2Admin Note: WORK 10-13 3Admin [...] 0, 0, 11/21/05 16:45:48, Print TOÑITO Number, [id number], Constant Indicator Start Date: 11/21/05 Status: Ordered finasteride 5 mg oral tablet 1 tablet = 5 mg, By Mouth, Daily, # 90 tablet, 1 Refills, Soft Stop, 07/21/20 11:04:00 EDT, [facility]/pharmacy #[id number], 180, cm, 10/11/19 11:32:00 EST, [...] 05/25/20 16:56:00 EDT, Route to Pharmacy Electronically, [facility]/pharmacy #[id number], 180, cm, 10/11/19 11:32:00 EST, Height Start Date: 05/25/20 Stop Date: 05/20/21 Status: Ordered Lantus Solostar Pen 100 units/mL subcutaneous solution 10 - 40 units, Subcutaneous Infusion, Daily, # 36 mL, 3 Refills, Maintenance, 11/27/20 10:40:00 EST, [facility]/pharmacy #[id number], Partial fill upon patient request [...] sleep, # 90 tablet, 2 Refills, Maintenance, 11/27/20 10:38:00 EST, Tablet, [id number], 180, cm, 11/27/20 9:53:00 EST, Height Start Date: 11/27/20 Status: Ordered Pen [place], 31 G x 5 mm BD Ultra [...] Maintenance, 09/23/2020:31:00 EST, Route to Pharmacy Electronically, [facility]/pharmacy #[id number], 180, cm, 10/11/19 11:32:00 EST,Height [...] 12/23/12 Active OCD (obsessive compulsive disorder)(Confirmed) 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
--- OUTSIDE RECORDS SUMMARY | 2023-02-27 11:05 | XMS_ITS | Continuity of Care Document ---
Author Name Unknown Organization [facility] Jason lt Address [address] [place] [address]- Care Team Providers Care Telephone Solicitor Supervisor Name Role Phone Tyrese Diop MD Primary Care Physician [phone] Encounter [facility] Date(s): 11/27/20 - 12/04/20 [facility] Adult [address] [place] [address]- Encounter Diagnosis OCD (obsessive compulsive disorder)(Discharge Diagnosis) - 11/27/20 Chronic post-traumatic stress disorder(Discharge Diagnosis) - 11/27/20 Depression, major(Discharge Diagnosis) - 11/27/20 Diabetic neuropathy(Discharge Diagnosis) - 11/27/20 Insulin long-term use(Discharge Diagnosis) - 11/27/20 retirement prescription benzodiazepine use(Discharge Diagnosis) - 11/27/20 Attending Physician: Tyrese Diop MD Allergies, Adverse Reactions, Alerts Substance Reaction Severity Status metformin Active Immunizations Given and Recorded Vaccine Date Status Refusal Reason influenza virus vaccine, inactivated 1 06/29/14 Gi daniele influenza virus vaccine, inactivated 2 10/14/13 Gi daniele Diphtheria/Tet/Pertussis, Acel (oldterm) 06/12/12 Given FluLaval (oldterm) 3 11/19/10 Given Tetanus Toxoid Vaccine (oldterm) 01/25/05 Given 1Result Comment: [12/26/2014] [employer] sold home 2Admin Note: WORK 10- 3Admin Note: declines Medications aspirin buffered 325 mg oral tablet 1 tablet = 325 mg, By Mouth, Daily, # 30 tablet, 0 Refills, Maintenance, 01/17/17 13:47:10, Tablet Start Date: 01/17/17 Status: Ordered [place] 10 mg-20 mg oral tablet 1 tablet, By Mouth, Daily, # 90 tablet, 3 Refills, Maintenance, hypertension and high cholesterol, 11/27/20 10:39:00 EST, [facility]/pharmacy #[id number], 1 tablet By Mouth Daily, 180, cm, 11/27/20 9:53:00 EST, Height Start Date: 11/27/20 Status: Ordered Centrum Silver Therapeutic Multiple Vitamins with Minerals oral tablet 1, tablet, By Mouth, Daily, 0, 0, 11/21/05 16:45:48, Print TOÑITO Number, [id number], Constant Indicator Start Date: 11/21/05 Status: Ordered finasteride 5 mg oral tablet 1 tablet = 5 mg, By Mouth, Daily, # 90 tablet, 1 Refills, Soft Stop, 07/21/20 11:04:00 EDT, [facility]/pharmacy #[id number], 180, cm, 10/11/19 11:32:00 EST, [...] [id number], 180, cm, 10/11/19 11:32:00 EST, [...] 1 Refills, Soft Stop, 09/23/20 20:31:00 EST, [facility]/pharmacy #[id number], 180, cm, 10/11/19 11:32:00 EST, Height Start Date: 09/23/20 Status: Ordered LORazepam 1 mg oral tablet 1 tablet = 1 mg, By Mouth, 3 times a day, PRN anxiety and sleep, # 90 tablet, 2 Refills, Maintenance, 11/27/20 10:38:00 EST, Tablet, [facility]/pharmacy #[id number], 180, cm, 11/27/20 9:53:00 EST, Height Start Date: 11/27/20 Status: Ordered Pen [place], 31 G x 5 mm BD Ultra [...] Maintenance, 09/23/2020:31:00 EST, Route to Pharmacy Electronically, [facility]/pharmacy #[id number], 180, cm, 10/11/19 11:32:00 EST,Height [...] Clinical Service Informant Depression, major Discharge Diagnosis 2/1/21 Diabetic neuropathy Discharge Diagnosis 11/27/20 Insulin long-term use Discharge Diagnosis 11/27/20 retirement prescription benzodiazepine use Discharge Diagnosis 11/27/20 OCD (obsessive compulsive disorder) Discharge Diagnosis 11/27/20 Chronic post-traumatic stress disorder Discharge Diagnosis 11/27/20 Vital Signs Most recent to oldest [Reference Range]: 1 Height 180.00 cm (11/27/20 9:53 AM) Social History Social History Type Response Smoking Status Never smoker entered on: 08/21/18 Sex
--- OUTSIDE RECORDS SUMMARY | 2023-02-27 11:05 | XMS_ITS | Continuity of Care Document ---
Author Name Unknown Organization [facility] Jason lt Address [address] [place] [address]- Care Team Providers Care Analytical Data Scientist Name Role Phone Tyrese Diop MD Primary Care Physician [place] [facility] Date(s): 02/26/21 - 03/05/21 [facility] Adult [address] [place] [address]- Attending Physician: Tyrese Diop MD Allergies, Adverse [...] 0, 0, 01/26/06 16:45:48, Print TOÑITO Number, [id number], Constant Indicator Start Date: 11/21/05 Status: Ordered finasteride 5 mg oral tablet 1 tablet = 5 mg, By Mouth, Daily, # 90 tablet, 1 Refills, Soft Stop, 07/21/20 11:04:00 EDT, [facility]/pharmacy #[id number], 180, cm, 10/11/19 11:32:00 EST, Height Start Date: 07/21/20 Status: Ordered gabapentin 600 mg oral tablet 1 tablet = 600 mg, By Mouth, 3 times a day, # 270 tablet, 3 Refills, Soft Stop, 11/27/20 10:39:00 EST, [facility]/pharmacy #[id number], 180, cm, 11/27/20 9:53:00 EST, Height Start Date: 11/27/20 Status: Ordered glyBURIDE 5 mg oral tablet 10 mg, 2, tablet, By Mouth, 2 times a day, # 360 tablet, Refills 3, Tot. Refills 3, Maintenance, 05/25/20 16:56:00 EDT, Route to Pharmacy Electronically, [facility]/pharmacy #[id number], 180, cm, 10/11/19 11:32:00 EST, Height Start Date: 05/25/20 Stop Date: 05/20/21 Status: Ordered Lantus Solostar Pen 100 units/mL subcutaneous solution 10 - 40 units, Subcutaneous Infusion, Daily, # 36 mL, 3 Refills, Maintenance, 11/27/20 10:40:00 EST, [facility]/pharmacy #[id number], Partial fill upon patient request if the prescription is for a schedule II opioid drug., 180, cm, 11/27/20 9:53:00 EST, Height Start Date: 11/27/20 Status: Ordered lisinopril 40 mg oral tablet 1 tablet = 40 mg, By Mouth, Daily, # 90 tablet, 1 Refills, Soft Stop, 09/23/20 20:31:00 EST, [facility]/pharmacy #[id number], 180, cm, 10/11/19 11:32:00 EST, Height Start Date: 09/23/20 Status: Ordered LORazepam 1 mg oral tablet 1 tablet = 1 mg, By Mouth, 3 times a day, PRN anxiety and sleep, # 90 tablet, 2 Refills, Maintenance, 11/27/20 10:38:00 EST, Tablet, [facility]/pharmacy #[id number], 180, cm, 11/27/20 9:53:00 EST, Height Start Date: 11/27/20 Status: Ordered Pen [place], 31 G x 5 mm BD Ultra [...] Maintenance, 09/23/2020:31:00 EST, Route to Pharmacy Electronically, [facility]/pharmacy #[id number], 180, cm, 10/11/19 11:32:00 EST,Height Start Date: 09/23/20 Status: Ordered Vitamin D3 2000 intl units [...] 12/23/12 Active OCD (obsessive compulsive disorder)(Confirmed) Active shelter prescription benzo diazepine use(Confirmed) Active 1feet Vital Signs Most recent to oldest [Reference Range]: 1 Height 180.00 cm (02/26/21 10:21 AM) Social History Social History Type Response Smoking Status Never smoker entered on: 08/21/18 Sex
--- OUTSIDE RECORDS SUMMARY | 2023-02-27 11:05 | XMS_ITS | Continuity of Care Document ---
Author Name Unknown Organization [facility] Jason lt Address [address] [place] [address]- Care Team Providers Care General Inspector Name Role Phone Tyrese Diop MD Primary Care Physician Encounter [facility] Date(s): 07/19/20 - 11/16/20 [facility] Adult [address] [place] [address]- Attending Physician: Tyrese Diop MD Allergies, Adverse [...] Status: Ordered BD UF MINI PEN NEEDLE [id number] See Instructions, # 100 Unknown, Refills 5 [...] 0, 0, 11/21/05 16:45:48, Print TOÑITO Number, [id number], Constant Indicator Start Date: 11/21/05 Status: Ordered finasteride 5 mg oral tablet 1 tablet = 5 mg, By Mouth, Daily, # 90 tablet, 1 Refills, Soft Stop, 07/21/20 11:04:00 EDT, [facility]/pharmacy #[id number], 180, cm, 10/11/19 11:32:00 EST, Height Start Date: 07/21/20 Status: Ordered gabapentin 600 mg oral tablet 1 tablet = 600 mg, By Mouth, 3 times a day, # 270 tablet, 1 Refills, Soft Stop, 07/24/20 17:25:00 EDT, [facility]/pharmacy #[id number], 180, cm, 10/11/19 11:32:00 EST, Height Start Date: 07/24/20 Status: Ordered glyBURIDE 5 mg oral tablet 10 mg, 2, tablet, By Mouth, 2 times a day, # 360 tablet, Refills 3, Tot. Refills 3, Maintenance, 05/25/20 16:56:00 EDT, Route to Pharmacy Electronically, [facility]/pharmacy #[id number], 180, cm, 10/11/19 11:32:00 EST, [...] 2 Refills, Maintenance, 08/21/20 17:16:00 EDT, Tablet, [facility]/pharmacy #[id number], 180, cm, 10/11/19 11:32:00 EST, Height Start Date: 08/21/20 Status: Ordered Pen [place], 31 G x 5 mm BD Ultra Fine III See Instructions, # 200 each, Refills 5, Tot. 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
--- OUTSIDE RECORDS SUMMARY | 2023-02-27 11:05 | XMS_ITS | Continuity of Care Document ---
Author Name Unknown Organization [facility] Jason lt Address [address] [place] [address]- Care Team Providers Care Resourcing Advisor Name Role Phone Chikis BARNETT, Tyrese Heard Primary Care Physician [facility] Date(s): 04/23/21 - 05/23/21 [facility] Adult [address] [place] [address]- Allergies, Adverse Reactions, Alerts Substance Reaction Severity Status metformin Active Immunizations Given and Recorded Vaccine Date Status Refusal Reason SARS-CoV-2 (COVID-19) Ad26 vaccine 02/05/21 Record ed influenza virus vaccine, inactivated 1 06/29/14 Gi daniele influenza virus vaccine, inactivated 2 10/14/13 Gi daniele Diphtheria/Tet/Pertussis, Acel (oldterm) 06/12/12 Given FluLaval (oldterm) 3 11/19/10 Given Tetanus Toxoid Vaccine (oldterm) 01/25/05 Given 1Result Comment: [12/26/2014] [employer] sold home 2Admin Note: WORK 10-13 3Admin [...] 0, 0, 11/21/05 16:45:48, Print TOÑITO Number, [id number], Constant Indicator Start Date: 11/21/05 Status: Ordered finasteride 5 mg oral tablet 1 tablet, By Mouth, Daily, # 90 tablet, 3 Refills, Maintenance, 04/17/21 12:38:00 EDT, [facility] STORE [id number], 180, cm, 04/02/21 13:41:00 EDT, Height Start Date: 04/17/21 Status: Ordered furosemide 20 mg oral tablet 20 mg, 1, tablet, By Mouth, 2 times a day, # 60 tablet, Refills 5, Tot. Refills 5, Maintenance, 04/17/21 12:28:00 EDT, Route to Pharmacy Electronically, [facility]/pharmacy #[id number], Partial fill upon patient request if the prescription is for a schedule II opi... Start Date: 04/17/21 Status: Ordered gabapentin 600 mg oral tablet 1 tablet = 600 mg, By Mouth, 3 times a day, # 270 tablet, 3 Refills, Soft Stop, 11/27/20 10:39:00 EST, [facility]/pharmacy #[id number], 180, cm, 11/27/20 9:53:00 EST, Height Start Date: 11/27/20 Status: Ordered glyBURIDE 5 mg oral tablet 10 mg, 2, tablet, By Mouth, 2 times a day, # 360 tablet, Refills 0, Tot. Refills 0, Maintenance, 05/20/21 16:56:00 EDT, Route to Pharmacy Electronically, [facility]/pharmacy #[id number], 180, cm, 03/22/21 11:23:00 EDT, Height Start Date: 05/20/21 Stop Date: 08/18/21 Status: Ordered Lantus Solostar Pen 100 units/mL subcutaneous solution 10 - 40 units, Subcutaneous Infusion, Daily, # 36 mL, 3 Refills, Maintenance, 11/27/20 10:40:00 EST, [facility]/pharmacy #[id number], Partial fill upon patient request [...] 2 Refills, Maintenance, 03/28/21 10:45:00 EDT, Tablet, [facility]/pharmacy #[id number], 180, cm, 03/22/21 11:23:00 EDT, Height Start Date: 03/28/21 Status: Ordered Pen [place], 31 G x 5 mm BD Ultra [...] mL, 0 Refills, Maintenance, 04/06/21 15:49:00 EDT, [facility]/pharmacy #[id number], Partial fill upon patient request if the prescription is for a schedule II... Start Date: 04/06/21 Status: Ordered tamsulosin 0.4 mg oral capsule 0.4 mg, 1, capsule, By Mouth, Daily, # 90 capsule, Refills 1, Tot. 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
--- OUTSIDE RECORDS SUMMARY | 2023-02-27 11:05 | XMS_ITS | Continuity of Care Document ---
Author Name Unknown Organization [facility] Jason lt Address [address] [place] [address]- Care Team Providers Care Container Packer Operator Name Role Phone Chiksi BARNETT, Tyrese Heard Primary Care Physician [facility] Date[facility]s): 03/27/21 - 04/26/21 [facility] Adult [address] [place] [address]- Allergies, Adverse Reactions, Alerts Substance Reaction Severity Status metformin Active Immunizations Given and Recorded Vaccine Date Status Refusal Reason SARS-CoV-2 (COVID-19) Ad26 vaccine 02/05/21 Record ed influenza virus vaccine, inactivated 1 06/29/14 Gi daniele influenza virus vaccine, inactivated 2 10/14/13 Gi daniele Diphtheria/Tet/Pertussis, Acel (oldterm) 06/12/12 Given FluLaval (oldterm) 3 11/19/10 Given Tetanus Toxoid Vaccine (oldterm) 01/25/05 Given 1Result Comment: [12/26/2014] [employer] sold home 2Admin Note: WORK 10-13 3Admin [...] 0, 0, 11/21/05 16:45:48, Print TOÑITO Number, [id number], Constant Indicator Start Date: 11/21/05 Status: Ordered finasteride 5 mg oral tablet 1 tablet, By Mouth, Daily, # 90 tablet, 3 Refills, Maintenance, 04/17/21 12:38:00 EDT, [facility] STORE [id number], 180, cm, 04/02/21 13:41:00 EDT, Height Start Date: 04/17/21 Status: Ordered furosemide 20 mg oral tablet 20 mg, 1, tablet, By Mouth, 2 times a day, # 60 tablet, Refills 5, Tot. Refills 5, Maintenance, 04/17/21 12:28:00 EDT, Route to Pharmacy Electronically, [facility]/pharmacy #[id number], Partial fill upon patient request if the prescription is for a schedule II opi... Start Date: 04/17/21 Status: Ordered gabapentin 600 mg oral tablet 1 tablet = 600 mg, By Mouth, 3 times a day, # 270 tablet, 3 Refills, Soft Stop, 11/27/20 10:39:00 EST, [facility]/pharmacy #[id number], 180, cm, 11/27/20 9:53:00 EST, Height Start Date: 11/27/20 Status: Ordered glyBURIDE 5 mg oral tablet 10 mg, 2, tablet, By Mouth, 2 times a day, for 90 days, # 360 tablet, Refills 3, Tot. Refills 3, Hard Stop 05/20/21 16:56:00 EDT, 05/25/20 16:56:00 EDT, Route to Pharmacy Electronically, [facility]/pharmacy#[id number], 180, cm, 10/11/19 11:32:00 EST, Height Start Date: 05/25/20 Stop Date: 05/20/21 Status: Ordered glyBURIDE 5 mg oral tablet 10 mg, 2, tablet, By Mouth, 2 times a day, # 360 tablet, Refills 0, Tot. Refills 0, Maintenance, 05/20/21 16:56:00 EDT, Route to Pharmacy Electronically, [facility]/pharmacy #[id number], 180, cm, 03/22/21 11:23:00 EDT, Height Start Date: 05/20/21 Stop Date: 08/18/21 Status: Ordered Lantus Solostar Pen 100 units/mL subcutaneous solution 10 - 40 units, Subcutaneous Infusion, Daily, # 36 mL, 3 Refills, Maintenance, 11/27/20 10:40:00 EST, [facility]/pharmacy #[id number], Partial fill upon patient request if [...] 2 Refills, Maintenance, 03/28/21 10:45:00 EDT, Tablet, [facility]/pharmacy #[id number], 180, cm, 03/22/21 11:23:00 EDT, Height Start Date: 03/28/21 Status: Ordered Pen [place], 31 G x 5 mm BD Ultra [...] mL, 0 Refills, Maintenance, 04/06/21 15:49:00 EDT, [facility]/pharmacy #[id number], Partial fill upon patient request if the prescription is for a schedule II... Start Date: 04/06/21 Status: Ordered tamsulosin 0.4 mg oral capsule 0.4 mg, 1, capsule, By Mouth, Daily, # 90 capsule, Refills 1, Tot. Refills 1, Maintenance, :31:00 EDT, Route to Pharmacy Electronically, [facility]/pharmacy #[id number], 180, cm, 03/22/21 11:23:00 EDT, Height [...] 12/23/12 Active OCD (obsessive compulsive disorder)(Confirmed) Active halfway prescription benzo 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
--- OUTSIDE RECORDS SUMMARY | 2023-02-27 11:05 | XMS_ITS | Continuity of Care Document ---
Author Name Unknown Organization [facility] Stefano Jason lt Address [address] [place] [address]- Care Team Providers Care Chip Person Name Role Phone Tyrese Diop MD Primary Care Physician Encounter [facility] Date(s): 01/12/20 - 01/22/20 [facility] Adult [address] [place] [address]- [facility] Attending Physician: Admtr, Diya Admitting Physician: AdmtrDiya Referring Physician: Admtr, Ar8 Allergies, Adverse Reactions, Alerts Substance Reaction Severity Status metformin Active Immunizations Given and Recorded Vaccine Date Status Refusal Reason influenza virus vaccine, inactivated 1 06/29/14 Gi daniele influenza virus vaccine, inactivated 2 10/14/13 Gi daniele Diphtheria/Tet/Pertussis, Acel (oldterm) 06/12/12 Given FluLaval (oldterm) 3 11/19/10 Given Tetanus Toxoid Vaccine (oldterm) 01/25/05 Given 1Result Comment: [12/26/2014] [employer] sold home 2Admin Note: WORK 10-13 3Admin Note: declines Medications aspirin buffered 325 mg oral tablet 1 tablet = 325 mg, By Mouth, Daily, # 30 tablet, 0 Refills, Maintenance, 01/17/17 13:47:10, Tablet Start Date: 01/17/17 Status: Ordered BD UF MINI PEN NEEDLE [id number] See Instructions, # 100 Unknown, Refills 5 [...] 0, 0, 11/21/05 16:45:48, Print TOÑITO Number, [id number], Constant Indicator Start Date: 11/21/05 Status: Ordered finasteride 5 mg oral tablet See Instructions, # 90 tablet, Refills 1 Tot. Refills 1, TAKE 1 TABLET BY MOUTH EVERY DAY, [facility]/pharmacy #[id number] Start Date: 08/06/19 Status: Ordered gabapentin [...] 04/01/19 12:02:31 EDT, Route to Pharmacy Electronically, [id number], [facility]acy [id number] Start Date: 04/01/19 Stop Date: [...] sleep, # 90 tablet, 2 Refills, Maintenance, 10/26/19 17:14:00 EST, Tablet, [id number], 180, cm, 10/11/19 11:32:00 EST, Height Start Date: 10/26/19 Status: Ordered Pen [place], 31 G x [...] Maintenance, 199:29:07 EDT, Route to Pharmacy Electronically, [id number], [facility]/pharmacy #[id number] Start Date: 05/14/19 Status: Ordered Problem [...] 12/23/12 Active OCD (obsessive compulsive disorder)(Confirmed) Active [facility] prescription benzo 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
--- OUTSIDE RECORDS SUMMARY | 2023-02-27 11:05 | XMS_ITS | Continuity of Care Document ---
Author Name Unknown Organization [facility] Jason lt Address [address] [place] [address]- Care Team Providers Care Collections Rep Name Role Phone Chikis BARNETT, Tyrese Heard Primary Care Physician [facility] Date[facility]s): 02/23/21 - 03/25/21 [facility] Adult [address] [place] [address]- Allergies, Adverse Reactions, Alerts Substance Reaction Severity Status metformin Active Immunizations Given and Recorded Vaccine Date Status Refusal Reason SARS-CoV-2 (COVID-19) Ad26 vaccine 02/05/21 Record ed influenza virus vaccine, inactivated 1 06/29/14 Gi daniele influenza virus vaccine, inactivated 2 10/14/13 Gi daniele Diphtheria/Tet/Pertussis, Acel (oldterm) 06/12/12 Given FluLaval (oldterm) 3 11/19/10 Given Tetanus Toxoid Vaccine (oldterm) 01/25/05 Given 1Result Comment: [12/26/2014] [employer] sold home 2Admin Note: WORK 10-13 3Admin [...] 0, 0, 11/21/05 16:45:48, Print TOÑITO Number, [id number], Constant Indicator Start Date: 11/21/05 Status: Ordered finasteride 5 mg oral tablet 1 tablet = 5 mg, By Mouth, Daily, # 90 tablet, 1 Refills, Soft Stop, 07/21/20 11:04:00 EDT, [facility]/pharmacy #[id number], 180, cm, 10/11/19 11:32:00 EST, Height [...] 05/25/20 16:56:00 EDT, Route to Pharmacy Electronically, [facility]/pharmacy #[id number], 180, cm, 10/11/19 11:32:00 EST, Height Start Date: 05/25/20 Stop Date: 05/20/21 Status: Ordered Lantus Solostar Pen 100 units/mL subcutaneous solution 10 - 40 units, Subcutaneous Infusion, Daily, # 36 mL, 3 Refills, Maintenance, 11/27/20 10:40:00 EST, [facility]/pharmacy #[id number], Partial fill upon patient request if [...] 2 Refills, Maintenance, 11/27/20 10:38:00 EST, Tablet, [facility]/pharmacy #[id number], 180, cm, 11/27/20 9:53:00 EST, Height Start Date: 11/27/20 Status: Ordered Pen [place], 31 G x 5 mm BD Ultra [...] Maintenance, 09/23/2020:31:00 EST, Route to Pharmacy Electronically, [facility]/pharmacy #[id number], 180, cm, 10/11/19 11:32:00 EST,Height Start [...] 12/23/12 Active 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
--- OUTSIDE RECORDS SUMMARY | 2023-02-27 11:05 | XMS_ITS | Continuity of Care Document ---
Author Name Unknown Organization [facility] Jason lt Address [address] [place] [address]- Care Team Providers Care Adult Day Care Worker Name Role Phone Tyrese Diop MD Primary Care Physician [phone] Encounter [facility] Date(s): 02/27/21 - 06/27/21 [facility] Adult [address] [place] [address]- Attending Physician: Tyrese Diop MD Allergies, Adverse [...] 0, 0, 11/21/05 16:45:48, Print TOÑITO Number, [id number], Constant Indicator Start Date: 11/21/05 Status: Ordered finasteride 5 mg oral tablet 1 tablet, By Mouth, Daily, # 90 tablet, 3 Refills, Maintenance, 04/17/21 12:38:00 EDT, [facility], 180, cm, 04/02/21 13:41:00 EDT, Height Start Date: 04/17/21 Status: Ordered furosemide 20 mg oral tablet 20 mg, 1, tablet, By Mouth, 2 times a day, # 60 tablet, Refills 5, Tot. Refills 5, Maintenance, 04/17/21 12:28:00 EDT, Route to Pharmacy Electronically, [facility]/pharmacy #[id number], Partial fill upon patient request if the prescription is for a schedule II opi... Start Date: 04/17/21 Status: Ordered gabapentin 600 mg oral tablet 1 tablet = 600 mg, By Mouth, 3 times a day, # 270 tablet, 3 Refills, Soft Stop, 11/27/20 10:39:00 EST, [facility]/pharmacy #[id number], 180, cm, 11/27/20 9:53:00 EST, Height Start Date: 11/27/20 Status: Ordered GlyBURIDE (Eqv-DiaBeta) 5 mg oral tablet 2 tablet, By Mouth, 2 times a day, # 360 tablet, 1 Refills, Maintenance, 06/06/21 14:42:00 EDT, [facility]/pharmacy #0693, 180, cm, 05/28/21 13:03:00 EDT, Height, 99, kg, 05/28/21 13:03:00 EDT, Dry Weight Start Date: 06/06/21 Status: Ordered Lantus Solostar Pen 100 units/mL subcutaneous solution 10 - 40 units, Subcutaneous Infusion, Daily, # 36 mL, 3 Refills, Maintenance, 11/27/20 10:40:00 EST, [id number], Partial fill upon patient request [...] 2 Refills, Maintenance, 06/07/21 9:32:00 EDT, Tablet, [facility]/pharmacy #0693, 180, cm, 05/28/21 13:03:00 EDT, Height, 99, kg,05/28/21 13:03:00 EDT, Dry Weight Start Date: 06/07/21 Status: Ordered Pen [place], 31 G x 5 mm BD Ultra [...] 5 Refills, Maintenance, 05/29/21 14:11:00 EDT, Tablet, [facility]/pharmacy #0693, Partial fill upon patient request if [...] Maintenance, :31:00 EDT, Route to Pharmacy Electronically, [facility]/pharmacy #[id number], 180, cm, 03/22/21 11:23:00 EDT, Height [...] 12/23/12 Active OCD (obsessive compulsive disorder)(Confirmed) Active 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
--- OUTSIDE RECORDS SUMMARY | 2023-02-27 11:05 | XMS_ITS | Continuity of Care Document ---
Author Name Unknown Organization [facility] ter Address [address] [place] [address]- Care Team Providers Care Environmental Compliance Inspector Name Role Phone Tyrese Diop MD Primary Care Physician [facility] Date[facility]s): 04/06/21 - 05/24/[address] [address] Attending Physician: Tyrese Diop MD Admitting Physician: Tyrese Diop MD Referring Physician: Tyrese Diop MD Allergies, Adverse Reactions, [...] Vaccine (oldterm) 01/25/05 Given 1Result Comment: [12/26/2014] [employer] sold home 2Admin Note: WORK 10-13 3Admin [...] 0, 0, 11/21/05 16:45:48, Print TOÑITO Number, [id number], Constant Indicator Start Date: 11/21/05 Status: Ordered finasteride 5 mg oral tablet 1 tablet, By Mouth, Daily, # 90 tablet, 3 Refills, Maintenance, 04/17/21 12:38:00 EDT, [facility], 180, cm, 04/02/21 13:41:00 EDT, Height Start Date: 04/17/21 Status: Ordered furosemide 20 mg oral tablet 20 mg, 1, tablet, By Mouth, 2 times a day, # 60 tablet, Refills 5, Tot. Refills 5, Maintenance, 04/17/21 12:28:00 EDT, Route to Pharmacy Electronically, [facility]/pharmacy #[id number], Partial fill upon patient request if the prescription is for a schedule II opi... Start Date: 04/17/21 Status: Ordered gabapentin 600 mg oral tablet 1 tablet = 600 mg, By Mouth, 3 times a day, # 270 tablet, 3 Refills, Soft Stop, 11/27/20 10:39:00 EST, [facility]/pharmacy #[id number], 180, cm, 11/27/20 9:53:00 EST, Height Start Date: 11/27/20 Status: Ordered glyBURIDE 5 mg oral tablet 10 mg, 2, tablet, By Mouth, 2 times a day, # 360 tablet, Refills 0, Tot. Refills 0, Maintenance, 05/20/21 16:56:00 EDT, Route to Pharmacy Electronically, [facility]/pharmacy #[id number], 180, cm, 03/22/21 11:23:00 EDT, Height Start Date: 05/20/21 Stop Date: 08/18/21 Status: Ordered Lantus Solostar Pen 100 units/mL subcutaneous solution 10 - 40 units, Subcutaneous Infusion, Daily, # 36 mL, 3 Refills, Maintenance, 11/27/20 10:40:00 EST, [facility]/pharmacy #[id number], Partial fill upon patient request if the prescription is for a schedule II opioid drug., 180, cm, 11/27/20 9:53:00 EST, Height Start Date: 11/27/20 Status: Ordered lisinopril 40 mg oral tablet 1 tablet = 40 mg, By Mouth, Daily, # 90 tablet, 1 Refills, Soft Stop, 03/27/21 9:31:00 EDT, [facility]/pharmacy #[id number], 180, cm, 03/22/21 11:23:00 EDT, Height Start Date: 03/27/21 Status: Ordered LORazepam 1 mg oral tablet 1 tablet = 1 mg, By Mouth, 3 times a day, PRN anxiety and sleep, # 90 tablet, 2 Refills, Maintenance, 03/28/21 10:45:00 EDT, Tablet, [facility]/pharmacy #[id number], 180, cm, 03/22/21 11:23:00 EDT, Height Start Date: 03/28/21 Status: Ordered Pen [place], 31 G x 5 mm BD Ultra [...] mL, 0 Refills, Maintenance, 04/06/21 15:49:00 EDT, [facility]/pharmacy #[id number], Partial fill upon patient request if the prescription is for a schedule II... Start Date: 04/06/21 Status: Ordered tamsulosin 0.4 mg oral capsule 0.4 mg, 1, capsule, By Mouth, Daily, # 90 capsule, Refills 1, Tot. Refills 1, Maintenance, 219:31:00 EDT, Route to Pharmacy Electronically, [facility]/pharmacy #[id number], 180, cm, 03/22/21 11:23:00 EDT, Height [...]
--- OUTSIDE RECORDS SUMMARY | 2023-02-27 11:05 | XMS_ITS | Continuity of Care Document ---
Author Name Unknown Organization [facility] Jason lt Address [address] [place] [address]- Care Team Providers Care Training Director Name Role Phone Tyrese Diop MD Primary Care Physician [facility] Date(s): 11/13/19 - 03/12/20 [facility] Adult [address] [place] [address]- [facility] Attending Physician: Tyrese Diop MD Allergies, Adverse Reactions, Alerts Substance Reaction Severity Status metformin Active Immunizations Given and Recorded Vaccine Date Status Refusal Reason influenza virus vaccine, inactivated 1 06/29/14 Gi daniele influenza virus vaccine, inactivated 2 10/14/13 Gi daniele Diphtheria/Tet/Pertussis, Acel (oldterm) 06/12/12 Given FluLaval (oldterm) 3 11/19/10 Given Tetanus Toxoid Vaccine (oldterm) 01/25/05 Given 1Result Comment: [12/26/2014] [employer] sold home 2Admin Note: WORK 10-13 3Admin Note: declines Medications aspirin buffered 325 mg oral tablet 1 tablet = 325 mg, By Mouth, Daily, # 30 tablet, 0 Refills, Maintenance, 01/17/17 13:47:10, Tablet Start Date: 01/17/17 Status: Ordered BD UF MINI PEN NEEDLE [id number] See Instructions, # 100 Unknown, Refills 5 [...] 0, 0, 11/21/05 16:45:48, Print TOÑITO Number, [id number], Constant Indicator Start Date: 11/21/05 Status: Ordered finasteride 5 mg oral tablet 1 tablet = 5 mg, By Mouth, Daily, # 90 tablet, 1 Refills, Soft Stop, 02/04/20 9:46:00 EDT, [facility]/pharmacy #[id number], 180, cm, 10/11/19 11:32:00 EST, Height Start Date: 02/04/20 Status: Ordered gabapentin 600 mg oral tablet See Instructions, # 270 tablet, Refills 11 Tot. Refills 11, TAKE 1 TABLET BY MOUTH 3 TIMES A DAY, [facility]/pharmacy #[id number] Start Date: 06/10/19 Status: Ordered glyBURIDE 5 mg oral tablet 10 mg, 2, tablet, By Mouth, 2 times a day, for 90 days, # 360 tablet, Refills 3, Tot. Refills 3, Acute 03/26/20 12:02:31 EDT, 04/01/19 12:02:31 EDT, Route to Pharmacy Electronically, [id number], [facility]/pharmacy #[id number] Start Date: 04/01/19 Stop Date: 03/26/20 [...] 2 Refills, Maintenance, 01/31/20 14:54:00 EDT, Tablet, [facility]/pharmacy #[id number], 180, cm, 10/11/19 11:32:00 EST, Height Start Date: 01/31/20 Status: Ordered Pen [place], 31 G x 5 mm BD Ultra Fine III See Instructions, # 1 box, Refills 5, Tot. Refills 5, Maintenance, use as directed for injection oflantus solostar, 03/31/18 16:32:05 EDT, Compound Start Date: 03/31/18 Stop Date: 09/27/18 Status: Ordered Pen [place], 31 G x 5 mm BD Ultra [...] Maintenance, 199:29:07 EDT, Route to Pharmacy Electronically, [id number], [facility]/pharmacy #[id number] Start Date: 05/14/19 Status: Ordered Problem [...] 12/23/12 Active OCD (obsessive compulsive disorder)(Confirmed) Active custodial prescription benzo 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
--- OUTSIDE RECORDS SUMMARY | 2023-02-27 11:05 | XMS_ITS | Continuity of Care Document ---
Author Name Unknown Organization [facility] Jason lt Address [address] [place] [address]- Care Team Providers Care Insurance Verification Clerk Name Role Phone Chikis BARNETT, Tyrese Heard Primary Care Physician [facility] Date[facility]s): 05/23/20 - 06/22/20 [facility] Adult [address] [place] [address]- [facility] Allergies, Adverse Reactions, Alerts Substance Reaction Severity Status metformin Active Immunizations Given and Recorded Vaccine Date Status Refusal Reason influenza virus vaccine, inactivated 1 06/29/14 Gi daniele influenza virus vaccine, inactivated 2 10/14/13 Gi daniele Diphtheria/Tet/Pertussis, Acel (oldterm) 06/12/12 Given FluLaval (oldterm) 3 11/19/10 Given Tetanus Toxoid Vaccine (oldterm) 01/25/05 Given 1Result Comment: [12/26/2014] [employer] sold home 2Admin Note: WORK 10-13 3Admin Note: declines Medications aspirin buffered 325 mg oral tablet 1 tablet = 325 mg, By Mouth, Daily, # 30 tablet, 0 Refills, Maintenance, 01/17/17 13:47:10, Tablet Start Date: 01/17/17 Status: Ordered BD UF MINI PEN NEEDLE [id number] See Instructions, # 100 Unknown, Refills 5 [...] 0, 0, 11/21/05 16:45:48, Print TOÑITO Number, [id number], Constant Indicator Start Date: 11/21/05 Status: Ordered finasteride 5 mg oral tablet 1 tablet = 5 mg, By Mouth, Daily, # 90 tablet, 1 Refills, Soft Stop, 02/04/20 9:46:00 EDT, [facility]/pharmacy #[id number], 180, cm, 10/11/19 11:32:00 EST, [...] Height Start Date: 05/20/20 Status: Ordered Pen [place], 31 G x 5 mm BD Ultra Fine III See Instructions, # 1 box, Refills 5, Tot. Refills 5, Maintenance, use as directed for injection oflantus solostar, 03/31/18 16:32:05 EDT, Compound Start Date: 03/31/18 Stop Date: 09/27/18 Status: Ordered Pen [place], 31 G x 5 mm BD Ultra [...] Maintenance, 04/27/2013:47:00 EDT, Route to Pharmacy Electronically, [facility]/pharmacy #[id number], 180, cm, 10/11/19 11:32:00 EST,Height [...] 12/23/12 Active OCD (obsessive compulsive disorder)(Confirmed) Active nursing home prescription benzo 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
[2023-02-27 11:07] LABS: MANUAL DIFF FLAG NO
[2023-02-27 11:09] LABS: Basophils Percent Auto 0.6 % (0-2); Eosinophils Absolute Auto 0.3 X10*3/uL (0.0-0.4); Eosinophils Percent Auto 4.3 % (0-4); Hematocrit 29.8 % (42.0-52.0); Hemoglobin 9.3 g/dl (14.0-18.0); Imm Gran Abs Auto 0.14 X10*3/uL (0.00-0.03); Imm Gran Pct Auto 1.9 % (0.0-0.4); Lymphocytes Percent Auto 14.2 % (20-40); Mean Corpuscular HGB Conc 31.2 g/dl (31.0-36.0); Mean Corpuscular Volume 89.8 fL (80.0-98.0); Mean Platelet Volume 8.8 fL (9.4-12.4); Monocytes Absolute Auto 0.6 X10*3/uL (0.1-1.2); Monocytes Percent Auto 7.7 % (2-11); Neutrophils Absolute Auto 5.2 x10*3/uL (2.0-8.3); Neutrophils Percent Auto 71.3 % (45-73); Platelet Count 272 X10*3/uL (160-400); Red Blood Count 3.32 X10*6/uL (4.60-5.80); Red Cell Distribution Width 15.2 % (11.0-16.0); White Blood Count 7.2 X10*3/uL (4.8-10.8)
--- NOTE | 2023-02-27 11:09 | MHC.EDTECH ---
@1102AM CALL PLACED TO [facility] PT TX LINE @ FITNESS DIRECTOR GASTON REQUEST MAYNOR ANSWERS, ASKS FOR PT INFO, THEN ASKS SPEAKS WITH GASTON FELDMAN TAKES OVER CALL RIGHT AWAY
[2023-02-27 11:15] LABS: INTERNATIONAL NORM RATIO 1.1 (0.9-1.1); Prothrombin Time 12.6 SEC (10.0-13.1)
--- NOTE | 2023-02-27 11:15 | PC.NURSE ---
pt is alert and oriented, skin slightly pale but pt has hx of prostate cancer most likely pt's baseline, speaking in full clear sentences, respirations even and unlabored, hand grasp strong and equal, moving all extremities, pt coming from home for a unwitnessed fall, pt typical ambulates with a walker was not using the walker this morning, pt does not remember how he fell thinks he blocked out because his girlfriend was calling his name while on the floor, pt presents with large right posterior head hematoma and nausea. ns on the monitor
[2023-02-27 11:28] LABS: Alanine Aminotransferase 8 U/L (0-40); Albumin Level 3.9 g/dL (3.5-5.0); Alkaline Phosphatase 405 U/L (39-117); Anion Gap 13 (12-20); Aspartate Amino Transferase 32 U/L (5-37); Bilirubin Direct 0.2 mg/dL (0.0-0.5); Bilirubin Total 0.5 mg/dL (0.0-1.0); Blood Urea Nitrogen 17 mg/dL (9-16); Calcium 8.9 mg/dL (8.4-10.2); Carbon Dioxide 24 mmol/L (22-29); Chloride 104 mmol/L (96-108); Creatinine Clr Calc Pharmacy 107.6; Estimated Glomerular Filt Rate > 60; Glucose Random 235 mg/dL (60-115); Potassium 4.3 mmol/L (3.3-5.1); Sodium 137 mmol/L (135-145); Total Protein 6.1 g/dL (6.5-8.0)
--- NOTE | 2023-02-27 11:30 | MHC.EDTECH ---
@1123AM CALL RECEIVED FROM [facility] PT TX LINE ASKING TO SPEAK WITH GASTON FELDMAN TAKES OVER CALL RIGHT AWAY GIVES DR GARCIA ACCEPTING MD TO THE TRAUMA ER [facility] FROM [place] [facility] AWARE
[2023-02-27 11:35] LABS: Troponin-I High Sensitivity 4.1 ng/L (<3.5-35.0)
--- NOTE | 2023-02-27 11:36 | PC.NURSE ---
report given to li schaffer at [facility]
[2023-02-27 11:40] VITALS: BP 153/67; PULSE 87; RESP 18; O2SAT 100
[2023-02-27 11:46] LABS: COVID-19 Test Negative (Negative); IDNOW Serial# 08D9AD1C
== END 2023-02-27 11:45 | disposition short-term general hospital (02) ==
PROVIDERS: Nurse Practitioner Family; Emergency Provider Emergency Medicine; PCP Internal Medicine
DX: S06.5XAA Traumatic subdural hemorrhage with loss of consciousness status unknown, initial encounter (principal); W19.XXXA Unspecified fall, initial encounter; R11.2 Nausea with vomiting, unspecified; C61 Malignant neoplasm of prostate; C79.51 Secondary malignant neoplasm of bone; E11.9 Type 2 diabetes mellitus without complications; I10 Essential (primary) hypertension; E78.5 Hyperlipidemia, unspecified; Z79.82 Long term (current) use of aspirin; Z20.822 Contact with and (suspected) exposure to COVID-19; Y93.9 Activity, unspecified; Y92.019 Unspecified place in single-family (private) house as the place of occurrence of the external cause; Y99.9 Unspecified external cause status; Z79.4 Long term (current) use of insulin; Z79.899 Other long term (current) drug therapy
CPT/HCPCS: 36415; 70450; 72125; 80048; 80076; 84484; 85025; 85610; 86850; 86900; 86901; 87635; 93005; 96374; 96376; 99284; 99285; J2405